=== PATIENT | male | born 1940 | race Caucasian/White ===

== ENCOUNTER → 2016-12-01 | Outpatient (CLI) | payer MEDICARE ==
[~2016-12-01] MED LIST: ACET30TAB PO; AMIT10TA PO; AMIT50TA PO; AMOX500C PO; CARV25TA PO; CEPH500C PO; CORE3.12 PO; DIGO0.12 PO; DIOV40TA PO; HUMU70IN SC; INSULIN SQ; LEVO200T4 PO; PRAV40TA2 PO; PROC5TA PO; VALS80TA PO; VIBR100C PO; [UNRECOGNIZED DRUG - CODE] PO; antibiotic PO
[2016-12-01 10:22] LABS: MEAN CORPUSCULAR HGB CONC 36.2 g/dl (32.0-36.5); MEAN CORPUSCULAR VOLUME 88.6 fl (80.0-96.0); RED CELL DISTRIBUTION WIDTH 12.7 % (11.5-14.5); WHITE BLOOD COUNT 4.6 K/mm3 (4.0-10.0)
[2016-12-01 10:29] LABS: INR 0.98
[2016-12-01 10:51] LABS: ALBUMIN 3.2 GM/DL (3.2-5.2); ALBUMIN/GLOBULIN RATIO 1.1 (1.00-1.93); BILIRUBIN,TOTAL 0.3 MG/DL (0.2-1.0); CALCIUM LEVEL 8.7 MG/DL (8.8-10.2); CREATININE FOR GFR 1.51 MG/DL (0.70-1.30); GLOMERULAR FILTRATION RATE 48.2 (>42); POTASSIUM SERUM 4.2 MEQ/L (3.5-5.1); TOTAL PROTEIN 6.1 GM/DL (6.4-8.2)
--- NOTE | 2016-12-01 11:05 | REP ---
Clinical: Preoperative assessment . Comparison: 04/20/2016 . Technique: PA and lateral. Findings: The mediastinum and cardiac silhouette are stable. The lung barrios demonstrate chronic stable changes without acute consolidation, effusion, or pneumothorax. The skeletal structures are intact and normal. Impression: 1. No acute cardiopulmonary process. Signed by Buzz Devine MD 12/01/2016 10:56 A
--- NOTE | 2016-12-01 22:21 | ECGEPIP ---
Stationary ECG Study [facility] Test Date: 2016-12-01 Pat Name: CESILIA SANDOVAL Department: Room: - Gender: M Ladle Watcher: : 1940 Requested By: Lesa Mackey Order Number: [id number] Reading MD: Fer Whaley Measurements Intervals [place] Rate: 62 P: 59 OR: 178 QRS: -73 QRSD: 109 T: 51 QT: 404 QTc: 411 Interpretive Statements SINUS RHYTHM OLD INFERIOR MYOCARDIAL INFARCTION Low limb lead voltages, nonspecific T-wave abnormalities. Marked left axis deviation, possible left anterior fascicular block. No significant change compared with 04/20/2016. Electronically Signed On 12-01-2016 22:21:36 EST by Fer Whaley
== END ==
LOC: M LAB 09:42
PROVIDERS: ATTEND Family Medicine
DX: Z01.818 Encounter for other preprocedural examination (principal); H25.9 Unspecified age-related cataract; I10 Essential (primary) hypertension; E11.9 Type 2 diabetes mellitus without complications

== ENCOUNTER → 2016-12-09 | Day surgery (SDC) | payer MEDICARE ==
[~2016-12-09] VITALS: Ht 188 cm; Wt 79.8 kg
[~2016-12-09] MED LIST changes: +ACETAMINOPHEN 325 MG TAB PO PRN; +AcetaZOLAMIDE 500 MG ER CAP PO ONE; +BSS with VANC/TOB/EPI for EYE CASES IR ONE; +CYCLOPENTOLATE 2% OPHTH SOLN XX ONE; +D5W/0.2% SODIUM CHLORIDE 250 ML IV SCH; +HEALON DUET (HEALON 10MG/ML 0.55ML & HEALON ENDOCOAT 30MG/ML 0.85ML) As Ordered ONE; +HEALON DUET (HEALON 10MG/ML 0.55ML & HEALON ENDOCOAT 30MG/ML 0.85ML) XX ONE; +KETOROLAC 0.5% OPHTH SOLN OD ONE; +LIDOCAINE 1% SDV 5 ML VIAL As Ordered ONE; +LIDOCAINE 1% SDV 5 ML VIAL XX ONE; +LIDOCAINE 4% INJ 5 ML AMP OU ONE; +LIDOCAINE W/EPINEPHRINE 1% 20ML VIAL XX ONE; +LR 1,000 ML IV SCH; +MIDAZOLAM INJ 2 MG/2 ML VIAL (J2250) As Ordered ONE; +MOXIFLOXACIN IN BSS 0.25MG/0.25ML INTRACAMERAL INJ (OR EYE ONLY)(J2280) As Ordered ONE; +MOXIFLOXACIN IN BSS 0.25MG/0.25ML INTRACAMERAL INJ (OR EYE ONLY)(J2280) ICAM ONE; +OFLOXACIN 0.3 % (OCUFLOX) OPTH SOL 5ML XX ONE; +PHENYLEPHRINE 2.5% OPHTH SOL 2ML XX ONE; +POVIDONE-IODINE 5% OPHTH PREP SOL 30ML As Ordered ONE; +PROPARACAINE 0.5% OPHTH SOL 15ML OD PRN; +TRIAMCINOLONE PRES FR 40 MG/ML 1ML(TRIESENCE)(OR EYE ONLY)(J3300 PER 1MG) As Ordered ONE; +TRIAMCINOLONE PRES FR 40 MG/ML 1ML(TRIESENCE)(OR EYE ONLY)(J3300 PER 1MG) IO ONE; +TRIMETHOBENZAMIDE 300 MG CAP PO PRN; +TROPICAMIDE 1% OPHTH SOLN 2 ML XX ONE; +fentaNYL 100 MCG/2 ML INJECTION (J3010) As Ordered ONE
[2016-12-09 11:15] VITALS: BP 150/74
== END | disposition home or self-care (01) ==
LOC: M SDC 09:33
PROVIDERS: ATTEND Ophthalmology
DX: H26.9 Unspecified cataract (principal); I10 Essential (primary) hypertension; E10.9 Type 1 diabetes mellitus without complications; I49.9 Cardiac arrhythmia, unspecified; K59.00 Constipation, unspecified; E78.00 Pure hypercholesterolemia, unspecified; K21.9 Gastro-esophageal reflux disease without esophagitis; M54.2 Cervicalgia; M19.90 Unspecified osteoarthritis, unspecified site; Z88.8 Allergy status to other drugs, medicaments and biological substances
CPT/HCPCS: 66984; J2250; J2280; J3010; J3300; V2632

== ENCOUNTER → 2016-12-16 | Day surgery (SDC) | payer MEDICARE ==
[~2016-12-16] VITALS: Ht 188 cm; Wt 79.8 kg
[~2016-12-16] MED LIST changes: +CYCLOPENTOLATE 2% OPHTH SOLN As Ordered ONE; +CYCLOPENTOLATE 2% OPHTH SOLN OS ONE; -CYCLOPENTOLATE 2% OPHTH SOLN XX ONE; -D5W/0.2% SODIUM CHLORIDE 250 ML IV SCH; -HEALON DUET (HEALON 10MG/ML 0.55ML & HEALON ENDOCOAT 30MG/ML 0.85ML) XX ONE; -KETOROLAC 0.5% OPHTH SOLN OD ONE; +KETOROLAC 0.5% OPHTH SOLN OS ONE; +LABETALOL HCL 100 MG/20 ML VIAL As Ordered ONE; -LIDOCAINE 1% SDV 5 ML VIAL XX ONE; +LIDOCAINE W/EPINEPHRINE 1% 20ML VIAL As Ordered ONE; -LIDOCAINE W/EPINEPHRINE 1% 20ML VIAL XX ONE; -LR 1,000 ML IV SCH; -MOXIFLOXACIN IN BSS 0.25MG/0.25ML INTRACAMERAL INJ (OR EYE ONLY)(J2280) ICAM ONE; +OFLOXACIN 0.3 % (OCUFLOX) OPTH SOL 5ML As Ordered ONE; +OFLOXACIN 0.3 % (OCUFLOX) OPTH SOL 5ML OS ONE; -OFLOXACIN 0.3 % (OCUFLOX) OPTH SOL 5ML XX ONE; +PHENYLEPHRINE 2.5% OPHTH SOL 2ML As Ordered ONE; +PHENYLEPHRINE 2.5% OPHTH SOL 2ML OS ONE; -PHENYLEPHRINE 2.5% OPHTH SOL 2ML XX ONE; -PROPARACAINE 0.5% OPHTH SOL 15ML OD PRN; +PROPARACAINE 0.5% OPHTH SOL 15ML OS PRN; -TRIAMCINOLONE PRES FR 40 MG/ML 1ML(TRIESENCE)(OR EYE ONLY)(J3300 PER 1MG) IO ONE; +TROPICAMIDE 1% OPHTH SOLN 2 ML As Ordered ONE; +TROPICAMIDE 1% OPHTH SOLN 2 ML OS ONE; -TROPICAMIDE 1% OPHTH SOLN 2 ML XX ONE
[2016-12-16 09:30] VITALS: BP 217/104
== END | disposition home or self-care (01) ==
LOC: M SDC 06:40
PROVIDERS: ATTEND Ophthalmology
DX: H26.9 Unspecified cataract (principal); I10 Essential (primary) hypertension; E10.9 Type 1 diabetes mellitus without complications; I49.9 Cardiac arrhythmia, unspecified; K21.9 Gastro-esophageal reflux disease without esophagitis; K59.00 Constipation, unspecified; E07.9 Disorder of thyroid, unspecified; M54.2 Cervicalgia; M19.90 Unspecified osteoarthritis, unspecified site; Z85.819 Personal history of malignant neoplasm of unspecified site of lip, oral cavity, and pharynx; Z92.3 Personal history of irradiation; Z88.8 Allergy status to other drugs, medicaments and biological substances; Z79.899 Other long term (current) drug therapy
CPT/HCPCS: 66984; J2250; J2280; J3010; J3300; V2632

== ENCOUNTER → 2017-11-15 | Outpatient (CLI) | payer MEDICARE ==
[2017-11-15 13:22] LABS: HEMOGLOBIN 13.6 g/dl (14.0-18.0); MEAN CORPUSCULAR VOLUME 88.1 fl (80.0-96.0); PLATELET COUNT, AUTOMATED 305 10^3/uL (150-450); RED BLOOD COUNT 4.54 10^6/uL (4.30-6.10); RED CELL DISTRIBUTION WIDTH 12.7 % (11.5-14.5)
[2017-11-15 13:49] LABS: ESTIMATED AVERAGE GLUCOSE 321 MG/DL (60-110); HEMOGLOBIN A1c 12.8 %
[2017-11-15 14:22] LABS: ALBUMIN 3.3 GM/DL (3.2-5.2); ALBUMIN/GLOBULIN RATIO 0.94 (1.00-1.93); ALKALINE PHOSPHATASE 101 U/L (45-117); ALT/SGPT 17 U/L (12-78); ANION GAP 5 MEQ/L (8-16); AST/SGOT 15 U/L (7-37); BILIRUBIN,TOTAL 0.4 MG/DL (0.2-1.0); BLOOD UREA NITROGEN 35 MG/DL (7-18); CALCIUM LEVEL 8.9 MG/DL (8.8-10.2); CARBON DIOXIDE LEVEL 33 MEQ/L (21-32); CHLORIDE LEVEL 95 MEQ/L (98-107); CHOLESTEROL LEVEL 154 MG/DL (<200); CHOLESTEROL RISK RATIO 2.961 (<5); CREATININE FOR GFR 1.52 MG/DL (0.70-1.30); GLOMERULAR FILTRATION RATE 47.7 (>42); GLUCOSE, FASTING 318 MG/DL (70-100); HDL CHOLESTEROL 52 MG/DL (>40); NON-HDL-C 102 MG/DL; POTASSIUM SERUM 5.1 MEQ/L (3.5-5.1); PROSTATIC SPECIFIC AG MONITOR 0.93 NG/ML (< 4.0); SODIUM LEVEL 133 MEQ/L (136-145); TOTAL PROTEIN 6.8 GM/DL (6.4-8.2); TRIGLYCERIDES LEVEL 115 MG/DL (<150)
== END ==
LOC: M LAB 12:16
DX: I10 Essential (primary) hypertension (principal); E11.9 Type 2 diabetes mellitus without complications; N40.0 Benign prostatic hyperplasia without lower urinary tract symptoms; I44.4 Left anterior fascicular block; I45.9 Conduction disorder, unspecified
CPT/HCPCS: 71046

== ENCOUNTER → 2019-03-10 | Outpatient (CLI) | payer MEDICARE ==
[~2019-03-10] MED LIST changes: +ACET-716 PO; -ACET30TAB PO; -ACETAMINOPHEN 325 MG TAB PO PRN; -AcetaZOLAMIDE 500 MG ER CAP PO ONE; -BSS with VANC/TOB/EPI for EYE CASES IR ONE; -CYCLOPENTOLATE 2% OPHTH SOLN As Ordered ONE; -CYCLOPENTOLATE 2% OPHTH SOLN OS ONE; -HEALON DUET (HEALON 10MG/ML 0.55ML & HEALON ENDOCOAT 30MG/ML 0.85ML) As Ordered ONE; -KETOROLAC 0.5% OPHTH SOLN OS ONE; -LABETALOL HCL 100 MG/20 ML VIAL As Ordered ONE; -LIDOCAINE 1% SDV 5 ML VIAL As Ordered ONE; -LIDOCAINE 4% INJ 5 ML AMP OU ONE; -LIDOCAINE W/EPINEPHRINE 1% 20ML VIAL As Ordered ONE; -MIDAZOLAM INJ 2 MG/2 ML VIAL (J2250) As Ordered ONE; -MOXIFLOXACIN IN BSS 0.25MG/0.25ML INTRACAMERAL INJ (OR EYE ONLY)(J2280) As Ordered ONE; -OFLOXACIN 0.3 % (OCUFLOX) OPTH SOL 5ML As Ordered ONE; -OFLOXACIN 0.3 % (OCUFLOX) OPTH SOL 5ML OS ONE; -PHENYLEPHRINE 2.5% OPHTH SOL 2ML As Ordered ONE; -PHENYLEPHRINE 2.5% OPHTH SOL 2ML OS ONE; -POVIDONE-IODINE 5% OPHTH PREP SOL 30ML As Ordered ONE; -PROPARACAINE 0.5% OPHTH SOL 15ML OS PRN; -TRIAMCINOLONE PRES FR 40 MG/ML 1ML(TRIESENCE)(OR EYE ONLY)(J3300 PER 1MG) As Ordered ONE; -TRIMETHOBENZAMIDE 300 MG CAP PO PRN; -TROPICAMIDE 1% OPHTH SOLN 2 ML As Ordered ONE; -TROPICAMIDE 1% OPHTH SOLN 2 ML OS ONE; -fentaNYL 100 MCG/2 ML INJECTION (J3010) As Ordered ONE
[2019-03-10 10:00] LABS: HEMATOCRIT 39.6 % (42.0-52.0); HEMOGLOBIN 13.2 g/dl (13.5-17.5); MEAN CORPUSCULAR HEMOGLOBIN 30.1 pg (27.0-33.0); MEAN CORPUSCULAR HGB CONC 33.3 g/dl (32.0-36.5); MEAN CORPUSCULAR VOLUME 90.4 fl (80.0-96.0); PLATELET COUNT, AUTOMATED 299 10^3/uL (150-450); RED BLOOD COUNT 4.38 10^6/uL (4.30-6.10); WHITE BLOOD COUNT 6.5 10^3/uL (4.0-10.0)
[2019-03-10 10:27] LABS: HEMOGLOBIN A1c 12.5 %
[2019-03-10 10:38] LABS: ALBUMIN 3.1 GM/DL (3.2-5.2); BILIRUBIN,TOTAL 0.4 MG/DL (0.2-1.0); CALCIUM LEVEL 9.1 MG/DL (8.8-10.2); CHOLESTEROL RISK RATIO 3.425 (<5); CREATININE FOR GFR 1.81 MG/DL (0.70-1.30); GLOMERULAR FILTRATION RATE 38.9 (>42); POTASSIUM SERUM 4.6 MEQ/L (3.5-5.1); PROSTATIC SPECIFIC AG MONITOR 1.26 NG/ML (< 4.00); THYROID STIMULATING HORMONE 71.1 uIU/ML (0.358-3.740); TOTAL PROTEIN 6.4 GM/DL (6.4-8.2)
== END ==
LOC: M LAB 09:18
PROVIDERS: ATTEND Family Medicine
DX: E03.9 Hypothyroidism, unspecified (principal); I10 Essential (primary) hypertension; E11.9 Type 2 diabetes mellitus without complications; R53.83 Other fatigue

== ENCOUNTER 2020-05-07 22:10 | Inpatient (IN) | payer MEDICARE ==
[~2020-05-07 22:10] MED LIST changes: -PROC5TA PO; +PROC5TAB57 PO
[2020-05-07] MEDS ORDERED: FUROSEMIDE 40MG/4ML VIAL (J1940) ONE (23:01)
[2020-05-08] MEDS ORDERED: hydrALAZINE 20MG/ML 1ML VIAL (J0360 PER 20MG) ONE (00:38)
[2020-05-08] MEDS ORDERED: HumaLOG INSULIN (NovoLOG) PER UNIT As Ordered ONE ×4 (09:02→20:35)
[2020-05-08] MEDS ORDERED: CARVedilol 12.5 MG TAB As Ordered ONE ×2 (09:03→20:35)
[2020-05-08] MEDS ORDERED: DIGOXIN 0.125 MG TAB As Ordered ONE (09:03)
[2020-05-08] MEDS ORDERED: FUROSEMIDE 40MG/4ML VIAL (J1940) As Ordered ONE ×2 (09:03→17:49)
[2020-05-08] MEDS ORDERED: LIDOCAINE 5% (LIDODERM) PATCH As Ordered ONE (09:05)
[2020-05-08] MEDS ORDERED: NORCO, ANEXSIA 5/325MG TABLET (HYDROcodone/ACETAMINOPHEN) As Ordered ONE (17:49)
[2020-05-08] MEDS ORDERED: AMITRIPTYLINE 50 MG TAB As Ordered ONE (20:35)
[2020-05-08] MEDS ORDERED: CARVedilol 12.5 MG TAB ONE (23:05)
[2020-05-09] MEDS ORDERED: FUROSEMIDE 40MG/4ML VIAL (J1940) As Ordered ONE ×5 (00:06→23:57)
[2020-05-09] MEDS ORDERED: LEVOTHYROXINE 50MCG TABLET (0.05MG) As Ordered ONE (06:33)
[2020-05-09] MEDS ORDERED: LEVOTHYROXINE 100MCG TABLET (0.1MG) As Ordered ONE (06:33)
[2020-05-09] MEDS ORDERED: PRAVASTATIN 20 MG TAB As Ordered ONE (08:07)
[2020-05-09] MEDS ORDERED: HumaLOG INSULIN (NovoLOG) PER UNIT As Ordered ONE ×3 (08:07→18:51)
[2020-05-09] MEDS ORDERED: CARVedilol 12.5 MG TAB As Ordered ONE ×2 (08:07→23:55)
[2020-05-09] MEDS ORDERED: LOSARTAN 50MG TABLET As Ordered ONE (08:08)
[2020-05-09] MEDS ORDERED: DIGOXIN 0.125 MG TAB As Ordered ONE (08:08)
[2020-05-09] MEDS ORDERED: LIDOCAINE 5% (LIDODERM) PATCH As Ordered ONE (08:08)
[2020-05-09] MEDS ORDERED: AMITRIPTYLINE 50 MG TAB As Ordered ONE (20:29)
[2020-05-10] MEDS ORDERED: FUROSEMIDE 40MG/4ML VIAL (J1940) As Ordered ONE ×3 (05:57→18:13)
[2020-05-10] MEDS ORDERED: LEVOTHYROXINE 75MCG TABLET (0.075MG) As Ordered ONE (05:57)
[2020-05-10] MEDS ORDERED: PRAVASTATIN 20 MG TAB As Ordered ONE (08:24)
[2020-05-10] MEDS ORDERED: CARVedilol 12.5 MG TAB As Ordered ONE ×2 (08:24→20:48)
[2020-05-10] MEDS ORDERED: HumaLOG INSULIN (NovoLOG) PER UNIT As Ordered ONE ×5 (08:24→20:58)
[2020-05-10] MEDS ORDERED: LIDOCAINE 5% (LIDODERM) PATCH As Ordered ONE (08:24)
[2020-05-10] MEDS ORDERED: DIGOXIN 0.125 MG TAB As Ordered ONE (08:24)
[2020-05-10] MEDS ORDERED: LEVEMIR (INSULIN DETEMIR) 1 UNITS/0.01ML As Ordered ONE (20:47)
[2020-05-10] MEDS ORDERED: AMITRIPTYLINE 50 MG TAB As Ordered ONE (20:48)
[2020-05-11] MEDS ORDERED: FUROSEMIDE 40MG/4ML VIAL (J1940) As Ordered ONE ×3 (00:53→14:04)
[2020-05-11] MEDS ORDERED: LEVOTHYROXINE 75MCG TABLET (0.075MG) As Ordered ONE (06:02)
[2020-05-11] MEDS ORDERED: CARVedilol 12.5 MG TAB As Ordered ONE ×2 (08:28→20:51)
[2020-05-11] MEDS ORDERED: PRAVASTATIN 20 MG TAB As Ordered ONE (08:28)
[2020-05-11] MEDS ORDERED: HumaLOG INSULIN (NovoLOG) PER UNIT As Ordered ONE ×3 (08:28→18:49)
[2020-05-11] MEDS ORDERED: LIDOCAINE 5% (LIDODERM) PATCH As Ordered ONE (08:29)
[2020-05-11] MEDS ORDERED: DIGOXIN 0.125 MG TAB As Ordered ONE (14:03)
[2020-05-11] MEDS ORDERED: MIRALAX *UNIT DOSE* 17GM PACKET As Ordered ONE (15:51)
[2020-05-11] MEDS ORDERED: POTASSIUM CHLORIDE 10 MEQ SR TABLET As Ordered ONE (15:51)
[2020-05-11] MEDS ORDERED: NORCO, ANEXSIA 5/325MG TABLET (HYDROcodone/ACETAMINOPHEN) As Ordered ONE (20:50)
[2020-05-11] MEDS ORDERED: AMITRIPTYLINE 50 MG TAB As Ordered ONE (20:51)
[2020-05-11] MEDS ORDERED: HumuLIN R (REGULAR) INSULIN (NovoLIN R) **100U/ML** PER UNIT As Ordered ONE (20:51)
[2020-05-11] MEDS ORDERED: LEVEMIR (INSULIN DETEMIR) 1 UNITS/0.01ML As Ordered ONE (20:52)
[2020-05-11] MEDS ORDERED: TAMSULOSIN 0.4 MG CAP As Ordered ONE (20:52)
[2020-05-12] MEDS ORDERED: MIRALAX *UNIT DOSE* 17GM PACKET As Ordered ONE (08:42)
[2020-05-12] MEDS ORDERED: DIGOXIN 0.125 MG TAB As Ordered ONE (08:44)
[2020-05-12] MEDS ORDERED: LIDOCAINE 5% (LIDODERM) PATCH As Ordered ONE (08:44)
[2020-05-12] MEDS ORDERED: HumaLOG INSULIN (NovoLOG) PER UNIT As Ordered ONE ×4 (08:44→20:32)
[2020-05-12] MEDS ORDERED: PRAVASTATIN 20 MG TAB As Ordered ONE (08:44)
[2020-05-12] MEDS ORDERED: FUROSEMIDE 40MG/4ML VIAL (J1940) As Ordered ONE ×2 (08:45→19:46)
[2020-05-12] MEDS ORDERED: ENOXAPARIN 30MG/0.3ML SYRINGE (J1650 PER 10MG) As Ordered ONE (19:36)
[2020-05-12] MEDS ORDERED: TAMSULOSIN 0.4 MG CAP As Ordered ONE (20:32)
[2020-05-12] MEDS ORDERED: AMITRIPTYLINE 50 MG TAB As Ordered ONE (20:32)
[2020-05-12] MEDS ORDERED: LEVEMIR (INSULIN DETEMIR) 1 UNITS/0.01ML As Ordered ONE (20:33)
[2020-05-12] MEDS ORDERED: CARVedilol 12.5 MG TAB As Ordered ONE (20:39)
[2020-05-13] MEDS ORDERED: LEVOTHYROXINE 75MCG TABLET (0.075MG) As Ordered ONE (05:50)
[2020-05-13] MEDS ORDERED: MIRALAX *UNIT DOSE* 17GM PACKET As Ordered ONE (08:43)
[2020-05-13] MEDS ORDERED: HumaLOG INSULIN (NovoLOG) PER UNIT As Ordered ONE ×4 (08:44→20:44)
[2020-05-13] MEDS ORDERED: PRAVASTATIN 20 MG TAB As Ordered ONE (08:44)
[2020-05-13] MEDS ORDERED: FUROSEMIDE 40MG/4ML VIAL (J1940) As Ordered ONE ×2 (08:45→17:39)
[2020-05-13] MEDS ORDERED: CARVedilol 12.5 MG TAB As Ordered ONE ×2 (08:45→20:44)
[2020-05-13] MEDS ORDERED: LIDOCAINE 5% (LIDODERM) PATCH As Ordered ONE (08:45)
[2020-05-13] MEDS ORDERED: DIGOXIN 0.125 MG TAB As Ordered ONE (08:45)
[2020-05-13] MEDS ORDERED: ENOXAPARIN 30MG/0.3ML SYRINGE (J1650 PER 10MG) As Ordered ONE (08:51)
[2020-05-13] MEDS ORDERED: TAMSULOSIN 0.4 MG CAP As Ordered ONE (20:44)
[2020-05-13] MEDS ORDERED: AMITRIPTYLINE 50 MG TAB As Ordered ONE (20:44)
[2020-05-13] MEDS ORDERED: LEVEMIR (INSULIN DETEMIR) 1 UNITS/0.01ML As Ordered ONE (20:45)
[2020-05-14] MEDS ORDERED: ENOXAPARIN 30MG/0.3ML SYRINGE (J1650 PER 10MG) As Ordered ONE (08:37)
[2020-05-14] MEDS ORDERED: MIRALAX *UNIT DOSE* 17GM PACKET As Ordered ONE (08:37)
[2020-05-14] MEDS ORDERED: HumaLOG INSULIN (NovoLOG) PER UNIT As Ordered ONE ×4 (08:38→21:20)
[2020-05-14] MEDS ORDERED: PRAVASTATIN 20 MG TAB As Ordered ONE (08:38)
[2020-05-14] MEDS ORDERED: CARVedilol 12.5 MG TAB As Ordered ONE ×2 (08:38→21:20)
[2020-05-14] MEDS ORDERED: FUROSEMIDE 40MG/4ML VIAL (J1940) As Ordered ONE (08:39)
[2020-05-14] MEDS ORDERED: LIDOCAINE 5% (LIDODERM) PATCH As Ordered ONE (08:39)
[2020-05-14] MEDS ORDERED: DIGOXIN 0.125 MG TAB As Ordered ONE (08:39)
[2020-05-14] MEDS ORDERED: TORSEMIDE 20 MG TAB As Ordered ONE (17:25)
[2020-05-14] MEDS ORDERED: AMITRIPTYLINE 50 MG TAB As Ordered ONE (21:20)
[2020-05-14] MEDS ORDERED: TAMSULOSIN 0.4 MG CAP As Ordered ONE (21:21)
[2020-05-14] MEDS ORDERED: LEVEMIR (INSULIN DETEMIR) 1 UNITS/0.01ML As Ordered ONE (21:21)
[2020-05-14] MEDS ORDERED: NORCO, ANEXSIA 5/325MG TABLET (HYDROcodone/ACETAMINOPHEN) As Ordered ONE (21:25)
[2020-05-15] MEDS ORDERED: ENOXAPARIN 30MG/0.3ML SYRINGE (J1650 PER 10MG) As Ordered ONE (08:13)
[2020-05-15] MEDS ORDERED: MIRALAX *UNIT DOSE* 17GM PACKET As Ordered ONE (08:14)
[2020-05-15] MEDS ORDERED: PRAVASTATIN 20 MG TAB As Ordered ONE (08:15)
[2020-05-15] MEDS ORDERED: HumaLOG INSULIN (NovoLOG) PER UNIT As Ordered ONE ×3 (08:15→20:48)
[2020-05-15] MEDS ORDERED: CARVedilol 12.5 MG TAB As Ordered ONE (08:16)
[2020-05-15] MEDS ORDERED: LIDOCAINE 5% (LIDODERM) PATCH As Ordered ONE (08:16)
[2020-05-15] MEDS ORDERED: DIGOXIN 0.125 MG TAB As Ordered ONE (08:16)
[2020-05-15] MEDS ORDERED: TORSEMIDE 20 MG TAB As Ordered ONE (08:16)
[2020-05-15] MEDS ORDERED: CARVedilol 6.25 MG TAB As Ordered ONE (20:48)
[2020-05-15] MEDS ORDERED: AMITRIPTYLINE 50 MG TAB As Ordered ONE (20:48)
[2020-05-15] MEDS ORDERED: TAMSULOSIN 0.4 MG CAP As Ordered ONE (20:48)
[2020-05-15] MEDS ORDERED: LEVEMIR (INSULIN DETEMIR) 1 UNITS/0.01ML As Ordered ONE (20:49)
[2020-05-16] MEDS ORDERED: LEVOTHYROXINE 75MCG TABLET (0.075MG) As Ordered ONE (05:50)
[2020-05-16] MEDS ORDERED: ENOXAPARIN 30MG/0.3ML SYRINGE (J1650 PER 10MG) As Ordered ONE (08:27)
[2020-05-16] MEDS ORDERED: PRAVASTATIN 20 MG TAB As Ordered ONE (08:28)
[2020-05-16] MEDS ORDERED: HumaLOG INSULIN (NovoLOG) PER UNIT As Ordered ONE ×4 (08:28→20:36)
[2020-05-16] MEDS ORDERED: CARVedilol 6.25 MG TAB As Ordered ONE ×2 (08:29→20:37)
[2020-05-16] MEDS ORDERED: TORSEMIDE 20 MG TAB As Ordered ONE (08:29)
[2020-05-16] MEDS ORDERED: LIDOCAINE 5% (LIDODERM) PATCH As Ordered ONE (08:29)
[2020-05-16] MEDS ORDERED: DIGOXIN 0.125 MG TAB As Ordered ONE (08:29)
[2020-05-16] MEDS ORDERED: MIRALAX *UNIT DOSE* 17GM PACKET As Ordered ONE (08:39)
[2020-05-16] MEDS ORDERED: FINASTERIDE 5 MG TAB As Ordered ONE (12:42)
[2020-05-16] MEDS ORDERED: AMITRIPTYLINE 50 MG TAB As Ordered ONE (20:37)
[2020-05-16] MEDS ORDERED: TAMSULOSIN 0.4 MG CAP As Ordered ONE (20:37)
[2020-05-16] MEDS ORDERED: LEVEMIR (INSULIN DETEMIR) 1 UNITS/0.01ML As Ordered ONE (20:38)
[2020-05-17] MEDS ORDERED: LEVOTHYROXINE 75MCG TABLET (0.075MG) As Ordered ONE (05:35)
[2020-05-17] MEDS ORDERED: ENOXAPARIN 30MG/0.3ML SYRINGE (J1650 PER 10MG) As Ordered ONE (08:19)
[2020-05-17] MEDS ORDERED: PRAVASTATIN 20 MG TAB As Ordered ONE (08:20)
[2020-05-17] MEDS ORDERED: FINASTERIDE 5 MG TAB As Ordered ONE (08:20)
[2020-05-17] MEDS ORDERED: DIGOXIN 0.125 MG TAB As Ordered ONE (08:20)
[2020-05-17] MEDS ORDERED: MIRALAX *UNIT DOSE* 17GM PACKET As Ordered ONE (08:20)
[2020-05-17] MEDS ORDERED: LIDOCAINE 5% (LIDODERM) PATCH As Ordered ONE (08:21)
[2020-05-17] MEDS ORDERED: CARVedilol 6.25 MG TAB As Ordered ONE ×2 (08:21→21:00)
[2020-05-17] MEDS ORDERED: TORSEMIDE 20 MG TAB As Ordered ONE ×2 (08:21→21:00)
[2020-05-17] MEDS ORDERED: HumaLOG INSULIN (NovoLOG) PER UNIT As Ordered ONE ×3 (08:22→17:07)
[2020-05-17] MEDS ORDERED: LEVOTHYROXINE 150MCG TABLET (0.15MG) ONE (13:00)
[2020-05-17] MEDS ORDERED: TAMSULOSIN 0.4 MG CAP As Ordered ONE (21:00)
[2020-05-17] MEDS ORDERED: AMITRIPTYLINE 50 MG TAB As Ordered ONE (21:00)
[2020-05-17] MEDS ORDERED: LEVEMIR (INSULIN DETEMIR) 1 UNITS/0.01ML As Ordered ONE (21:02)
[2020-05-18] MEDS ORDERED: MIRALAX *UNIT DOSE* 17GM PACKET As Ordered ONE (08:09)
[2020-05-18] MEDS ORDERED: ENOXAPARIN 30MG/0.3ML SYRINGE (J1650 PER 10MG) As Ordered ONE (08:09)
[2020-05-18] MEDS ORDERED: PRAVASTATIN 20 MG TAB As Ordered ONE (08:10)
[2020-05-18] MEDS ORDERED: HumaLOG INSULIN (NovoLOG) PER UNIT As Ordered ONE ×3 (08:10→21:16)
[2020-05-18] MEDS ORDERED: FINASTERIDE 5 MG TAB As Ordered ONE (08:10)
[2020-05-18] MEDS ORDERED: DIGOXIN 0.125 MG TAB As Ordered ONE (08:10)
[2020-05-18] MEDS ORDERED: TORSEMIDE 20 MG TAB As Ordered ONE ×2 (08:10→21:04)
[2020-05-18] MEDS ORDERED: CARVedilol 6.25 MG TAB As Ordered ONE ×2 (08:11→21:04)
[2020-05-18] MEDS ORDERED: LIDOCAINE 5% (LIDODERM) PATCH As Ordered ONE (08:11)
[2020-05-18] MEDS ORDERED: AMITRIPTYLINE 50 MG TAB As Ordered ONE (21:04)
[2020-05-18] MEDS ORDERED: TAMSULOSIN 0.4 MG CAP As Ordered ONE (21:05)
[2020-05-18] MEDS ORDERED: LEVEMIR (INSULIN DETEMIR) 1 UNITS/0.01ML As Ordered ONE (21:07)
[2020-05-19] MEDS ORDERED: LEVOTHYROXINE 150MCG TABLET (0.15MG) As Ordered ONE (05:39)
[2020-05-19] MEDS ORDERED: MIRALAX *UNIT DOSE* 17GM PACKET As Ordered ONE (08:11)
[2020-05-19] MEDS ORDERED: ENOXAPARIN 30MG/0.3ML SYRINGE (J1650 PER 10MG) As Ordered ONE (08:11)
[2020-05-19] MEDS ORDERED: FINASTERIDE 5 MG TAB As Ordered ONE (08:15)
[2020-05-19] MEDS ORDERED: HumaLOG INSULIN (NovoLOG) PER UNIT As Ordered ONE ×4 (08:15→20:41)
[2020-05-19] MEDS ORDERED: DIGOXIN 0.125 MG TAB As Ordered ONE (08:15)
[2020-05-19] MEDS ORDERED: PRAVASTATIN 20 MG TAB As Ordered ONE (08:15)
[2020-05-19] MEDS ORDERED: LIDOCAINE 5% (LIDODERM) PATCH As Ordered ONE (08:16)
[2020-05-19] MEDS ORDERED: TORSEMIDE 20 MG TAB As Ordered ONE (08:16)
[2020-05-19] MEDS ORDERED: CARVedilol 6.25 MG TAB As Ordered ONE ×2 (08:16→20:41)
[2020-05-19] MEDS ORDERED: LEVOTHYROXINE 150MCG TABLET (0.15MG) ONE (11:00)
[2020-05-19] MEDS ORDERED: AMITRIPTYLINE 50 MG TAB As Ordered ONE (20:41)
[2020-05-19] MEDS ORDERED: SENNA 8.6 MG TAB (SENOKOT) As Ordered ONE (20:41)
[2020-05-19] MEDS ORDERED: TAMSULOSIN 0.4 MG CAP As Ordered ONE (20:41)
[2020-05-19] MEDS ORDERED: LEVEMIR (INSULIN DETEMIR) 1 UNITS/0.01ML As Ordered ONE (20:42)
[2020-05-20] MEDS ORDERED: LEVOTHYROXINE 125MCG TABLET (0.125MG) As Ordered ONE (05:48)
[2020-05-20] MEDS ORDERED: LEVOTHYROXINE 25MCG TABLET (0.025MG) As Ordered ONE (05:48)
[2020-05-20] MEDS ORDERED: ENOXAPARIN 30MG/0.3ML SYRINGE (J1650 PER 10MG) As Ordered ONE (08:22)
[2020-05-20] MEDS ORDERED: MIRALAX *UNIT DOSE* 17GM PACKET As Ordered ONE (08:22)
[2020-05-20] MEDS ORDERED: HumaLOG INSULIN (NovoLOG) PER UNIT As Ordered ONE ×4 (08:24→21:33)
[2020-05-20] MEDS ORDERED: FINASTERIDE 5 MG TAB As Ordered ONE (08:25)
[2020-05-20] MEDS ORDERED: CARVedilol 6.25 MG TAB As Ordered ONE ×2 (08:25→21:30)
[2020-05-20] MEDS ORDERED: PRAVASTATIN 20 MG TAB As Ordered ONE (08:25)
[2020-05-20] MEDS ORDERED: DIGOXIN 0.125 MG TAB As Ordered ONE (08:25)
[2020-05-20] MEDS ORDERED: LIDOCAINE 5% (LIDODERM) PATCH As Ordered ONE (08:26)
[2020-05-20] MEDS ORDERED: SENNA 8.6 MG TAB (SENOKOT) As Ordered ONE ×2 (08:26→21:30)
[2020-05-20] MEDS ORDERED: TORSEMIDE 10 MG TABLET As Ordered ONE (08:26)
[2020-05-20] MEDS ORDERED: NORCO, ANEXSIA 5/325MG TABLET (HYDROcodone/ACETAMINOPHEN) As Ordered ONE (12:37)
[2020-05-20] MEDS ORDERED: MOM 30ML SUSPENSION UDC As Ordered ONE (19:34)
[2020-05-20] MEDS ORDERED: TAMSULOSIN 0.4 MG CAP As Ordered ONE (21:30)
[2020-05-20] MEDS ORDERED: AMITRIPTYLINE 50 MG TAB As Ordered ONE (21:30)
[2020-05-20] MEDS ORDERED: LEVEMIR (INSULIN DETEMIR) 1 UNITS/0.01ML As Ordered ONE (21:32)
[2020-05-21] MEDS ORDERED: ENOXAPARIN 30MG/0.3ML SYRINGE (J1650 PER 10MG) As Ordered ONE (08:19)
[2020-05-21] MEDS ORDERED: MIRALAX *UNIT DOSE* 17GM PACKET As Ordered ONE (08:19)
[2020-05-21] MEDS ORDERED: HumaLOG INSULIN (NovoLOG) PER UNIT As Ordered ONE ×4 (08:21→20:43)
[2020-05-21] MEDS ORDERED: FINASTERIDE 5 MG TAB As Ordered ONE (08:21)
[2020-05-21] MEDS ORDERED: DIGOXIN 0.125 MG TAB As Ordered ONE (08:22)
[2020-05-21] MEDS ORDERED: PRAVASTATIN 20 MG TAB As Ordered ONE (08:22)
[2020-05-21] MEDS ORDERED: CARVedilol 6.25 MG TAB As Ordered ONE ×2 (08:22→20:43)
[2020-05-21] MEDS ORDERED: TORSEMIDE 10 MG TABLET As Ordered ONE (08:23)
[2020-05-21] MEDS ORDERED: SENNA 8.6 MG TAB (SENOKOT) As Ordered ONE (08:23)
[2020-05-21] MEDS ORDERED: LIDOCAINE 5% (LIDODERM) PATCH As Ordered ONE (08:38)
[2020-05-21] MEDS ORDERED: NORCO, ANEXSIA 5/325MG TABLET (HYDROcodone/ACETAMINOPHEN) As Ordered ONE (20:42)
[2020-05-21] MEDS ORDERED: AMITRIPTYLINE 50 MG TAB As Ordered ONE (20:43)
[2020-05-21] MEDS ORDERED: TAMSULOSIN 0.4 MG CAP As Ordered ONE (20:43)
[2020-05-21] MEDS ORDERED: LEVEMIR (INSULIN DETEMIR) 1 UNITS/0.01ML As Ordered ONE (20:44)
[2020-05-22] MEDS ORDERED: ENOXAPARIN 30MG/0.3ML SYRINGE (J1650 PER 10MG) As Ordered ONE (09:10)
[2020-05-22] MEDS ORDERED: MIRALAX *UNIT DOSE* 17GM PACKET As Ordered ONE (09:10)
[2020-05-22] MEDS ORDERED: PRAVASTATIN 20 MG TAB As Ordered ONE (09:12)
[2020-05-22] MEDS ORDERED: HumaLOG INSULIN (NovoLOG) PER UNIT As Ordered ONE ×3 (09:12→18:18)
[2020-05-22] MEDS ORDERED: FINASTERIDE 5 MG TAB As Ordered ONE (09:12)
[2020-05-22] MEDS ORDERED: DIGOXIN 0.125 MG TAB As Ordered ONE (09:13)
[2020-05-22] MEDS ORDERED: TORSEMIDE 10 MG TABLET As Ordered ONE (09:13)
[2020-05-22] MEDS ORDERED: CARVedilol 6.25 MG TAB As Ordered ONE ×2 (09:13→21:52)
[2020-05-22] MEDS ORDERED: SENNA 8.6 MG TAB (SENOKOT) As Ordered ONE (09:14)
[2020-05-22] MEDS ORDERED: LIDOCAINE 5% (LIDODERM) PATCH As Ordered ONE (09:14)
[2020-05-22] MEDS ORDERED: AMITRIPTYLINE 50 MG TAB As Ordered ONE (21:51)
[2020-05-22] MEDS ORDERED: NORCO, ANEXSIA 5/325MG TABLET (HYDROcodone/ACETAMINOPHEN) As Ordered ONE (21:51)
[2020-05-22] MEDS ORDERED: TAMSULOSIN 0.4 MG CAP As Ordered ONE (21:52)
[2020-05-22] MEDS ORDERED: LEVEMIR (INSULIN DETEMIR) 1 UNITS/0.01ML As Ordered ONE (21:53)
[2020-05-23] MEDS ORDERED: FINASTERIDE 5 MG TAB As Ordered ONE (09:35)
[2020-05-23] MEDS ORDERED: CARVedilol 6.25 MG TAB As Ordered ONE ×2 (09:36→20:56)
[2020-05-23] MEDS ORDERED: ENOXAPARIN 30MG/0.3ML SYRINGE (J1650 PER 10MG) As Ordered ONE (09:40)
[2020-05-23] MEDS ORDERED: MIRALAX *UNIT DOSE* 17GM PACKET As Ordered ONE (09:40)
[2020-05-23] MEDS ORDERED: HumaLOG INSULIN (NovoLOG) PER UNIT As Ordered ONE ×3 (09:44→17:22)
[2020-05-23] MEDS ORDERED: PRAVASTATIN 20 MG TAB As Ordered ONE (09:46)
[2020-05-23] MEDS ORDERED: TORSEMIDE 10 MG TABLET As Ordered ONE (09:47)
[2020-05-23] MEDS ORDERED: SENNA 8.6 MG TAB (SENOKOT) As Ordered ONE (09:47)
[2020-05-23] MEDS ORDERED: LIDOCAINE 5% (LIDODERM) PATCH As Ordered ONE (09:47)
[2020-05-23] MEDS ORDERED: VARIBAR NECTAR 40% w/v 240ML SUSP BTL As Ordered ONE (10:50)
[2020-05-23] MEDS ORDERED: E-Z-PAQUE 96% w/w SUSP 176GM BTL As Ordered ONE (10:50)
[2020-05-23] MEDS ORDERED: VARIBAR PUDDING 40% w/v 230ML TUBE As Ordered ONE (10:50)
[2020-05-23] MEDS ORDERED: AMITRIPTYLINE 50 MG TAB As Ordered ONE (20:56)
[2020-05-23] MEDS ORDERED: TAMSULOSIN 0.4 MG CAP As Ordered ONE (20:56)
[2020-05-23] MEDS ORDERED: LEVEMIR (INSULIN DETEMIR) 1 UNITS/0.01ML As Ordered ONE (20:57)
[2020-05-23] MEDS ORDERED: NORCO, ANEXSIA 5/325MG TABLET (HYDROcodone/ACETAMINOPHEN) As Ordered ONE (21:00)
[2020-05-24] MEDS ORDERED: HumaLOG INSULIN (NovoLOG) PER UNIT As Ordered ONE ×4 (09:29→21:21)
[2020-05-24] MEDS ORDERED: PRAVASTATIN 20 MG TAB As Ordered ONE (09:30)
[2020-05-24] MEDS ORDERED: FINASTERIDE 5 MG TAB As Ordered ONE ×2 (09:30→09:40)
[2020-05-24] MEDS ORDERED: LIDOCAINE 5% (LIDODERM) PATCH As Ordered ONE (09:31)
[2020-05-24] MEDS ORDERED: TORSEMIDE 10 MG TABLET As Ordered ONE (09:31)
[2020-05-24] MEDS ORDERED: CARVedilol 6.25 MG TAB As Ordered ONE ×2 (09:31→21:21)
[2020-05-24] MEDS ORDERED: DIGOXIN 0.125 MG TAB As Ordered ONE (09:31)
[2020-05-24] MEDS ORDERED: ENOXAPARIN 40MG/0.4ML SYRINGE (J1650 PER 10MG) As Ordered ONE (09:31)
[2020-05-24] MEDS ORDERED: AMITRIPTYLINE 50 MG TAB As Ordered ONE (21:21)
[2020-05-24] MEDS ORDERED: TAMSULOSIN 0.4 MG CAP As Ordered ONE (21:21)
[2020-05-24] MEDS ORDERED: LEVEMIR (INSULIN DETEMIR) 1 UNITS/0.01ML As Ordered ONE (21:22)
[2020-05-24] MEDS ORDERED: SENNA 8.6 MG TAB (SENOKOT) As Ordered ONE (21:22)
[2020-05-25] MEDS ORDERED: MIRALAX *UNIT DOSE* 17GM PACKET As Ordered ONE ×2 (09:20→09:57)
[2020-05-25] MEDS ORDERED: ENOXAPARIN 30MG/0.3ML SYRINGE (J1650 PER 10MG) As Ordered ONE (09:20)
[2020-05-25] MEDS ORDERED: HumaLOG INSULIN (NovoLOG) PER UNIT As Ordered ONE ×3 (09:22→17:33)
[2020-05-25] MEDS ORDERED: FINASTERIDE 5 MG TAB As Ordered ONE (09:23)
[2020-05-25] MEDS ORDERED: CARVedilol 6.25 MG TAB As Ordered ONE ×2 (09:23→21:14)
[2020-05-25] MEDS ORDERED: PRAVASTATIN 20 MG TAB As Ordered ONE (09:23)
[2020-05-25] MEDS ORDERED: DIGOXIN 0.125 MG TAB As Ordered ONE (09:23)
[2020-05-25] MEDS ORDERED: LIDOCAINE 5% (LIDODERM) PATCH As Ordered ONE (09:24)
[2020-05-25] MEDS ORDERED: SENNA 8.6 MG TAB (SENOKOT) As Ordered ONE ×2 (09:24→21:15)
[2020-05-25] MEDS ORDERED: TORSEMIDE 10 MG TABLET As Ordered ONE ×2 (09:24→21:15)
[2020-05-25] MEDS ORDERED: AMITRIPTYLINE 50 MG TAB As Ordered ONE (21:14)
[2020-05-25] MEDS ORDERED: TAMSULOSIN 0.4 MG CAP As Ordered ONE (21:14)
[2020-05-25] MEDS ORDERED: LEVEMIR (INSULIN DETEMIR) 1 UNITS/0.01ML As Ordered ONE (21:16)
[2020-05-26] MEDS ORDERED: MIRALAX *UNIT DOSE* 17GM PACKET As Ordered ONE (09:16)
[2020-05-26] MEDS ORDERED: ENOXAPARIN 30MG/0.3ML SYRINGE (J1650 PER 10MG) As Ordered ONE (09:16)
[2020-05-26] MEDS ORDERED: HumaLOG INSULIN (NovoLOG) PER UNIT As Ordered ONE ×3 (09:18→17:38)
[2020-05-26] MEDS ORDERED: TORSEMIDE 10 MG TABLET As Ordered ONE (09:19)
[2020-05-26] MEDS ORDERED: PRAVASTATIN 20 MG TAB As Ordered ONE (09:19)
[2020-05-26] MEDS ORDERED: CARVedilol 6.25 MG TAB As Ordered ONE (09:19)
[2020-05-26] MEDS ORDERED: FINASTERIDE 5 MG TAB As Ordered ONE (09:19)
[2020-05-26] MEDS ORDERED: DIGOXIN 0.125 MG TAB As Ordered ONE (09:19)
[2020-05-26] MEDS ORDERED: LIDOCAINE 5% (LIDODERM) PATCH As Ordered ONE (09:20)
[2020-05-26] MEDS ORDERED: SENNA 8.6 MG TAB (SENOKOT) As Ordered ONE ×2 (09:20→20:34)
[2020-05-26] MEDS ORDERED: AMITRIPTYLINE 50 MG TAB As Ordered ONE (20:35)
[2020-05-26] MEDS ORDERED: TORSEMIDE 20 MG TAB As Ordered ONE (20:35)
[2020-05-26] MEDS ORDERED: CARVedilol 12.5 MG TAB As Ordered ONE (20:35)
[2020-05-26] MEDS ORDERED: TAMSULOSIN 0.4 MG CAP As Ordered ONE (20:35)
[2020-05-26] MEDS ORDERED: LEVEMIR (INSULIN DETEMIR) 1 UNITS/0.01ML As Ordered ONE (20:36)
[2020-05-27] MEDS ORDERED: LEVOTHYROXINE 150MCG TABLET (0.15MG) As Ordered ONE (05:17)
[2020-05-27] MEDS ORDERED: ENOXAPARIN 30MG/0.3ML SYRINGE (J1650 PER 10MG) As Ordered ONE (08:37)
[2020-05-27] MEDS ORDERED: MIRALAX *UNIT DOSE* 17GM PACKET As Ordered ONE (08:37)
[2020-05-27] MEDS ORDERED: FINASTERIDE 5 MG TAB As Ordered ONE (08:38)
[2020-05-27] MEDS ORDERED: HumaLOG INSULIN (NovoLOG) PER UNIT As Ordered ONE ×3 (08:38→17:28)
[2020-05-27] MEDS ORDERED: DIGOXIN 0.125 MG TAB As Ordered ONE (08:39)
[2020-05-27] MEDS ORDERED: CARVedilol 12.5 MG TAB As Ordered ONE ×2 (08:39→20:57)
[2020-05-27] MEDS ORDERED: SENNA 8.6 MG TAB (SENOKOT) As Ordered ONE ×2 (08:39→20:57)
[2020-05-27] MEDS ORDERED: PRAVASTATIN 20 MG TAB As Ordered ONE (08:39)
[2020-05-27] MEDS ORDERED: LIDOCAINE 5% (LIDODERM) PATCH As Ordered ONE (08:39)
[2020-05-27] MEDS ORDERED: TORSEMIDE 10 MG TABLET As Ordered ONE (08:39)
[2020-05-27] MEDS ORDERED: LEVOTHYROXINE 150MCG TABLET (0.15MG) ONE (13:00)
[2020-05-27] MEDS ORDERED: TORSEMIDE 20 MG TAB As Ordered ONE (20:57)
[2020-05-27] MEDS ORDERED: AMITRIPTYLINE 50 MG TAB As Ordered ONE (20:57)
[2020-05-27] MEDS ORDERED: TAMSULOSIN 0.4 MG CAP As Ordered ONE (20:58)
[2020-05-27] MEDS ORDERED: LEVEMIR (INSULIN DETEMIR) 1 UNITS/0.01ML As Ordered ONE (21:00)
[2020-05-28] MEDS ORDERED: LEVOTHYROXINE 150MCG TABLET (0.15MG) As Ordered ONE (05:51)
[2020-05-28] MEDS ORDERED: HumaLOG INSULIN (NovoLOG) PER UNIT As Ordered ONE ×3 (07:49→17:46)
[2020-05-28] MEDS ORDERED: CARV12.5 PO (11:11)
[2020-05-28] MEDS ORDERED: LOSA50TA88 PO (11:11)
[2020-05-28] MEDS ORDERED: LEVO150T42 PO (11:11)
[2020-05-28] MEDS ORDERED: DIGO0.123 PO (11:11)
[2020-05-28] MEDS ORDERED: DEXTROSE 50% 50 ML SYRINGE IV PRN (11:15)
[2020-05-28] MEDS ORDERED: NORCO, ANEXSIA 5/325MG TABLET (HYDROcodone/ACETAMINOPHEN) PO PRN (11:15)
[2020-05-28] MEDS ORDERED: GLUCAGON INJ 1MG VIAL SC PRN (11:15)
[2020-05-28] MEDS ORDERED: GLUCOSE 4GM CHEW TABLET PO PRN (11:15)
[2020-05-28] MEDS ORDERED: AMITRIPTYLINE 50 MG TAB PO SCH (21:00)
[2020-05-28] MEDS ORDERED: LEVEMIR (INSULIN DETEMIR) 1 UNITS/0.01ML SC SCH (21:00)
[2020-05-28] MEDS ORDERED: HumaLOG INSULIN (NovoLOG) PER UNIT SC SCH (21:00)
[2020-05-28] MEDS ORDERED: TAMSULOSIN 0.4 MG CAP PO SCH (21:00)
[2020-05-28] MEDS: SENNA 8.6 MG TAB (SENOKOT) PO SCH (21:28)
[2020-05-28] MEDS: CARVedilol 12.5 MG TAB PO SCH (21:29)
[2020-05-29 06:00] VITALS: BP 168/85
[2020-05-29] MEDS ORDERED: LEVOTHYROXINE 150MCG TABLET (0.15MG) PO SCH (06:00)
[2020-05-29] MEDS ORDERED: PRAVASTATIN 20 MG TAB PO SCH (09:00)
[2020-05-29] MEDS ORDERED: ENOXAPARIN 30MG/0.3ML SYRINGE (J1650 PER 10MG) SC SCH (09:00)
[2020-05-29] MEDS: SENNA 8.6 MG TAB (SENOKOT) PO SCH (09:00)
[2020-05-29] MEDS ORDERED: MIRALAX *UNIT DOSE* 17GM PACKET PO SCH (09:00)
[2020-05-29] MEDS ORDERED: DIGOXIN 0.125 MG TAB PO SCH (09:00)
[2020-05-29] MEDS ORDERED: LIDOCAINE 5% (LIDODERM) PATCH TD SCH (09:00)
[2020-05-29] MEDS ORDERED: FINASTERIDE 5 MG TAB PO SCH (09:00)
[2020-05-29] MEDS: HumaLOG INSULIN (NovoLOG) PER UNIT SC SCH ×2 (09:01→12:18)
[2020-05-29 09:02] VITALS: BP 165/93
[2020-05-29] MEDS: CARVedilol 12.5 MG TAB PO SCH (09:02)
[2020-05-29] MEDS: TORSEMIDE 10 MG TABLET PO SCH ×2 (09:02→16:14)
--- NOTE | 2020-05-29 10:33 | IPNPDOC ---
Text Note Date of Service The patient was seen on 05/29/20. NOTE patient seen briefly today. Doing well, discharge papers and summary completed yesterday. No changes, discussed with patient on his new medications and prescriptions. discussed with RN. discharge to home health today. not billable visit VS,Fishbone, I+O VS, Fishbone, I+O Vital Signs Date Time Temp Pulse Resp B/P (MAP) Pulse Ox O2 Delivery O2 Flow Rate FiO2 05/29/20 09:02 82 165/93 05/29/20 06:00 97.9 20 97 I&O- Last 24 Hours up to 6 AM 05/29/20 06:00 Intake Total 180 ml Output Total 400 ml Balance -220 ml IMELDA GLASER MD May 29, 2020 10:33
[2020-06-02] MEDS ORDERED: LEVOTHYROXINE 150MCG TABLET (0.15MG) ONE (11:00)
[2020-06-15 10:59] LABS: BASO % 0.3 % (0.0-1.0); EOS # 0.1 10^3/uL (0.0-0.5); EOS % 0.5 % (0.0-3.0); HEMATOCRIT 38.4 % (42.0-52.0); HEMOGLOBIN 12.9 g/dl (13.5-17.5); LYMPH # 0.5 10^3/uL (1.5-5.0); MEAN CORPUSCULAR HEMOGLOBIN 30.4 pg (27.0-33.0); MEAN CORPUSCULAR HGB CONC 33.6 g/dl (32.0-36.5); MEAN CORPUSCULAR VOLUME 90.4 fl (80.0-96.0); MONO # 0.6 10^3/uL (0.0-0.8); MONO % 6.4 % (0.0-5.0); NEUTROPHILS # 8.2 10^3/uL (1.5-8.5); NEUTROPHILS % 87.5 % (36.0-66.0); PLATELET COUNT, AUTOMATED 384 10^3/uL (150-450); RED BLOOD COUNT 4.25 10^6/uL (4.30-6.10); WHITE BLOOD COUNT 9.4 10^3/uL (4.0-10.0)
[2020-06-15 11:14] LABS: INR 1.1; PARTIAL THROMBOPLASTIN TIME 29.5 SECONDS (25.0-38.4); PROTHROMBIN TIME 14.4 SECONDS (11.8-14.0)
[2020-06-16 10:10] LABS: HEMATOCRIT 34.4 % (42.0-52.0); HEMOGLOBIN 11.5 g/dl (13.5-17.5); MEAN CORPUSCULAR HEMOGLOBIN 30.4 pg (27.0-33.0); MEAN CORPUSCULAR HGB CONC 33.4 g/dl (32.0-36.5); PLATELET COUNT, AUTOMATED 453 10^3/uL (150-450); RED BLOOD COUNT 3.78 10^6/uL (4.30-6.10); WHITE BLOOD COUNT 8.4 10^3/uL (4.0-10.0)
--- NOTE | 2020-06-27 14:11 | ECGEPIP ---
SINUS RHYTHM LEFT ANTERIOR FASCICULAR BLOCK ABNORMAL ECG NO OLD AVAILABLE SEE SCANNED DOWNTIME REPORT MTDD
--- NOTE | 2020-06-28 12:53 | REP ---
RENAL ULTRASOUND: HISTORY: Acute renal insufficiency. TECHNIQUE: Real time, villarreal scale and color evaluation using curved array transducer. FINDINGS: The bilateral kidneys demonstrate increased central sinus fat with cortical thinning and renovascular calcifications consistent with age related renal disease. There is no evidence for hydronephrosis. The right kidney measures 9.8 x 4.9 x 4.5 cm and includes a 6 mm medial upper pole simple cyst and a 1.2 cm cortical mid-pole complex cyst versus small mass. The left kidney measures 10.6 x 4.4 x 4.7 cm and includes a 1.1 cm mid-pole simple cyst. The bladder is normal in appearance without wall thickening or mass lesion and measures currently 13.7 x 10.0 x 10.5 cm. IMPRESSION: 1. Evidence for age related renal disease. 2. Small cysts noted bilaterally as well as possible 1.2 cm right mid-pole cortical mass versus complex cyst. Consider follow up examination using contrast-enhanced CT or MRI for further investigation. JANES
--- NOTE | 2020-06-28 12:55 | ECGEPIP ---
[facility] Test Date: 2020-05-22 Pat Name: CESILIA SANDOVAL Department: Room: [place] [address] Gender: Male Sterile Products Processor: SHARIFA : 1940 Requested By: IMELDA SANCHEZ Order Number: [id number] Reading MD: Yojana Khan Measurements Intervals [place] Rate: 81 P: 30 SD: 168 QRS: -47 QRSD: 126 T: 35 QT: 382 QTc: 446 Interpretive Statements SINUS RHYTHM WITH FREQUENT VENTRICULAR PREMATURE COMPLEXES MARKED LEFT AXIS DEVIATION MODERATE INTRAVENTRICULAR CONDUCTION DELAY ABNORMAL ECG SEE SCANNED DOWNTIME REPORT
--- NOTE | 2020-06-28 12:58 | REP ---
EXAM: CHEST X-RAY: TWO VIEWS HISTORY: Congestive heart failure and acute kidney injury. Rib fractures. NOTE: Report was delayed due to a malware attack on this facility. COMPARISON: Radiographs 05/07/2020. FINDINGS: There is no evidence of pneumothorax or hydrothorax. There are multiple mildly displaced left posterior rib fractures including rib #3, #4, #5, and #6. There is a mild adjacent pleural opacity. No traumatic mediastinal widening is seen. The aorta is calcific and somewhat tortuous. There is plate- like atelectasis in the right lung base. This is a new finding from 05/07/2020. The study is otherwise unremarkable. IMPRESSION: * Mild cardiomegaly. * Ywatvxoe-[id number]-hezlp rib fractures. * Discoid atelectasis right lung base. * No evidence of pneumothorax. MTDD
[2020-06-29 15:51] LABS: APPEARANCE, URINE CLEAR (CLEAR); BACTERIA, URINE AUTO NEGATIVE (NEGATIVE); BILIRUBIN, URINE AUTO NEGATIVE (NEGATIVE); BLOOD, URINE BLOOD 2+ (NEGATIVE); COLOR, URINE YELLOW (YELLOW); GLUCOSE, URINE (UA) AUTO 2+ mg/dL (NEGATIVE); KETONE, URINE AUTO NEGATIVE (NEGATIVE); LEUKOCYTE ESTERASE, URINE AUTO NEGATIVE (NEGATIVE); NITRITE, URINE AUTO NEGATIVE (NEGATIVE); PROTEIN, URINE AUTO 2+ mg/dL (NEGATIVE); RBC, URINE AUTO 10 /HPF (0-3); SPECIFIC GRAVITY URINE AUTO 1.009 (1.002-1.035); SQUAMOUS EPITHELIAL CELL UR AU 0 /HPF (0-6); UROBILINOGEN, URINE AUTO 0.2 mg/dL (0.0-2.0); WBC, URINE AUTO 1 /HPF (0-3)
[2020-07-01 10:53] LABS: HEMATOCRIT 34.7 % (42.0-52.0); HEMOGLOBIN 11.8 g/dl (13.5-17.5); MEAN CORPUSCULAR VOLUME 91.1 fl (80.0-96.0); PLATELET COUNT, AUTOMATED 406 10^3/uL (150-450); RED BLOOD COUNT 3.81 10^6/uL (4.30-6.10)
[2020-07-02 16:48] LABS: HEMATOCRIT 31.2 % (42.0-52.0); HEMOGLOBIN 10.4 g/dl (13.5-17.5); MEAN CORPUSCULAR HEMOGLOBIN 30.4 pg (27.0-33.0); MEAN CORPUSCULAR HGB CONC 33.3 g/dl (32.0-36.5); MEAN CORPUSCULAR VOLUME 91.2 fl (80.0-96.0); PLATELET COUNT, AUTOMATED 387 10^3/uL (150-450); RED BLOOD COUNT 3.42 10^6/uL (4.30-6.10); WHITE BLOOD COUNT 6.4 10^3/uL (4.0-10.0)
--- NOTE | 2020-07-03 09:33 | REP ---
IBRAHIMA SWALLOW: The procedure was performed under the direct supervision of Dr. Gauthier. The procedure was performed with Aisha Pratt from Speech Pathology present. PROCEDURE: 5 cc Aliquots of nectar, pudding and honey consistency barium were administered. With nectar consistency barium, there is laryngeal penetration. A detailed report of his examination will be provided by Speech Pathology. 1.3 minutes of fluoroscopy time was utilized for this procedure. JANES
[2020-07-03 22:07] LABS: HEMOGLOBIN 11.6 g/dl (13.5-17.5); MEAN CORPUSCULAR HEMOGLOBIN 30.9 pg (27.0-33.0); MEAN CORPUSCULAR HGB CONC 33.1 g/dl (32.0-36.5); MEAN CORPUSCULAR VOLUME 93.3 fl (80.0-96.0); PLATELET COUNT, AUTOMATED 406 10^3/uL (150-450); RED BLOOD COUNT 3.75 10^6/uL (4.30-6.10); WHITE BLOOD COUNT 6.5 10^3/uL (4.0-10.0)
[2020-07-05 14:40] LABS: HEMATOCRIT 36.1 % (42.0-52.0); HEMOGLOBIN 11.8 g/dl (13.5-17.5); MEAN CORPUSCULAR HEMOGLOBIN 30.8 pg (27.0-33.0); MEAN CORPUSCULAR HGB CONC 32.7 g/dl (32.0-36.5); MEAN CORPUSCULAR VOLUME 94.3 fl (80.0-96.0); PLATELET COUNT, AUTOMATED 389 10^3/uL (150-450); RED BLOOD COUNT 3.83 10^6/uL (4.30-6.10); WHITE BLOOD COUNT 6.6 10^3/uL (4.0-10.0)
[2020-07-05 18:29] LABS: HEMATOCRIT 34.3 % (42.0-52.0); HEMOGLOBIN 11.2 g/dl (13.5-17.5); MEAN CORPUSCULAR HEMOGLOBIN 30.4 pg (27.0-33.0); MEAN CORPUSCULAR HGB CONC 32.7 g/dl (32.0-36.5); PLATELET COUNT, AUTOMATED 383 10^3/uL (150-450); RED BLOOD COUNT 3.69 10^6/uL (4.30-6.10); WHITE BLOOD COUNT 7.2 10^3/uL (4.0-10.0)
[2020-07-10 08:19] LABS: HEMATOCRIT 36.7 % (42.0-52.0); HEMOGLOBIN 11.8 g/dl (13.5-17.5); MEAN CORPUSCULAR HEMOGLOBIN 30.5 pg (27.0-33.0); MEAN CORPUSCULAR HGB CONC 32.2 g/dl (32.0-36.5); MEAN CORPUSCULAR VOLUME 94.8 fl (80.0-96.0); PLATELET COUNT, AUTOMATED 396 10^3/uL (150-450); RED BLOOD COUNT 3.87 10^6/uL (4.30-6.10); WHITE BLOOD COUNT 6.9 10^3/uL (4.0-10.0)
[2020-07-11 07:20] LABS: HEMATOCRIT 33.5 % (42.0-52.0); MEAN CORPUSCULAR HEMOGLOBIN 30.6 pg (27.0-33.0); MEAN CORPUSCULAR HGB CONC 32.8 g/dl (32.0-36.5); MEAN CORPUSCULAR VOLUME 93.1 fl (80.0-96.0); PLATELET COUNT, AUTOMATED 346 10^3/uL (150-450); WHITE BLOOD COUNT 6.3 10^3/uL (4.0-10.0)
[2020-07-13 11:13] LABS: HEMATOCRIT 34.8 % (42.0-52.0); HEMOGLOBIN 11.5 g/dl (13.5-17.5); MEAN CORPUSCULAR HEMOGLOBIN 30.5 pg (27.0-33.0); MEAN CORPUSCULAR VOLUME 92.3 fl (80.0-96.0); PLATELET COUNT, AUTOMATED 437 10^3/uL (150-450); RED BLOOD COUNT 3.77 10^6/uL (4.30-6.10); WHITE BLOOD COUNT 6.4 10^3/uL (4.0-10.0)
[2020-07-14 01:00] LABS: HEMATOCRIT 33.8 % (42.0-52.0); HEMOGLOBIN 11.1 g/dl (13.5-17.5); MEAN CORPUSCULAR HEMOGLOBIN 30.8 pg (27.0-33.0); MEAN CORPUSCULAR HGB CONC 32.8 g/dl (32.0-36.5); MEAN CORPUSCULAR VOLUME 93.9 fl (80.0-96.0); PLATELET COUNT, AUTOMATED 338 10^3/uL (150-450)
[2020-07-14 16:42] LABS: HEMATOCRIT 33.4 % (42.0-52.0); HEMOGLOBIN 10.8 g/dl (13.5-17.5); MEAN CORPUSCULAR HEMOGLOBIN 30.9 pg (27.0-33.0); MEAN CORPUSCULAR HGB CONC 32.3 g/dl (32.0-36.5); MEAN CORPUSCULAR VOLUME 95.4 fl (80.0-96.0); PLATELET COUNT, AUTOMATED 335 10^3/uL (150-450); WHITE BLOOD COUNT 6.1 10^3/uL (4.0-10.0)
--- NOTE | 2020-07-19 14:08 | ECHO ---
DATE OF PROCEDURE: 05/09/2020 Age: 79 years Gender: Male Height: 74 inches Weight: 190 pounds Body surface area: 2.12 sq. m. Inpatient 4 pavilion room 4217 REFERRING PHYSICIAN: Dania Hernandez MD INDICATION: Congestive heart failure (CHF). Renal disease. Hypertension. MEASUREMENTS: 2D Measurements: RV - 3.1 cm LV - 4.6 cm Septum 1.2 cm Posterior wall 1.2 cm Aortic root 4.0 cm LA - 3.2 cm LVEF 65% Doppler Measurements: AV - 1.55 m/s LVOT - 0.9 m/s LVOT diameter 2.2 cm MV-E 69, A 116, E/A ratio 0.6 Early mitral deceleration time 153 ms E prime medial 4.3, A prime medial 8.4, E prime lateral 6 Average E/E prime ratio 13.4/PCWP - 18.5 mmHg PV - 0.7 m/s Pulmonary artery acceleration time 106 ms PASP 35 mmHg IVC - 1.8 cm COMMENTS: Normal sinus rhythm without intraventricular conduction disturbance. Somewhat technically challenging study in light of the patients body habitus, but diagnostically useful information was still obtained. M-Mode and two-dimensional echocardiography was performed with pulsed, continuous wave, color flow, and tissue Doppler studies. Borderline concentric left ventricular hypertrophy with normal wall motion. At least mildly dilated left atrium visualized from the apical four chamber projection showing grade 1 left ventricular (LV) diastolic dysfunction and at least mildly elevated estimated mean left atrial pressure. Normal right heart chamber sizes and motion with current estimated pulmonary arterial pressure mildly increased. Normal inferior vena cava (IVC) size and collapse against an elevated central venous pressure. Mildly dilated aortic root. The ascending aorta was not well visualized. Moderate aortic valvular sclerosis without stenosis or insufficiency. Moderate mitral annular calcification and some thickening of the mitral leaflets, but adequate leaflet excursion and no posterior systolic buckling. Only trace insufficiency. Normal appearing tricuspid valve with no visualized insufficiency. No apparent intracardiac mass or pericardial effusion. MTDD
[2020-07-21 07:17] LABS: HEMATOCRIT 34.3 % (42.0-52.0); HEMOGLOBIN 10.9 g/dl (13.5-17.5); MEAN CORPUSCULAR HEMOGLOBIN 30.4 pg (27.0-33.0); MEAN CORPUSCULAR HGB CONC 31.8 g/dl (32.0-36.5); MEAN CORPUSCULAR VOLUME 95.8 fl (80.0-96.0); PLATELET COUNT, AUTOMATED 320 10^3/uL (150-450); RED BLOOD COUNT 3.58 10^6/uL (4.30-6.10); WHITE BLOOD COUNT 4.8 10^3/uL (4.0-10.0)
[2020-07-21 07:22] LABS: ALBUMIN 2.2 GM/DL (3.2-5.2); ALT/SGPT 15 U/L (12-78); BILIRUBIN,DIRECT < 0.1 MG/DL (0.0-0.2); BILIRUBIN,TOTAL 0.5 MG/DL (0.2-1.0); BLOOD UREA NITROGEN 54 MG/DL (7-18); CALCIUM LEVEL 7.4 MG/DL (8.8-10.2); CARBON DIOXIDE LEVEL 23 MEQ/L (21-32); CHLORIDE LEVEL 106 MEQ/L (98-107); CK-MB VALUE MASS 2.7 NG/ML (<3.6); CPK CREATINE PHOSPHOKINASE 153 U/L (39-308); CREATININE FOR GFR 2.43 MG/DL (0.70-1.30); DIGOXIN LEVEL 1.2 NG/ML (0.5-2.0); GLOMERULAR FILTRATION RATE 27.5 (>42); GLUCOSE, FASTING 208 MG/DL (70-100); MB/CK RELATIVE INDEX 1.76 (< OR =4); NT-PRO BNP 6193 PG/ML (<450); POTASSIUM SERUM 4.7 MEQ/L (3.5-5.1); SODIUM LEVEL 138 MEQ/L (136-145); TOTAL PROTEIN 5.2 GM/DL (6.4-8.2); TROPONIN I 0.02 NG/ML (< 0.10)
[2020-07-21 09:54] LABS: CREATININE FOR GFR 2.82 MG/DL (0.70-1.30); GLOMERULAR FILTRATION RATE 23.2 (>42); POTASSIUM SERUM 4.1 MEQ/L (3.5-5.1)
[2020-07-21 09:55] LABS: CALCIUM LEVEL 8.1 MG/DL (8.8-10.2); TROPONIN I 0.03 NG/ML (< 0.10)
[2020-07-21 10:06] LABS: HEMOGLOBIN A1c 11.9 %
[2020-07-21 14:43] LABS: HEMATOCRIT 33.5 % (42.0-52.0); MEAN CORPUSCULAR HEMOGLOBIN 30.1 pg (27.0-33.0); MEAN CORPUSCULAR HGB CONC 32.8 g/dl (32.0-36.5); MEAN CORPUSCULAR VOLUME 91.8 fl (80.0-96.0); PLATELET COUNT, AUTOMATED 395 10^3/uL (150-450); RED BLOOD COUNT 3.65 10^6/uL (4.30-6.10); WHITE BLOOD COUNT 6.6 10^3/uL (4.0-10.0)
[2020-07-28 20:00] LABS: ALBUMIN 2.3 GM/DL (3.2-5.2); BLOOD UREA NITROGEN 76 MG/DL (7-18); CALCIUM LEVEL 8.1 MG/DL (8.8-10.2); CARBON DIOXIDE LEVEL 34 MEQ/L (21-32); CHLORIDE LEVEL 100 MEQ/L (98-107); CREATININE FOR GFR 2.93 MG/DL (0.70-1.30); GLOMERULAR FILTRATION RATE 22.2 (>42); GLUCOSE, FASTING 243 MG/DL (70-100); PHOSPHORUS LEVEL 4.1 MG/DL (2.5-4.9); POTASSIUM SERUM 4.1 MEQ/L (3.5-5.1); SODIUM LEVEL 138 MEQ/L (136-145)
[2020-08-02 14:04] LABS: CALCIUM LEVEL 8.1 MG/DL (8.8-10.2); CREATININE FOR GFR 3.19 MG/DL (0.70-1.30); GLOMERULAR FILTRATION RATE 20.1 (>42); POTASSIUM SERUM 4.4 MEQ/L (3.5-5.1)
[2020-08-04 12:14] LABS: CALCIUM LEVEL 8.1 MG/DL (8.8-10.2); CREATININE FOR GFR 3.05 MG/DL (0.70-1.30); DIGOXIN LEVEL 1.2 NG/ML (0.5-2.0); GLOMERULAR FILTRATION RATE 21.2 (>42); MAGNESIUM LEVEL 2.1 MG/DL (1.8-2.4); POTASSIUM SERUM 3.8 MEQ/L (3.5-5.1)
[2020-08-05 09:46] LABS: ALBUMIN 2.4 GM/DL (3.2-5.2); CALCIUM LEVEL 8.6 MG/DL (8.8-10.2); CREATININE FOR GFR 2.66 MG/DL (0.70-1.30); GLOMERULAR FILTRATION RATE 24.8 (>42); MAGNESIUM LEVEL 2.3 MG/DL (1.8-2.4); PHOSPHORUS LEVEL 3.5 MG/DL (2.5-4.9); POTASSIUM SERUM 4.4 MEQ/L (3.5-5.1)
[2020-08-05 16:16] LABS: ALBUMIN 2.4 GM/DL (3.2-5.2); CALCIUM LEVEL 8.5 MG/DL (8.8-10.2); CREATININE FOR GFR 2.87 MG/DL (0.70-1.30); GLOMERULAR FILTRATION RATE 22.7 (>42); PHOSPHORUS LEVEL 3.7 MG/DL (2.5-4.9); POTASSIUM SERUM 4.6 MEQ/L (3.5-5.1)
[2020-08-06 09:32] LABS: ALBUMIN 2.2 GM/DL (3.2-5.2); CALCIUM LEVEL 7.8 MG/DL (8.8-10.2); CREATININE FOR GFR 3.13 MG/DL (0.70-1.30); GLOMERULAR FILTRATION RATE 20.6 (>42); PHOSPHORUS LEVEL 4.6 MG/DL (2.5-4.9); POTASSIUM SERUM 4.4 MEQ/L (3.5-5.1)
[2020-08-07 12:29] LABS: BASO % 0.3 % (0.0-1.0); EOS # 0.3 10^3/uL (0.0-0.5); EOS % 3.8 % (0.0-3.0); HEMATOCRIT 32.6 % (42.0-52.0); HEMOGLOBIN 10.6 g/dl (13.5-17.5); LYMPH # 0.6 10^3/uL (1.5-5.0); MEAN CORPUSCULAR HEMOGLOBIN 30.2 pg (27.0-33.0); MEAN CORPUSCULAR HGB CONC 32.5 g/dl (32.0-36.5); MEAN CORPUSCULAR VOLUME 92.9 fl (80.0-96.0); MONO # 0.6 10^3/uL (0.0-0.8); MONO % 7.6 % (0.0-5.0); NEUTROPHILS # 5.8 10^3/uL (1.5-8.5); PLATELET COUNT, AUTOMATED 393 10^3/uL (150-450); RED BLOOD COUNT 3.51 10^6/uL (4.30-6.10); WHITE BLOOD COUNT 7.3 10^3/uL (4.0-10.0)
[2020-08-07 15:13] LABS: CREATININE FOR GFR 2.95 MG/DL (0.70-1.30)
[2020-08-07 15:14] LABS: ALBUMIN 2.2 GM/DL (3.2-5.2); CALCIUM LEVEL 8.2 MG/DL (8.8-10.2); POTASSIUM SERUM 4.5 MEQ/L (3.5-5.1)
[2020-08-12 19:35] LABS: ALBUMIN 2.3 GM/DL (3.2-5.2); CALCIUM LEVEL 8.5 MG/DL (8.8-10.2); CREATININE FOR GFR 2.67 MG/DL (0.70-1.30); GLOMERULAR FILTRATION RATE 24.7 (>42); PHOSPHORUS LEVEL 3.5 MG/DL (2.5-4.9); POTASSIUM SERUM 4.5 MEQ/L (3.5-5.1)
[2020-08-12 23:13] LABS: ALBUMIN 2.3 GM/DL (3.2-5.2); CALCIUM LEVEL 8.4 MG/DL (8.8-10.2); CREATININE FOR GFR 2.72 MG/DL (0.70-1.30); GLOMERULAR FILTRATION RATE 24.2 (>42); PHOSPHORUS LEVEL 3.8 MG/DL (2.5-4.9); POTASSIUM SERUM 4.7 MEQ/L (3.5-5.1)
[2020-08-13 04:11] LABS: ALBUMIN 2.6 GM/DL (3.2-5.2); CALCIUM LEVEL 8.4 MG/DL (8.8-10.2); CREATININE FOR GFR 2.75 MG/DL (0.70-1.30); GLOMERULAR FILTRATION RATE 23.9 (>42); PHOSPHORUS LEVEL 3.7 MG/DL (2.5-4.9); POTASSIUM SERUM 4.5 MEQ/L (3.5-5.1)
[2020-08-13 13:30] LABS: ALBUMIN 2.4 GM/DL (3.2-5.2); CALCIUM LEVEL 8.2 MG/DL (8.8-10.2); CREATININE FOR GFR 2.72 MG/DL (0.70-1.30); GLOMERULAR FILTRATION RATE 24.2 (>42); PHOSPHORUS LEVEL 3.7 MG/DL (2.5-4.9); POTASSIUM SERUM 4.6 MEQ/L (3.5-5.1)
[2020-08-14 09:00] LABS: ALBUMIN 2.5 GM/DL (3.2-5.2); CALCIUM LEVEL 8.2 MG/DL (8.8-10.2); CREATININE FOR GFR 2.69 MG/DL (0.70-1.30); GLOMERULAR FILTRATION RATE 24.5 (>42); PHOSPHORUS LEVEL 3.7 MG/DL (2.5-4.9); POTASSIUM SERUM 4.7 MEQ/L (3.5-5.1)
[2020-08-14 16:26] LABS: ALBUMIN 2.5 GM/DL (3.2-5.2); CALCIUM LEVEL 8.1 MG/DL (8.8-10.2); CREATININE FOR GFR 2.75 MG/DL (0.70-1.30); GLOMERULAR FILTRATION RATE 23.9 (>42); PHOSPHORUS LEVEL 3.8 MG/DL (2.5-4.9)
[2020-08-18 02:50] LABS: ALBUMIN 2.5 GM/DL (3.2-5.2); CALCIUM LEVEL 8.3 MG/DL (8.8-10.2); CREATININE FOR GFR 2.61 MG/DL (0.70-1.30); GLOMERULAR FILTRATION RATE 25.4 (>42); PHOSPHORUS LEVEL 3.7 MG/DL (2.5-4.9); POTASSIUM SERUM 4.4 MEQ/L (3.5-5.1)
[2020-08-18 10:34] LABS: CREATININE FOR GFR 2.47 MG/DL (0.70-1.30); POTASSIUM SERUM 4.5 MEQ/L (3.5-5.1)
== END 2020-05-29 16:27 | disposition home health service (06) | DRG 291 ==
LOC: M ED 22:10 → M MSPAV 05-08 22:11
PROVIDERS: ADMIT Internal Medicine; ATTEND Internal Medicine
DX: I13.0 Hypertensive heart and chronic kidney disease with heart failure and stage 1 through stage 4 chronic kidney disease, or unspecified chronic kidney disease (principal); I50.33 Acute on chronic diastolic (congestive) heart failure; N17.9 Acute kidney failure, unspecified; N18.3 Chronic kidney disease, stage 3 (moderate); E11.22 Type 2 diabetes mellitus with diabetic chronic kidney disease; I48.91 Unspecified atrial fibrillation; E11.65 Type 2 diabetes mellitus with hyperglycemia; E78.00 Pure hypercholesterolemia, unspecified; D64.9 Anemia, unspecified; E03.9 Hypothyroidism, unspecified; R29.6 Repeated falls; Z85.819 Personal history of malignant neoplasm of unspecified site of lip, oral cavity, and pharynx; Z98.49 Cataract extraction status, unspecified eye; Z79.4 Long term (current) use of insulin; Z79.899 Other long term (current) drug therapy; Z88.8 Allergy status to other drugs, medicaments and biological substances; Z92.3 Personal history of irradiation

== ENCOUNTER 2020-08-14 14:12 | Inpatient (IN) | payer MEDICARE ==
[~2020-08-14] VITALS: Ht 188 cm; Wt 81.2 kg
[~2020-08-14 14:12] MED LIST changes: +CARV12.5 PO; +DIGO0.123 PO; +LEVO150T42 PO; +LOSA50TA88 PO
[2020-08-14] MEDS ORDERED: TAMS1CAP17 PO (14:42)
[2020-08-14] MEDS ORDERED: TORS10TA3 PO (14:42)
[2020-08-14] MEDS ORDERED: LEVE1INJ5 SC (14:42)
[2020-08-14 15:01] LABS: BASO % 0.3 % (0.0-1.0); EOS # 0.3 10^3/uL (0.0-0.5); EOS % 3.1 % (0.0-3.0); HEMATOCRIT 35.7 % (42.0-52.0); HEMOGLOBIN 11.9 g/dl (13.5-17.5); LYMPH # 0.6 10^3/uL (1.5-5.0); LYMPH % 6.5 % (24.0-44.0); MEAN CORPUSCULAR HGB CONC 33.3 g/dl (32.0-36.5); MEAN CORPUSCULAR VOLUME 89.9 fl (80.0-96.0); MONO # 0.5 10^3/uL (0.0-0.8); NEUTROPHILS # 7.4 10^3/uL (1.5-8.5); NEUTROPHILS % 83.8 % (36.0-66.0); PLATELET COUNT, AUTOMATED 303 10^3/uL (150-450); RED BLOOD COUNT 3.97 10^6/uL (4.30-6.10); WHITE BLOOD COUNT 8.9 10^3/uL (4.0-10.0)
[2020-08-14 15:38] LABS: APPEARANCE, URINE CLEAR (CLEAR); BACTERIA, URINE AUTO 1+ (NEGATIVE); BILIRUBIN, URINE AUTO NEGATIVE (NEGATIVE); BLOOD, URINE BLOOD 2+ (NEGATIVE); COLOR, URINE STRAW (YELLOW); GLUCOSE, URINE (UA) AUTO 3+ mg/dL (NEGATIVE); KETONE, URINE AUTO NEGATIVE (NEGATIVE); LEUKOCYTE ESTERASE, URINE AUTO NEGATIVE (NEGATIVE); NITRITE, URINE AUTO NEGATIVE (NEGATIVE); PROTEIN, URINE AUTO 2+ mg/dL (NEGATIVE); RBC, URINE AUTO 25 /HPF (0-3); SPECIFIC GRAVITY URINE AUTO 1.006 (1.002-1.035); SQUAMOUS EPITHELIAL CELL UR AU 0 /HPF (0-6); UROBILINOGEN, URINE AUTO 0.2 mg/dL (0.0-2.0); WBC, URINE AUTO 1 /HPF (0-3)
[2020-08-14 15:42] LABS: ALBUMIN 3.1 GM/DL (3.2-5.2); ALT/SGPT 15 U/L (12-78); BILIRUBIN,DIRECT < 0.1 MG/DL (0.0-0.2); BILIRUBIN,TOTAL 0.2 MG/DL (0.2-1.0); NT-PRO BNP 3809 PG/ML (<450); TOTAL PROTEIN 6.5 GM/DL (6.4-8.2)
[2020-08-14 17:12] LABS: CK-MB VALUE MASS 2.8 NG/ML (<3.6); CPK CREATINE PHOSPHOKINASE 60 U/L (39-308); MB/CK RELATIVE INDEX 4.67 (< OR =4); TROPONIN I < 0.02 NG/ML (< 0.10)
[2020-08-14] MEDS ORDERED: LABETALOL 100MG/20ML VIAL IV STA ×2 (17:19→19:56)
[2020-08-14 17:53] LABS: BLOOD UREA NITROGEN 62 MG/DL (7-18); CALCIUM LEVEL 8.8 MG/DL (8.8-10.2); CARBON DIOXIDE LEVEL 28 MEQ/L (21-32); CHLORIDE LEVEL 97 MEQ/L (98-107); CREATININE FOR GFR 2.38 MG/DL (0.70-1.30); DIGOXIN LEVEL 1.4 NG/ML (0.5-2.0); GLOMERULAR FILTRATION RATE 28.2 (>42); GLUCOSE, FASTING 350 MG/DL (70-100); POTASSIUM SERUM 4.5 MEQ/L (3.5-5.1); SODIUM LEVEL 133 MEQ/L (136-145)
--- NOTE | 2020-08-14 18:01 | REPVR ---
PROCEDURE INFORMATION: Exam: CT Head Without Contrast Exam date and time: 08/14/2020 5:38 PM Age: 80 years old Clinical indication: Other: Gait disturbance TECHNIQUE: Imaging protocol: Computed tomography of the head without contrast. Radiation optimization: All CT scans at this facility use at least one of these dose optimization techniques: automated exposure control; mA and/or kV adjustment per patient size (includes targeted exams where dose is matched to clinical indication); or iterative reconstruction. COMPARISON: No relevant prior studies available. FINDINGS: Brain: There is no evidence of intracranial bleed. There is patchy low density right and left external capsule region greater on the right consistent with chronic ischemic changes. Cerebral ventricles: Normal ventricles. Bones/joints: There is no evidence of fracture. Paranasal sinuses: Clear paranasal sinuses. Mastoid air cells: There is sclerosis of the mastoid air cells on the right consistent with previous changes mastoiditis. Mucosal thickening also noted throughout the right mastoid air cells. Vasculature: There is calcification of carotid siphon bilaterally consistent with atherosclerotic change. Soft tissues: Unremarkable. IMPRESSION: Chronic ischemic changes. Electronically signed by: Joaquin Bailey On 08/14/2020 18:00:40 PM
--- NOTE | 2020-08-14 18:29 | REP ---
INDICATION: hypertensive, peripheral edema. COMPARISON: 05/09/2020. FINDINGS: The cardiomediastinal silhouette is unchanged. There is cardiomegaly status quo. There is basilar fibrotic change status quo. No acute patchy parenchymal opacities or pleural effusions have developed. There is no sting significant change in the osseous structures. IMPRESSION: No significant change from the prior exam. No acute cardiopulmonary disease. Multiple healing left-sided rib fractures. <Electronically signed by Norbert Kennedy > 08/14/20 [id number]
[2020-08-14] MEDS ORDERED: CARV25TA PO (19:25)
[2020-08-14] MEDS ORDERED: FINA5TAB2 PO (19:25)
--- NOTE | 2020-08-14 20:57 | ECGEPIP ---
[facility] - ED Test Date: 2020-08-14 Pat Name: CESILIA SANDOVAL Department: Room: - Gender: Male Systems Developer: AMALIA : 1940 Requested By: FER Stevenson Order Number: [id number] Reading MD: Fer Judd Measurements Intervals [place] Rate: 73 P: 67 DC: 189 QRS: -52 QRSD: 115 T: 22 QT: 363 QTc: 401 Interpretive Statements SINUS RHYTHM MARKED LEFT AXIS DEVIATION MODERATE INTRAVENTRICULAR CONDUCTION DELAY Delayed anterior R wave progression Similar to tracing done 05-22-20 but without ectopy Electronically Signed on 08-14-2020 20:57:28 EST by Fer Judd
[2020-08-14] MEDS ORDERED: ACETAMINOPHEN TAB 650MG DOSE (2X325MG) PO PRN (21:00)
[2020-08-14] MEDS ORDERED: MOM 30ML SUSPENSION UDC PO PRN (21:00)
--- NOTE | 2020-08-14 21:13 | HPEPDOC ---
[facility] Medical History & Physical Date of Admission Aug 14, 2020 Date of Service: Aug 14, 2020 History and Physical CHIEF COMPLAINT: Lower extremity swelling HISTORY OF PRESENT ILLNESS: 80-year-old male past medical history of IDDM, uncontrolled hypertension, COPD, hypothyroidism, paroxysmal A. fib comes to the hospital for increasing lower extremity swelling resulting in gait instability and frequent falls at home. Tel ls me that over the past week he's noticed his legs have become increasingly more swollen and the swelling has resulted in him falling more frequently at home. He usually uses a walker around the house. He denies any shortness of breath. Typically sleeps on one or 2 pillows. In the ED patient was found to have hypertensive urgency BP initially on admission to 246/121 which improved to 151/87 after IV labetalol. Patient denies any headache or new blurry vision or palpitations or chest pain or shortness of breath. Patient unsure if he takes all his medications daily or if he misses some doses. Tells me he lives alone at home with his 6 year-old cat. As his lower extremity swelling has worsened he has been falling more frequently at home and having gait instability. He tells me he also frequently drops things now. PAST MEDICAL HISTORY: Uncontrolled hypertension CHFpEF: CKD IDDM MDD Hypothyroidism Paroxysmal A. 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 REVIEW OF SYSTEMS: Constitutional: No sweating Eyes: No eye pain or acute new blurred vision but has a history of chronic blurry vision HENT: No complaints of headache or sore throat Cadiovascular: No Chest pain or palpitations. But has had a history of palpitations in the past Pulm: No SOB or cough Gastrointestinal: No N/V, no abdominal pain. Is often constipated at home Genitourinary: No dysuria or hematuria Musculoskeletal: No joint pain. Chronic lower back pain Skin: No rash or jaundice Neurological: Falls at home, dropping objects, dysarthria speech 2/2 throat Ca HOME MEDICATIONS: Please see below. PHYSICAL EXAMINATION: Constitutional: Awake and alert, in no apparent distress ENT: Sclera are clear. Mucosa is moist. Respiratory: Lungs CTA bilaterally. No respiratory distress. No use of accessory muscles. Cardiovascular: RRR S1 and S2 are normal, no murmur Gastrointestinal: Abdomen is soft, non distended, non tender, BS present. Musculoskeletal: 2+ pitting edema lower extremities symmetrically. RUE 5/5, LUE 5/5, BLE 5/5 Neurologic: Moderate Dysarthria Mental Status: A&O x3, normal affect Skin: Warm, dry LABORATORY DATA: See below. IMAGING: Please see chart. Reviewed. Head CT shows chronic ischemic changes. MICROBIOLOGY: Please see below. ASSESSMENT/PLAN 80-year-old male past medical history of IDDM, uncontrolled hypertension, COPD, hypothyroidism, paroxysmal A. amaya comes to the hospital for increasing lower extremity swelling resulting in gait instability and frequent falls at home. Patient was found to have hypertensive urgency in the ED which improved with IV labetalol. Patient admitted to medical unit for further management. # HTN urgency: improved s/p labetalol IV in ED to 157/87. continue home dose losartan, carvedilol. Added chlorthalidone. Lasix IV bid for CHF. questionable compliance. IV hydralazine PRN SBP>180 # CHFpEF: some fluid overload 2+ edema lower extremities. Echo 04/2020 65% EF. On toresemide 10mg BID at home. Start on lasix 40mg bid IV. daily weight. Ins/outs. again compliance is questionable. # IDDM: continue home dose of levemir 30u qhs. ISS. Frequent Accu-Cheks. Hypoglycemic precautions. # CKD 4: worsened from May. Avoid nephrotoxins. Should follow with nephro OP. # Paoxysmal A Fib: currently NSR. Tele. On carvedilol. continue digoxin 0.125. followup on Dig level. # Hypothyroidism: Continue synthroid # MDD: continue amitriptyline qhs # BPH: finasteride, tamulosin # Hx constipation: bowel regiment # Frequent falls: using walker at home. Lives alone. PT/OT. Fall precautions. # DVT prophylaxis: Heparin A Yousef Hospitalist Vital Signs Vital Signs Date Time Temp Pulse Resp B/P (MAP) Pulse Ox O2 Delivery O2 Flow Rate FiO2 08/14/20 20:21 69 220/106 08/14/20 19:39 17 97 Room Air 08/14/20 14:31 98.3 Laboratory Data Labs 24H Laboratory Tests 2 08/14/20 14:54: Immature Granulocyte % (Auto) 0.3, Neutrophils (%) (Auto) 83.8H, Lymphocytes (%) (Auto) 6.5L, Monocytes (%) (Auto) 6.0H, Eosinophils (%) (Auto) 3.1H, Basophils (%) (Auto) 0.3, Neutrophils # (Auto) 7.4, Lymphocytes # (Auto) 0.6L, Monocytes # (Auto) 0.5, Eosinophils # (Auto) 0.3, Basophils # (Auto) 0.0, Nucleated Red Blood Cells % (auto) 0.0, Anion Gap 8, Glomerular Filtration Rate 28.2L, Calcium Level 8.8, Total Bilirubin 0.2, Direct Bilirubin < 0.1, Aspartate Amino Transf (AST/SGOT) 11, Alanine Aminotransferase (ALT/SGPT) 15, Alkaline Phosphatase 120H, Total Creatine Kinase 60, Creatine Kinase MB 2.8, Creatine Kinase MB Relative Index 4.67H, Troponin I < 0.02, BO-Ykc-S-Type Natriuretic Peptide 380 9H, Total Protein 6.5, Albumin 3.1L, Albumin/Globulin Ratio 0.9, Digoxin Level 1.4 08/14/20 14:55: POC Glucose (Misc Panel) 359H, POC Sodium (Misc Panel) 132L, POC Potassium (Misc Panel) 4.5, POC Chloride (Misc Panel) 95L, POC Total CO2 (Misc Panel) 29.0H, POC Blood Urea Nitrogen (Misc Panel 68H, POC Ionized Calcium (Misc Panel) 4.5, POC Creatinine (Misc Panel) 2.2H, POC Hematocrit (Misc Panel) 50.0 08/14/20 15:22: Urine Color STRAW, Urine Appearance CLEAR, Urine pH 6.0, Urine Specific [place] 1.006, Urine Protein 2+H, Urine Glucose (Auto)(UA) 3+H, Urine Ketones (Auto) NEGATIVE, Urine Blood 2+H, Urine Nitrite NEGATIVE, Urine Bilirubin NEGATIVE, Urine Urobilinogen 0.2, Urine Leukocyte Esterase (Auto) NEGATIVE, Urine WBC (Auto) 1, Urine RBC (Auto) 25H, Urine Hyaline Casts (Auto) 0, Urine Bacteria (Auto) 1+H, Urine Squamous Epithelial Cells 0, Urine Sperm (Auto) CBC/BMP Laboratory Tests 08/14/20 14:54 Home Medications Scheduled Amitriptyline HCl (Amitriptyline HCl) 50 Mg Tab, 50 MG PO QHS Carvedilol (Carvedilol) 25 Mg Tablet, 25 MG PO BID Digoxin (Digoxin) 125 Mcg Tablet, 125 MCG PO DAILY Finasteride (Finasteride) 5 Mg Tablet, 5 MG PO DAILY Insulin Detemir (Levemir Flextouch) 100 Unit/1 Ml Insuln.pen, 30 UNITS SC DAILY Levothyroxine Sodium (Levoxyl) 150 Mcg Tablet, 150 MCG PO DAILY Losartan Potassium (Losartan Potassium) 50 Mg Tablet, 50 MG PO DAILY Tamsulosin Hcl (Tamsulosin HCl) 0.4 Mg Capsule, 0.4 MG PO DAILY Torsemide (Torsemide) 10 Mg Tablet, 10 MG PO BID Allergies Coded Allergies: naloxone (Verified Adverse Reaction, Unknown, VOMITING, 05/28/20) pentazocine (Verified Adverse Reaction, Unknown, VOMITING, 05/28/20) A-FIB/CHADSVASC A-FIB History Current/History of A-Fib/PAF?: Yes Current PO Anticoag Therapy: No CHRISTOPHER MORELOS MD Aug 14, 2020 21:13
[2020-08-14] MEDS ORDERED: hydrALAZINE 20MG/ML 1ML VIAL (J0360 PER 20MG) IV PRN (21:15)
[2020-08-14] MEDS ORDERED: GLUCOSE 4GM CHEW TABLET PO PRN (21:30)
[2020-08-14] MEDS ORDERED: GLUCAGON INJ 1MG VIAL SC PRN (21:30)
[2020-08-14] MEDS ORDERED: DEXTROSE 50% 50 ML SYRINGE IV PRN (21:30)
[2020-08-14] MEDS: FUROSEMIDE 40MG/4ML VIAL (J1940) IV SCH (21:45)
[2020-08-14] MEDS: DOCUSATE SODIUM 100 MG CAP PO SCH (21:47)
[2020-08-14] MEDS: HEPARIN SOD (PORCINE) 5000UNITS/ML 1ML VIAL/SYRINGE SC SCH (21:47)
[2020-08-14] MEDS: CARVedilol 12.5 MG TAB PO SCH (21:47)
[2020-08-14] MEDS: HumaLOG INSULIN (NovoLOG) PER UNIT SC SCH (21:48)
[2020-08-14] MEDS: AMITRIPTYLINE 50 MG TAB PO SCH (23:59)
[2020-08-15] VITALS (8 sets, daily range): BP systolic 94–210; BP diastolic 53–100
[2020-08-15 06:01] LABS: HEMATOCRIT 34.7 % (42.0-52.0); HEMOGLOBIN 11.7 g/dl (13.5-17.5); MEAN CORPUSCULAR HEMOGLOBIN 29.8 pg (27.0-33.0); MEAN CORPUSCULAR HGB CONC 33.7 g/dl (32.0-36.5); MEAN CORPUSCULAR VOLUME 88.5 fl (80.0-96.0); PLATELET COUNT, AUTOMATED 302 10^3/uL (150-450); RED BLOOD COUNT 3.92 10^6/uL (4.30-6.10); WHITE BLOOD COUNT 6.5 10^3/uL (4.0-10.0)
[2020-08-15] MEDS: LEVOTHYROXINE 150MCG TABLET (0.15MG) PO SCH (06:23)
[2020-08-15 06:42] LABS: CALCIUM LEVEL 8.4 MG/DL (8.8-10.2); CREATININE FOR GFR 2.11 MG/DL (0.70-1.30); GLOMERULAR FILTRATION RATE 32.4 (>42); MAGNESIUM LEVEL 2.2 MG/DL (1.8-2.4); POTASSIUM SERUM 3.9 MEQ/L (3.5-5.1)
[2020-08-15] MEDS: LOSARTAN 50MG TABLET PO SCH (08:19)
[2020-08-15] MEDS: HEPARIN SOD (PORCINE) 5000UNITS/ML 1ML VIAL/SYRINGE SC SCH (08:30)
[2020-08-15] MEDS: FUROSEMIDE 40MG/4ML VIAL (J1940) IV SCH ×2 (08:30→16:00)
[2020-08-15] MEDS: FINASTERIDE 5 MG TAB PO SCH (08:31)
[2020-08-15] MEDS: CARVedilol 12.5 MG TAB PO SCH ×2 (08:31→21:47)
[2020-08-15] MEDS: HumaLOG INSULIN (NovoLOG) PER UNIT SC SCH ×4 (08:31→21:42)
[2020-08-15] MEDS: TAMSULOSIN 0.4 MG CAP PO SCH (08:31)
[2020-08-15] MEDS: DOCUSATE SODIUM 100 MG CAP PO SCH ×2 (08:31→21:44)
[2020-08-15] MEDS ORDERED: DIGOXIN 0.125 MG TAB PO SCH (09:00)
[2020-08-15] MEDS ORDERED: CHLORTHALIDONE 12.5MG PER 1/2 TABLET PO SCH (09:00)
--- NOTE | 2020-08-15 12:39 | IPNPDOC ---
Text Note Date of Service The patient was seen on 08/15/20. NOTE Subjective: No any acute events overnight, blood pressure was stabilized. Objective: GENERAL APPEARANCE: NAD HEENT: no scleral icterus, no JVD, EOMI CARDIOVASCULAR: Irregularly irregular, plus JVD LUNGS: CTA ABDOMEN: soft & not tender w palpitation MUSCULOSKELETAL: no cyanosis, no swelling INTEGUMENT: no generalized palor NEUROLOGICAL: cranial nerve function from 2-12 intact intact, follows commands, speech not dysarthric Patient 80 years old male with past history of diabetes, hypertension, COPD, hypothyroidism, atrial fibrillation presented hospital with deconditioning and hypertensive urgency. Hypertensive urgency Stabilized Continue home cardioprotective medications Acute diastolic CHF BNP significantly elevated, plus JVD Cardiac diet I's and O's Continue Lasix IV Echo Diabetes type 2 Insulin sliding scale Will check HbA1c BRANDY Acute on chronic Continue to monitor Atrial fibrillation Patient was not on the anticoagulation Heart rate under control I started apixaban twice a day Hypothyroidism Continue levothyroxine We'll check TSH Depression Continue amitriptyline. Amitriptyline should be changed for SSRI. Defer change to PCP BPH Continue home meds Frequent fall/deconditioning PT/OT VS,Fishbone, I+O VS, Fishbone, I+O Laboratory Tests 08/14/20 14:54 08/15/20 05:36 Vital Signs Date Time Temp Pulse Resp B/P (MAP) Pulse Ox O2 Delivery O2 Flow Rate FiO2 08/15/20 08:31 76 114/61 08/15/20 07:57 97.5 20 94 Room Air I&O- Last 24 Hours up to 6 AM 08/15/20 06:00 Intake Total 60 ml Output Total 2700 ml Balance -2640 ml JOSE WALDRON DO Aug 15, 2020 12:39
[2020-08-15 13:01] LABS: THYROID STIMULATING HORMONE 34.9 uIU/ML (0.358-3.740)
[2020-08-15 13:27] LABS: HEMOGLOBIN A1c 10.6 %
[2020-08-15] MEDS ORDERED: ELIQ5TAB PO (14:00)
[2020-08-15 17:03] LABS: THYROXINE (T4) 7.2 UG/DL (4.5-12.0)
[2020-08-15 17:14] LABS: CORTISOL AM 4.6 UG/DL (4.3-22.4)
[2020-08-15] MEDS ORDERED: LEVEMIR (INSULIN DETEMIR) 1 UNITS/0.01ML SC SCH ×2 (21:00)
[2020-08-15] MEDS: AMITRIPTYLINE 50 MG TAB PO SCH (21:44)
[2020-08-15] MEDS: APIXABAN 5 MG TAB (ELIQUIS) PO SCH (21:44)
[2020-08-16] VITALS (8 sets, daily range): BP systolic 102–240; BP diastolic 56–102
[2020-08-16] MEDS: LEVOTHYROXINE 150MCG TABLET (0.15MG) PO SCH (06:44)
[2020-08-16] MEDS: HumaLOG INSULIN (NovoLOG) PER UNIT SC SCH ×4 (07:30→20:57)
[2020-08-16] MEDS ORDERED: LABETALOL 100MG/20ML VIAL IV STA (07:51)
[2020-08-16] MEDS ORDERED: LABETALOL 100MG/20ML VIAL IV PRN (08:00)
[2020-08-16 08:28] LABS: BASO % 0.3 % (0.0-1.0); EOS # 0.3 10^3/uL (0.0-0.5); EOS % 4.2 % (0.0-3.0); HEMATOCRIT 39.3 % (42.0-52.0); LYMPH # 0.6 10^3/uL (1.5-5.0); LYMPH % 8.2 % (24.0-44.0); MEAN CORPUSCULAR HEMOGLOBIN 29.2 pg (27.0-33.0); MEAN CORPUSCULAR HGB CONC 33.1 g/dl (32.0-36.5); MEAN CORPUSCULAR VOLUME 88.3 fl (80.0-96.0); MONO # 0.5 10^3/uL (0.0-0.8); PLATELET COUNT, AUTOMATED 333 10^3/uL (150-450); RED BLOOD COUNT 4.45 10^6/uL (4.30-6.10); WHITE BLOOD COUNT 7.4 10^3/uL (4.0-10.0)
[2020-08-16] MEDS: DOCUSATE SODIUM 100 MG CAP PO SCH ×2 (08:40→21:08)
[2020-08-16] MEDS: APIXABAN 5 MG TAB (ELIQUIS) PO SCH ×2 (08:40→21:08)
[2020-08-16] MEDS: FINASTERIDE 5 MG TAB PO SCH (08:40)
[2020-08-16] MEDS: TAMSULOSIN 0.4 MG CAP PO SCH (08:40)
[2020-08-16] MEDS ORDERED: hydrALAZINE 20MG/ML 1ML VIAL (J0360 PER 20MG) IV PRN (08:45)
[2020-08-16 08:56] LABS: CALCIUM LEVEL 8.7 MG/DL (8.8-10.2); CREATININE FOR GFR 2.46 MG/DL (0.70-1.30); GLOMERULAR FILTRATION RATE 27.2 (>42); MAGNESIUM LEVEL 2.3 MG/DL (1.8-2.4); POTASSIUM SERUM 3.5 MEQ/L (3.5-5.1)
[2020-08-16] MEDS: LOSARTAN 50MG TABLET PO SCH (09:00)
[2020-08-16] MEDS ORDERED: amLODIPine 10 MG TAB PO SCH ×2 (09:00→21:00)
[2020-08-16] MEDS: TORSEMIDE 20 MG TAB PO SCH (09:00)
[2020-08-16] MEDS ORDERED: LEVEMIR (INSULIN DETEMIR) 1 UNITS/0.01ML SC SCH ×2 (09:00→21:00)
--- NOTE | 2020-08-16 13:47 | ECHO ---
DATE OF PROCEDURE: 08/15/2020 Age: 80 Gender: Male Height: 188 cm Weight: 82 kg REFERRING PHYSICIAN: Dr. Ansari and INDICATION: Congestive heart failure. MEASUREMENTS: IVS 1.5 LV 3.9 LVPW 1.2 LA 3.6 Aorta 3.8 IVC 0.7 Mitral E wave velocity 68, A wave 109 E prime septal 5.1 E prime lateral 6.0 FINDINGS: The study is of difficult technical quality. It was only a supine exam with difficulty positioning the patient. Underlying sinus rhythm. Left ventricle is normal size. There is moderate left ventricular hypertrophy. Overall there appears to be hyperdynamic LV systolic function with estimated ejection fraction approximately 70%. Based on limited views, I cannot rule out subtle wall motion abnormalities but it seems unlikely. Right ventricle was poorly visualized but does not appear grossly enlarged. Both atria appear normal. Aortic valve is calcified but it has three cusps and grossly preserved mobility. Mitral valve has degenerative abnormalities with very prominent mitral annular calcifications. Mobility of leaflets is preserved. Tricuspid valve is normal. Pulmonic valve was not well seen. No pericardial effusion is noted. Inferior vena cava is relatively small caliber and collapses with inspiration indicative of normal central venous pressure (CVP). Aortic root is normal. Aortic arch and abdominal aorta were not well seen. Doppler interrogation reveals no aortic insufficiency and trivial stenosis with mean gradient 9 mmHg. Mitral and tricuspid valves are functionally competent. Mitral inflow pattern and tissue Doppler imaging of mitral annulus revealed grade 1 diastolic dysfunction. CONCLUSIONS: 1. Study is of fair technical quality with very limited visualization. Underlying sinus rhythm. 2. Normal LV size with moderate LVH and hyperdynamic LV systolic function, (LVEF 70%) and grade 1 diastolic dysfunction. 3. Aortic sclerosis resulting in trivial stenosis and no insufficiency. 4. Competent mitral and tricuspid valves. 5. Normal central venous pressure. 6. Unable to estimate pulmonary artery pressure. 7. Borderline dilated aortic root (3.8 cm). 8. Study is not overly supportive of diagnosis of congestive heart failure but does indicate hypertensive heart disease. Edited: [facility] 08/16/2020 1424 MTDD
--- NOTE | 2020-08-16 13:51 | IPNPDOC ---
Text Note Date of Service The patient was seen on 08/16/20. NOTE Subjective: Patient developed hypertensive urgency in the morning. Complains of weakness. Overnight one episode of hypoglycemia Objective: GENERAL APPEARANCE: NAD HEENT: no scleral icterus, no JVD, EOMI CARDIOVASCULAR: Irregularly irregular, plus JVD LUNGS: CTA ABDOMEN: soft & not tender w palpitation MUSCULOSKELETAL: no cyanosis, no swelling INTEGUMENT: no generalized palor NEUROLOGICAL: cranial nerve function from 2-12 intact intact, follows commands, speech not dysarthric Patient 80 years old male with past history of diabetes, hypertension, COPD, hypothyroidism, atrial fibrillation presented to the hospital with deconditioning and hypertensive urgency. Hypertensive urgency/hypertension Stabilized Continue home cardioprotective medications Hydralazine IV when necessary with parameters Acute diastolic CHF BNP significantly elevated, plus JVD Cardiac diet I's and O's Continue torsemide Await Echo Diabetes type 2 Poorly controlled diabetes most likely secondary to noncompliance Insulin sliding scale Detemir evening dose reduced HbA1c 10 BRANDY Acute on chronic Continue to monitor Atrial fibrillation Patient was not on the anticoagulation Heart rate under control I started apixaban twice a day Hypothyroidism Continue levothyroxine TSH is 34. Most likely patient noncompliant to levothyroxine Cortisol within normal limit Depression Continue amitriptyline. Amitriptyline should be changed for SSRI. Defer change to PCP BPH Continue home meds Frequent fall/deconditioning PT/OT VS,Fishbone, I+O VS, Fishbone, I+O Laboratory Tests 08/16/20 08:14 Vital Signs Date Time Temp Pulse Resp B/P (MAP) Pulse Ox O2 Delivery O2 Flow Rate FiO2 08/16/20 12:00 96.2 69 18 140/90 (107) 99 Room Air I&O- Last 24 Hours up to 6 AM 08/16/20 06:00 Intake Total 600 ml Output Total 650 ml Balance -50 ml JOSE WALDRON DO Aug 16, 2020 13:51
[2020-08-16] MEDS: AMITRIPTYLINE 50 MG TAB PO SCH (21:08)
[2020-08-17] VITALS: BP 136/64
[2020-08-17 04:00] VITALS: BP 156/76
[2020-08-17] MEDS: LEVOTHYROXINE 150MCG TABLET (0.15MG) PO SCH (05:24)
[2020-08-17 05:36] LABS: BASO % 0.3 % (0.0-1.0); EOS # 0.3 10^3/uL (0.0-0.5); EOS % 4.4 % (0.0-3.0); HEMATOCRIT 33.9 % (42.0-52.0); LYMPH # 0.9 10^3/uL (1.5-5.0); LYMPH % 11.1 % (24.0-44.0); MEAN CORPUSCULAR HEMOGLOBIN 28.6 pg (27.0-33.0); MEAN CORPUSCULAR HGB CONC 31.9 g/dl (32.0-36.5); MEAN CORPUSCULAR VOLUME 89.9 fl (80.0-96.0); MONO # 0.6 10^3/uL (0.0-0.8); MONO % 7.2 % (0.0-5.0); NEUTROPHILS # 5.9 10^3/uL (1.5-8.5); NEUTROPHILS % 76.6 % (36.0-66.0); PLATELET COUNT, AUTOMATED 314 10^3/uL (150-450); RED BLOOD COUNT 3.77 10^6/uL (4.30-6.10); WHITE BLOOD COUNT 7.7 10^3/uL (4.0-10.0)
[2020-08-17 05:42] LABS: HEMOGLOBIN 10.8 g/dl (13.5-17.5)
[2020-08-17 06:11] LABS: ALBUMIN 2.7 GM/DL (3.2-5.2); BILIRUBIN,TOTAL 0.2 MG/DL (0.2-1.0); CALCIUM LEVEL 8.2 MG/DL (8.8-10.2); CREATININE FOR GFR 2.55 MG/DL (0.70-1.30); GLOMERULAR FILTRATION RATE 26.1 (>42); MAGNESIUM LEVEL 2.3 MG/DL (1.8-2.4); POTASSIUM SERUM 4.1 MEQ/L (3.5-5.1); TOTAL PROTEIN 5.5 GM/DL (6.4-8.2)
[2020-08-17] MEDS: HumaLOG INSULIN (NovoLOG) PER UNIT SC SCH (07:30)
[2020-08-17 08:00] VITALS: BP 136/69
--- NOTE | 2020-08-17 08:09 | ECGEPIP ---
[facility] Test Date: 2020-08-16 Pat Name: CESILIA SANDOVAL Department: Room: [place] [address] Gender: Male Clinical Social Work Aide: : 1940 Requested By: JOSE WALDRON Order Number: [id number] Reading MD: Fer Judd Measurements Intervals [place] Rate: 51 P: 81 [place]: 221 QRS: -57 QRSD: 113 T: -25 QT: 473 QTc: 438 Interpretive Statements SINUS BRADYCARDIA WITH FIRST DEGREE AV BLOCK INFERIOR MYOCARDIAL INFARCTION, PROBABLY OLD Low QRS complex voltage in the limb leads Delayed anterior R wave progression Similar to tracing done 08-14-20 but with decreased rate Electronically Signed on 08-17-2020 8:09:30 EST by Fer Judd
[2020-08-17] MEDS ORDERED: LEVEMIR (INSULIN DETEMIR) 1 UNITS/0.01ML SC SCH (09:00)
[2020-08-17] MEDS ORDERED: CARVedilol 12.5 MG TAB PO SCH (09:00)
[2020-08-17 09:56] VITALS: BP 139/68
[2020-08-17] MEDS: DOCUSATE SODIUM 100 MG CAP PO SCH (09:56)
[2020-08-17] MEDS: TAMSULOSIN 0.4 MG CAP PO SCH (09:56)
[2020-08-17] MEDS: APIXABAN 5 MG TAB (ELIQUIS) PO SCH (09:56)
[2020-08-17] MEDS: LOSARTAN 50MG TABLET PO SCH (09:56)
[2020-08-17] MEDS: TORSEMIDE 20 MG TAB PO SCH (09:57)
[2020-08-17] MEDS: FINASTERIDE 5 MG TAB PO SCH (09:58)
[2020-08-17] MEDS ORDERED: AMLO1TAB25 PO (11:50)
[2020-08-17] MEDS ORDERED: CARV12.5 PO (11:50)
[2020-08-17 12:00] VITALS: BP 120/64
--- NOTE | 2020-08-17 17:32 | DS.PDOC ---
Discharge Summary General Date of Admission Aug 14, 2020 at 20:54 Date of Discharge 08/17/20 Discharge Summary PROCEDURES PERFORMED DURING STAY: [None]. ADMITTING DIAGNOSES: Hypertensive urgency/hypertension Acute diastolic CHF Diabetes type 2 BRANDY Atrial fibrillation Hypothyroidism Depression BPH Frequent fall/deconditioning DISCHARGE DIAGNOSES: Hypertensive urgency/hypertension Acute diastolic CHF Diabetes type 2 BRANDY Atrial fibrillation Hypothyroidism Depression BPH Frequent fall/deconditioning COMPLICATIONS/CHIEF COMPLAINT: Hypertensive Urgency. HISTORY OF PRESENT ILLNESS:Patient 80 years old male with past history of diabetes, hypertension, COPD, hypothyroidism, atrial fibrillation presented to the hospital with deconditioning and hypertensive urgency. HOSPITAL COURSE: During hospital stay the following issues addressed Hypertensive urgency/hypertension Stabilized Continue home cardioprotective medications Hydralazine IV when necessary with parameters Acute diastolic CHF BNP significantly elevated, plus JVD Cardiac diet I's and O's Continue torsemide Diabetes type 2 Poorly controlled diabetes most likely secondary to noncompliance Insulin sliding scale Detemir evening dose reduced HbA1c 10 BRANDY Acute on chronic Continue to monitor Atrial fibrillation Patient was not on the anticoagulation Heart rate under control I started apixaban twice a day Hypothyroidism Continue levothyroxine TSH is 34. Most likely patient noncompliant to levothyroxine Cortisol within normal limit Depression Continue amitriptyline. Amitriptyline should be changed for SSRI. Defer change to PCP BPH Continue home meds Frequent fall/deconditioning [facility] NAME: CESILIA SANDOVAL : 1940 MEDICAL REC #: [id number] ROOM: [facility] ACCOUNT: [id number] ORDERING DOCTOR: JOSE WALDRON DO PATIENT STATUS: ADM IN DICTATING DOCTOR: Yojana Khan MD REPORT #: [id number] cc: [~ rep ct ivnm] ECHOCARDIOGRAM-DOPPLER REPORT Printed: [~ rep prt dt last] [~ rep prt tm last] Page 2 of [address] [id number] ECHOCARDIOGRAM-DOPPLER REPORT ECHOCARDIOGRAM-DOPPLER REPORT Printed: [~ rep prt dt last] [~ rep prt tm last] Page 1 of 1 REFERRING PHYSICIAN: Dr. Ansari and INDICATION: Congestive heart failure. MEASUREMENTS: IVS 1.5 LV 3.9 LVPW 1.2 LA 3.6 Aorta 3.8 IVC 0.7 Mitral E wave velocity 68, A wave 109 E prime septal 5.1 E prime lateral 6.0 FINDINGS: The study is of difficult technical quality. It was only a supine exam with difficulty positioning the patient. Underlying sinus rhythm. Left ventricle is normal size. There is moderate left ventricular hypertrophy. Overall there appears to be hyperdynamic LV systolic function with estimated ejection fraction approximately 70%. Based on limited views, I cannot rule out subtle wall motion abnormalities but it seems unlikely. Right ventricle was poorly visualized but does not appear grossly enlarged. Both atria appear normal. Aortic valve is calcified but it has three cusps and grossly preserved mobility. Mitral valve has degenerative abnormalities with very prominent mitral annular calcifications. Mobility of leaflets is preserved. Tricuspid valve is normal. Pulmonic valve was not well seen. No pericardial effusion is noted. Inferior vena cava is relatively small caliber and collapses with inspiration indicative of normal central venous pressure (CVP). Aortic root is normal. Aortic arch and abdominal aorta were not well seen. Doppler interrogation reveals no aortic insufficiency and trivial stenosis with mean gradient 9 mmHg. Mitral and tricuspid valves are functionally competent. Mitral inflow pattern and tissue Doppler imaging of mitral annulus revealed grade 1 diastolic dysfunction. CONCLUSIONS: 1. Study is of fair technical quality with very limited visualization. Underlying sinus rhythm. 2. Normal LV size with moderate LVH and hyperdynamic LV systolic function, (LVEF 70%) and grade 1 diastolic dysfunction. 3. Aortic sclerosis resulting in trivial stenosis and no insufficiency. 4. Competent mitral and tricuspid valves. 5. Normal central venous pressure. 6. Unable to estimate pulmonary artery pressure. 7. Borderline dilated aortic root (3.8 cm). 8. Study is not overly supportive of diagnosis of congestive heart failure butdoes indicate hypertensive heart disease. Edited: za 08/16/2020 1424 DD: Yojana Khan MD 08/15/20 2345 DT: BROOK 08/16/20 1112 DS: HUGO 08/17/206 <Electronically signed by Yojana Khan MD> 08/17/20 003 DS2: [~ rep ct labl] DISCHARGE MEDICATIONS: Please see below. ALLERGIES: Please see below. PHYSICAL EXAMINATION ON DISCHARGE: GENERAL APPEARANCE: NAD HEENT: no scleral icterus, no JVD, EOMI CARDIOVASCULAR: Irregularly irregular, plus JVD LUNGS: CTA ABDOMEN: soft & not tender w palpitation MUSCULOSKELETAL: no cyanosis, no swelling INTEGUMENT: no generalized palor NEUROLOGICAL: cranial nerve function from 2-12 intact intact, follows commands, speech not dysarthric PROGNOSIS: fair ACTIVITY: [As tolerated]. DIET: cardiac DISPOSITION: Home, Self-Care. ITEMS TO FOLLOWUP ON ON OUTPATIENT: PCP DISCHARGE CONDITION: [Stable]. TIME SPENT ON DISCHARGE: Greater than 40 minutes. Vital Signs/I&Os Vital Signs Date Time Temp Pulse Resp B/P (MAP) Pulse Ox O2 Delivery O2 Flow Rate FiO2 08/17/20 12:00 97.6 56 20 120/64 (82) 97 Room Air I&O- Last 24 Hours up to 6 AM 08/17/20 06:00 Intake Total 480 ml Output Total 1050 ml Balance -570 ml Laboratory Data Labs 24H Laboratory Tests 2 08/16/20 18:24: 08/16/20 20:54: Bedside Glucose (Misc Panel) 198H 08/17/20 05:20: Immature Granulocyte % (Auto) 0.4, Neutrophils (%) (Auto) 76.6H, Lymphocytes (%) (Auto) 11.1L, Monocytes (%) (Auto) 7.2H, Eosinophils (%) (Auto) 4.4H, Basophils (%) (Auto) 0.3, Neutrophils # (Auto) 5.9, Lymphocytes # (Auto) 0.9L, Monocytes # (Auto) 0.6, Eosinophils # (Auto) 0.3, Basophils # (Auto) 0.0, Nucleated Red Blood Cells % (auto) 0.0, Anion Gap 4L, Glomerular Filtration Rate 26.1L, Calcium Level 8.2L, Magnesium Level 2.3, Total Bilirubin 0.2, Aspartate Amino Transf (AST/SGOT) 15, Alanine Aminotransferase (ALT/SGPT) 12, Alkaline Phosphatase 86, Total Protein 5.5L, Albumin 2.7L, Albumin/Globulin Ratio 1.0 08/17/20 07:48: Bedside Glucose (Misc Panel) 92 08/17/20 11:15: Bedside Glucose (Misc Panel) 208H CBC/BMP Laboratory Tests 08/17/20 05:20 FSBS Laboratory Tests Test 08/16/20 20:54 08/17/20 07:48 08/17/20 11:15 Range/Units Bedside Glucose (Misc Panel) 198 92 208 83-110 MG/DL Discharge Medications Scheduled Amitriptyline HCl (Amitriptyline HCl) 50 Mg Tab, 50 MG PO QHS, (Reported) Amlodipine Besylate (Amlodipine Besylate) 10 Mg Tablet, 10 MG PO QHS Apixaban (Eliquis) 5 Mg Tablet, 5 MG PO BID Carvedilol (Carvedilol) 12.5 Mg Tablet, 25 MG PO DAILY Digoxin (Digoxin) 125 Mcg Tablet, 125 MCG PO DAILY, (Reported) Finasteride (Finasteride) 5 Mg Tablet, 5 MG PO DAILY, (Reported) Insulin Detemir (Levemir Flextouch) 100 Unit/1 Ml Insuln.pen, 30 UNITS SC DAILY, (Reported) Levothyroxine Sodium (Levoxyl) 150 Mcg Tablet, 150 MCG PO DAILY, (Reported) Losartan Potassium (Losartan Potassium) 50 Mg Tablet, 50 MG PO DAILY, (Reported) Tamsulosin Hcl (Tamsulosin HCl) 0.4 Mg Capsule, 0.4 MG PO DAILY, (Reported) Torsemide (Torsemide) 10 Mg Tablet, 10 MG PO BID, (Reported) Allergies Coded Allergies: naloxone (Verified Adverse Reaction, Unknown, VOMITING, 05/28/20) pentazocine (Verified Adverse Reaction, Unknown, VOMITING, 05/28/20) JOSE WALDRON DO Aug 17, 2020 17:32
== END 2020-08-17 13:25 | disposition home health service (06) | DRG 291 ==
LOC: M ED 14:12 → EDBD 14:12 → M ED INP 20:54 → ENRESERV 21:42 → M PCU 22:54
PROVIDERS: ADMIT Family Medicine; ATTEND Internal Medicine
DX: I13.0 Hypertensive heart and chronic kidney disease with heart failure and stage 1 through stage 4 chronic kidney disease, or unspecified chronic kidney disease (principal); I50.33 Acute on chronic diastolic (congestive) heart failure; N18.4 Chronic kidney disease, stage 4 (severe); E11.22 Type 2 diabetes mellitus with diabetic chronic kidney disease; J44.9 Chronic obstructive pulmonary disease, unspecified; E03.9 Hypothyroidism, unspecified; I48.0 Paroxysmal atrial fibrillation; R26.89 Other abnormalities of gait and mobility; R29.6 Repeated falls; F32.9 Major depressive disorder, single episode, unspecified; N40.0 Benign prostatic hyperplasia without lower urinary tract symptoms; Z98.41 Cataract extraction status, right eye; Z98.42 Cataract extraction status, left eye; Z85.818 Personal history of malignant neoplasm of other sites of lip, oral cavity, and pharynx; Z92.21 Personal history of antineoplastic chemotherapy; Z92.3 Personal history of irradiation; K59.00 Constipation, unspecified; Z79.4 Long term (current) use of insulin; Z79.899 Other long term (current) drug therapy; Z88.8 Allergy status to other drugs, medicaments and biological substances; I16.0 Hypertensive urgency; E11.65 Type 2 diabetes mellitus with hyperglycemia

== ENCOUNTER → 2021-04-16 | Outpatient (CLI) | payer MEDICARE ==
[~2021-04-16] MED LIST changes: -AMIT10TA PO; +AMIT10TA7 PO; +AMLO1TAB25 PO; +ELIQ5TAB PO; +FINA5TAB2 PO; +LEVE1INJ5 SC; +TAMS1CAP17 PO; +TORS10TA3 PO
[2021-04-16 11:53] LABS: HEMOGLOBIN 11.7 g/dl (13.5-17.5); MEAN CORPUSCULAR HEMOGLOBIN 28.3 pg (27.0-33.0); MEAN CORPUSCULAR HGB CONC 32.5 g/dl (32.0-36.5); MEAN CORPUSCULAR VOLUME 87.2 fl (80.0-96.0); PLATELET COUNT, AUTOMATED 380 10^3/uL (150-450); RED BLOOD COUNT 4.13 10^6/uL (4.30-6.10); WHITE BLOOD COUNT 7.8 10^3/uL (4.0-10.0)
[2021-04-16 12:24] LABS: HEMOGLOBIN A1c 11.8 %
[2021-04-16 12:32] LABS: ALBUMIN 3.5 GM/DL (3.2-5.2); BILIRUBIN,TOTAL 0.2 MG/DL (0.2-1.0); CALCIUM LEVEL 9.5 MG/DL (8.8-10.2); CHOLESTEROL RISK RATIO 4.117 (<5); CREATININE FOR GFR 3.05 MG/DL (0.70-1.30); GLOMERULAR FILTRATION RATE 21.2 (>42); POTASSIUM SERUM 4.3 MEQ/L (3.5-5.1); THYROID STIMULATING HORMONE 41.2 uIU/ML (0.358-3.740); TOTAL 25(OH) VITAMIN D 23.6 NG/ML (30.0-100.0); TOTAL PROTEIN 7.2 GM/DL (6.4-8.2)
== END ==
LOC: M LAB 10:00
PROVIDERS: ATTEND Family Medicine
DX: D64.9 Anemia, unspecified (principal); R53.83 Other fatigue; E03.9 Hypothyroidism, unspecified; Z12.5 Encounter for screening for malignant neoplasm of prostate
CPT/HCPCS: 36415; 80053; 80061; 82306; 83036; 84403; 84443; 85027; G0103

== ENCOUNTER → 2021-05-01 | Outpatient (REF) | payer MEDICARE | LOC: M LAB REF 17:31 | PROVIDERS: ATTEND Nurse Practitioner Family | DX: E83.42 Hypomagnesemia (principal) ==

== ENCOUNTER → 2021-11-12 | Outpatient (CLI) | payer MEDICARE ==
[~2021-11-12] MED LIST changes: +LOSA50TA28 PO; -LOSA50TA88 PO
[2021-11-12 14:23] LABS: HEMOGLOBIN 11.5 g/dl (13.5-17.5); MEAN CORPUSCULAR HEMOGLOBIN 28.8 pg (27.0-33.0); MEAN CORPUSCULAR HGB CONC 32.9 g/dl (32.0-36.5); MEAN CORPUSCULAR VOLUME 87.7 fl (80.0-96.0); PLATELET COUNT, AUTOMATED 310 10^3/uL (150-450); RED BLOOD COUNT 3.99 10^6/uL (4.30-6.10); WHITE BLOOD COUNT 7.8 10^3/uL (4.0-10.0)
[2021-11-12 14:58] LABS: ALBUMIN 3.3 GM/DL (3.2-5.2); BILIRUBIN,TOTAL 0.3 MG/DL (0.2-1.0); CHOLESTEROL RISK RATIO 3.723 (<5); CREATININE FOR GFR 3.53 MG/DL (0.70-1.30); GLOMERULAR FILTRATION RATE 17.9 (>35); POTASSIUM SERUM 4.3 MEQ/L (3.5-5.1); THYROID STIMULATING HORMONE 7.13 uIU/ML (0.358-3.740); TOTAL PROTEIN 7.2 GM/DL (6.4-8.2)
[2021-11-12 15:18] LABS: HEMOGLOBIN A1c 13.8 %
== END ==
LOC: M LAB 14:01
PROVIDERS: ATTEND Family Medicine
DX: R53.83 Other fatigue (principal); I10 Essential (primary) hypertension; Z12.5 Encounter for screening for malignant neoplasm of prostate
CPT/HCPCS: 36415; 80053; 80061; 83036; 84443; 85027; G0103

== ENCOUNTER 2022-06-29 12:00 | Inpatient (IN) | payer MEDICARE ==
[~2022-06-29] VITALS: Ht 190.5 cm; Wt 73.9 kg
[2022-06-29] MEDS ORDERED: NS 1,000 ML IV ONE (12:35)
[2022-06-29 13:11] LABS: BASO % 0.1 % (0.0-1.0); LYMPH # 0.5 10^3/uL (1.5-5.0); LYMPH % 3.4 % (24.0-44.0); MEAN CORPUSCULAR HGB CONC 32.3 g/dl (32.0-36.5); MEAN CORPUSCULAR VOLUME 93.1 fl (80.0-96.0); MONO # 0.9 10^3/uL (0.0-0.8); NEUTROPHILS # 13.6 10^3/uL (1.5-8.5); NEUTROPHILS % 89.6 % (36.0-66.0); PLATELET COUNT, AUTOMATED 366 10^3/uL (150-450); RED BLOOD COUNT 3.33 10^6/uL (4.30-6.10); WHITE BLOOD COUNT 15.2 10^3/uL (4.0-10.0)
[2022-06-29 13:40] LABS: RSV AMPLIFICATION NEGATIVE (NEGATIVE)
[2022-06-29 13:56] LABS: ACETAMINOPHEN LEVEL < 2.0 UG/ML (10.0-30.0); ALT/SGPT 374 U/L (12-78); BILIRUBIN,DIRECT 0.2 MG/DL (0.0-0.2); BILIRUBIN,TOTAL 0.5 MG/DL (0.2-1.0); BLOOD UREA NITROGEN 120 MG/DL (7-18); CALCIUM LEVEL 7.8 MG/DL (8.8-10.2); CARBON DIOXIDE LEVEL 18 MEQ/L (21-32); CHLORIDE LEVEL 98 MEQ/L (98-107); CREATININE FOR GFR 4.55 MG/DL (0.70-1.30); ETHYL ALCOHOL (ETHANOL) < 0.003 % (0.000-0.010); GLOMERULAR FILTRATION RATE 13.3 (>35); GLUCOSE, FASTING 485 MG/DL (70-100); POTASSIUM SERUM 5.4 MEQ/L (3.5-5.1); SODIUM LEVEL 133 MEQ/L (136-145); TOTAL PROTEIN 6.2 GM/DL (6.4-8.2)
[2022-06-29] MEDS ORDERED: HumuLIN R (REGULAR) INSULIN (NovoLIN R) **100U/ML** PER UNIT IV ONE ×2 (14:00→15:45)
[2022-06-29] MEDS ORDERED: NOVO1INJ4 SC (14:27)
[2022-06-29] MEDS ORDERED: AMLO1TAB24 PO (14:27)
[2022-06-29] MEDS ORDERED: CALC1CAP31 PO (14:27)
[2022-06-29] MEDS ORDERED: TORS20TA2 PO (14:27)
[2022-06-29] MEDS ORDERED: CARV25TA PO (14:27)
[2022-06-29] MEDS ORDERED: HOME MED LIST COMPLETE! XX SCH (14:30)
[2022-06-29] MEDS ORDERED: LEVO175T2 PO (14:35)
[2022-06-29 14:46] LABS: AMPHETAMINES LEVEL URINE NEGATIVE (NEGATIVE); BARBITURATES URINE NEGATIVE (NEGATIVE); BENZODIAZEPINES URINE NEGATIVE (NEGATIVE); CANNABINOIDS URINE NEGATIVE (NEGATIVE); COCAINE METABOLITE URINE NEGATIVE (NEGATIVE); METHADONE URINE NEGATIVE (NEGATIVE); OPIATES URINE NEGATIVE (NEGATIVE); PHENCYCLIDINE URINE NEGATIVE (NEGATIVE)
[2022-06-29 15:25] LABS: BASO % 0.1 % (0.0-1.0); HEMOGLOBIN 10.2 g/dl (13.5-17.5); LYMPH # 0.5 10^3/uL (1.5-5.0); LYMPH % 2.6 % (24.0-44.0); MEAN CORPUSCULAR HEMOGLOBIN 29.7 pg (27.0-33.0); MEAN CORPUSCULAR HGB CONC 31.9 g/dl (32.0-36.5); MONO # 1.2 10^3/uL (0.0-0.8); MONO % 6.2 % (2.0-8.0); NEUTROPHILS % 90.1 % (36.0-66.0); PLATELET COUNT, AUTOMATED 366 10^3/uL (150-450); RED BLOOD COUNT 3.44 10^6/uL (4.30-6.10); WHITE BLOOD COUNT 18.9 10^3/uL (4.0-10.0)
[2022-06-29] MEDS: NS 1,000 ML IV SCH ×3 (15:45→22:13)
[2022-06-29 15:58] LABS: CK-MB VALUE MASS 10.8 NG/ML (<3.6); MB/CK RELATIVE INDEX 2.33 (< OR =4)
[2022-06-29 16:00] LABS: HEMOGLOBIN A1c 11.5 %
[2022-06-29 16:29] LABS: ALBUMIN 3.1 GM/DL (3.2-5.2); BILIRUBIN,DIRECT 0.2 MG/DL (0.0-0.2); BILIRUBIN,TOTAL 0.4 MG/DL (0.2-1.0); TOTAL PROTEIN 6.7 GM/DL (6.4-8.2)
[2022-06-29 16:40] LABS: ACETONE/KETONE 39.33 MG/DL (<2.81)
[2022-06-29] MEDS ORDERED: INSULIN IV RATE CHANGE DOCUMENTATION ML/HR XX SCH (16:45)
[2022-06-29] MEDS ORDERED: INSULIN REGULAR IN 0.9 % NACL 100 UNIT in IV 1 EA IV SCH ×4 (16:45→20:00)
[2022-06-29 18:09] LABS: VENOUS BASE EXCESS -6.6 (-2.0-2.0); VENOUS HCO3 20.5 MEQ/L (23.0-27.0); VENOUS O2 SATURATION 48.3 % (60.0-80.0); VENOUS PARTIAL PRESSURE CO2 47.6 mmHg (38.0-50.0); VENOUS PARTIAL PRESSURE O2 30.3 mmHg (30.0-50.0); VENOUS PH 7.251 UNITS (7.330-7.430); VENOUS STANDARD HCO3 18.2 MEQ/L; VENOUS TOTAL CO2 21.9 MEQ/L (24.0-28.0)
[2022-06-29 18:11] LABS: CK-MB VALUE MASS 10.3 NG/ML (<3.6); MB/CK RELATIVE INDEX 2.19 (< OR =4)
[2022-06-29 19:10] LABS: CK-MB VALUE MASS 10.7 NG/ML (<3.6); MB/CK RELATIVE INDEX 2.36 (< OR =4)
[2022-06-29] MEDS ORDERED: VANCOMYCIN HCL 1,000 MG, VIAL MATE ADAPTER 1 EACH in NS 250 ML IV ONE (20:00)
[2022-06-29] MEDS ORDERED: SODIUM CHLORIDE 0.9% 1000ML IV ONE (20:00)
[2022-06-29] MEDS: IPRATROPIUM 0.5MG/ALBUTEROL 2.5MG INH SOL UD 3ML (DUONEB) NEB SCH (20:00)
[2022-06-29] MEDS: INSULIN IV RATE CHANGE DOCUMENTATION ML/HR XX SCH ×3 (20:59→23:09)
[2022-06-29] MEDS ORDERED: TICAGRELOR 90 MG TABLET (BRILINTA) PO ONE (21:00)
[2022-06-29 21:20] LABS: ABG HCO3 23.2 MEQ/L (22.0-26.0); ABG O2 SATURATION 90.1 % (95.0-99.0); ABG PARTIAL PRESSURE O2 61.9 mmHg (75.0-100.0); ABG STANDARD HCO3 22.7 MEQ/L (22.0-26.0); ABG TOTAL CO2 24.4 MEQ/L (23.0-31.0)
[2022-06-29 21:45] VITALS: BP 146/80
[2022-06-29 21:51] LABS: ALBUMIN 2.9 GM/DL (3.2-5.2); BILIRUBIN,TOTAL 0.5 MG/DL (0.2-1.0); CALCIUM LEVEL 8.1 MG/DL (8.8-10.2); CREATININE FOR GFR 4.55 MG/DL (0.70-1.30); GLOMERULAR FILTRATION RATE 13.3 (>35); POTASSIUM SERUM 4.7 MEQ/L (3.5-5.1); TOTAL PROTEIN 6.3 GM/DL (6.4-8.2)
[2022-06-29 22:00] VITALS: BP 135/78
[2022-06-29] MEDS: cefTRIAXone SOD 1 GM in D5W MINI-BAG PLUS 50 ML IV SCH (22:13)
[2022-06-29 22:30] VITALS: BP 128/79
[2022-06-29 23:00] VITALS: BP 133/78
[2022-06-29] MEDS ORDERED: KCL 20MEQ IN D5/0.45NS 1000ML 1,000 ML IV SCH (23:05)
[2022-06-29] MEDS: CARVedilol 12.5 MG TAB PO SCH (23:13)
[2022-06-30] VITALS (12 sets, daily range): BP systolic 89–122; BP diastolic 55–71; O2SAT 92
[2022-06-30] LABS: CALCIUM LEVEL 7.9 MG/DL (8.8-10.2); CREATININE FOR GFR 4.4 MG/DL (0.70-1.30); GLOMERULAR FILTRATION RATE 13.8 (>35); POTASSIUM SERUM 4.6 MEQ/L (3.5-5.1)
[2022-06-30] MEDS ORDERED: DEXTROSE 50% 50 ML SYRINGE IV PRN (00:05)
[2022-06-30] MEDS ORDERED: GLUCAGON INJ 1MG VIAL SC PRN (00:05)
[2022-06-30] MEDS ORDERED: GLUCOSE 4GM CHEW TABLET PO PRN (00:05)
[2022-06-30] MEDS: INSULIN IV RATE CHANGE DOCUMENTATION ML/HR XX SCH (00:09)
[2022-06-30] MEDS ORDERED: LEVEMIR (INSULIN DETEMIR) 1 UNITS/0.01ML SC ONE (01:00)
[2022-06-30 03:09] LABS: BASO % 0.2 % (0.0-1.0); EOS % 0.1 % (0.0-3.0); HEMATOCRIT 29.6 % (42.0-52.0); HEMOGLOBIN 9.4 g/dl (13.5-17.5); LYMPH # 0.8 10^3/uL (1.5-5.0); LYMPH % 5.3 % (24.0-44.0); MEAN CORPUSCULAR HEMOGLOBIN 29.2 pg (27.0-33.0); MEAN CORPUSCULAR HGB CONC 31.8 g/dl (32.0-36.5); MEAN CORPUSCULAR VOLUME 91.9 fl (80.0-96.0); MONO # 0.8 10^3/uL (0.0-0.8); MONO % 5.2 % (2.0-8.0); NEUTROPHILS % 88.7 % (36.0-66.0); PLATELET COUNT, AUTOMATED 327 10^3/uL (150-450); RED BLOOD COUNT 3.22 10^6/uL (4.30-6.10); WHITE BLOOD COUNT 15.7 10^3/uL (4.0-10.0)
[2022-06-30 03:36] LABS: CALCIUM LEVEL 7.8 MG/DL (8.8-10.2); CREATININE FOR GFR 4.36 MG/DL (0.70-1.30); POTASSIUM SERUM 4.9 MEQ/L (3.5-5.1)
[2022-06-30 05:49] LABS: ABG BASE EXCESS -0.6 (-2.0-2.0); ABG O2 SATURATION 94.3 % (95.0-99.0); ABG PARTIAL PRESSURE CO2 39.6 mmHg (35.0-45.0); ABG PARTIAL PRESSURE O2 73.1 mmHg (75.0-100.0); ABG STANDARD HCO3 23.9 MEQ/L (22.0-26.0); ABG TOTAL CO2 25.3 MEQ/L (23.0-31.0); ABG pH (ARTERIAL) 7.401 UNITS (7.350-7.450)
[2022-06-30] MEDS: HEPARIN SOD (PORCINE) 5000UNITS/ML 1ML VIAL/SYRINGE SC SCH ×3 (05:53→21:19)
[2022-06-30] MEDS: LEVOTHYROXINE 100MCG TABLET (0.1MG) PO SCH (05:53)
[2022-06-30] MEDS: LEVOTHYROXINE 75MCG TABLET (0.075MG) PO SCH (05:53)
[2022-06-30] MEDS: CARVedilol 12.5 MG TAB PO SCH ×3 (05:54→18:00)
[2022-06-30] MEDS: INSULIN LISPRO (NovoLOG) PER UNIT SC SCH ×3 (06:00→18:07)
[2022-06-30 07:43] LABS: BASO % 0.2 % (0.0-1.0); EOS % 0.2 % (0.0-3.0); HEMATOCRIT 30.2 % (42.0-52.0); HEMOGLOBIN 9.6 g/dl (13.5-17.5); LYMPH # 0.8 10^3/uL (1.5-5.0); LYMPH % 4.8 % (24.0-44.0); MEAN CORPUSCULAR HEMOGLOBIN 29.4 pg (27.0-33.0); MEAN CORPUSCULAR HGB CONC 31.8 g/dl (32.0-36.5); MEAN CORPUSCULAR VOLUME 92.4 fl (80.0-96.0); MONO # 0.7 10^3/uL (0.0-0.8); MONO % 4.4 % (2.0-8.0); NEUTROPHILS # 14.8 10^3/uL (1.5-8.5); NEUTROPHILS % 89.9 % (36.0-66.0); PLATELET COUNT, AUTOMATED 343 10^3/uL (150-450); RED BLOOD COUNT 3.27 10^6/uL (4.30-6.10); WHITE BLOOD COUNT 16.4 10^3/uL (4.0-10.0)
[2022-06-30] MEDS: IPRATROPIUM 0.5MG/ALBUTEROL 2.5MG INH SOL UD 3ML (DUONEB) NEB SCH ×4 (07:48→19:54)
[2022-06-30 08:19] LABS: CREATININE FOR GFR 4.35 MG/DL (0.70-1.30); POTASSIUM SERUM 5.3 MEQ/L (3.5-5.1); VANCOMYCIN LEVEL TROUGH 6.5 UG/ML (10.0-20.0)
[2022-06-30] MEDS: PANTOPRAZOLE 40MG VIAL IV SCH (09:40)
[2022-06-30] MEDS: VANCOMYCIN HCL 1,000 MG, VIAL MATE ADAPTER 1 EACH in NS 250 ML IV SCH (09:40)
[2022-06-30] MEDS: TICAGRELOR 90 MG TABLET (BRILINTA) PO SCH ×2 (09:40→21:20)
[2022-06-30] MEDS: ASPIRIN 81 MG CHEW TABLET PO SCH (09:40)
[2022-06-30] MEDS: FUROSEMIDE 100MG/10ML VIAL (J1940) IV SCH ×2 (10:20→18:07)
[2022-06-30 14:02] LABS: PROTEIN, URINE AUTO NEGATIVE (NEGATIVE)
[2022-06-30 17:28] LABS: ALBUMIN 2.6 GM/DL (3.2-5.2); BILIRUBIN,DIRECT 0.2 MG/DL (0.0-0.2); BILIRUBIN,TOTAL 0.4 MG/DL (0.2-1.0); TOTAL PROTEIN 5.5 GM/DL (6.4-8.2)
[2022-06-30] MEDS: cefTRIAXone SOD 1 GM in D5W MINI-BAG PLUS 50 ML IV SCH (21:19)
[2022-07-01] VITALS (10 sets, daily range): BP systolic 90–148; BP diastolic 55–89
[2022-07-01] MEDS: INSULIN LISPRO (NovoLOG) PER UNIT SC SCH ×6 (00:25→20:42)
[2022-07-01] MEDS: FUROSEMIDE 100MG/10ML VIAL (J1940) IV SCH ×3 (02:38→17:42)
[2022-07-01 04:47] LABS: BASO % 0.3 % (0.0-1.0); EOS # 0.2 10^3/uL (0.0-0.5); EOS % 1.8 % (0.0-3.0); HEMATOCRIT 30.9 % (42.0-52.0); HEMOGLOBIN 9.9 g/dl (13.5-17.5); LYMPH # 0.6 10^3/uL (1.5-5.0); LYMPH % 6.3 % (24.0-44.0); MEAN CORPUSCULAR HEMOGLOBIN 29.9 pg (27.0-33.0); MEAN CORPUSCULAR VOLUME 93.4 fl (80.0-96.0); MONO # 0.6 10^3/uL (0.0-0.8); MONO % 6.1 % (2.0-8.0); NEUTROPHILS # 8.6 10^3/uL (1.5-8.5); NEUTROPHILS % 85.2 % (36.0-66.0); PLATELET COUNT, AUTOMATED 349 10^3/uL (150-450); RED BLOOD COUNT 3.31 10^6/uL (4.30-6.10); WHITE BLOOD COUNT 10.1 10^3/uL (4.0-10.0)
[2022-07-01 05:07] LABS: CK-MB VALUE MASS 5.4 NG/ML (<3.6); MB/CK RELATIVE INDEX 3.51 (< OR =4)
[2022-07-01 05:18] LABS: CALCIUM LEVEL 7.7 MG/DL (8.8-10.2); CREATININE FOR GFR 4.12 MG/DL (0.70-1.30); GLOMERULAR FILTRATION RATE 14.9 (>35); POTASSIUM SERUM 4.7 MEQ/L (3.5-5.1)
[2022-07-01 05:22] LABS: PERCENT SATURATION 5.6 % (19.7-50.0); PHOSPHORUS LEVEL 5.2 MG/DL (2.5-4.9)
[2022-07-01 05:54] LABS: ABG BASE EXCESS -3.7 (-2.0-2.0); ABG HCO3 20.4 MEQ/L (22.0-26.0); ABG O2 SATURATION 90.8 % (95.0-99.0); ABG PARTIAL PRESSURE CO2 33.6 mmHg (35.0-45.0); ABG PARTIAL PRESSURE O2 60.7 mmHg (75.0-100.0); ABG STANDARD HCO3 21.3 MEQ/L (22.0-26.0); ABG TOTAL CO2 21.5 MEQ/L (23.0-31.0); ABG pH (ARTERIAL) 7.402 UNITS (7.350-7.450)
[2022-07-01] MEDS: CARVedilol 12.5 MG TAB PO SCH ×4 (06:00→17:42)
[2022-07-01] MEDS: LEVOTHYROXINE 75MCG TABLET (0.075MG) PO SCH (06:30)
[2022-07-01] MEDS: LEVOTHYROXINE 100MCG TABLET (0.1MG) PO SCH (06:30)
[2022-07-01] MEDS: HEPARIN SOD (PORCINE) 5000UNITS/ML 1ML VIAL/SYRINGE SC SCH ×3 (06:30→21:08)
[2022-07-01] MEDS: IPRATROPIUM 0.5MG/ALBUTEROL 2.5MG INH SOL UD 3ML (DUONEB) NEB SCH ×4 (07:14→19:46)
[2022-07-01] MEDS: PANTOPRAZOLE 40MG VIAL IV SCH (08:54)
[2022-07-01] MEDS: SENOKOT S TAB PO SCH ×2 (08:54→20:20)
[2022-07-01] MEDS: ASPIRIN 81 MG CHEW TABLET PO SCH (08:54)
[2022-07-01] MEDS: TICAGRELOR 90 MG TABLET (BRILINTA) PO SCH ×2 (08:54→20:19)
[2022-07-01] MEDS: CALCITRIOL 0.25 MCG CAP (S0169) PO SCH (09:21)
[2022-07-01] MEDS: VANCOMYCIN HCL 1,000 MG, VIAL MATE ADAPTER 1 EACH in NS 250 ML IV SCH (09:22)
[2022-07-01] MEDS ORDERED: FERRIC CARBOXYMALTOSE INJ 750 MG, VIAL MATE ADAPTER 1 EACH in NS 250 ML IV ONE (11:00)
[2022-07-01 11:04] LABS: PTH INTACT 162.2 PG/ML (18.5-88.0)
[2022-07-01] MEDS: cefTRIAXone SOD 1 GM in D5W MINI-BAG PLUS 50 ML IV SCH (20:21)
[2022-07-02] VITALS (22 sets, daily range): BP systolic 56–123; BP diastolic 37–88
[2022-07-02] MEDS: FUROSEMIDE 100MG/10ML VIAL (J1940) IV SCH ×3 (00:56→17:49)
[2022-07-02] MEDS: LEVOTHYROXINE 75MCG TABLET (0.075MG) PO SCH (05:17)
[2022-07-02] MEDS: LEVOTHYROXINE 100MCG TABLET (0.1MG) PO SCH (05:17)
[2022-07-02] MEDS: CARVedilol 12.5 MG TAB PO SCH ×4 (05:17→18:13)
[2022-07-02] MEDS: HEPARIN SOD (PORCINE) 5000UNITS/ML 1ML VIAL/SYRINGE SC SCH ×3 (05:18→20:57)
[2022-07-02] MEDS: IPRATROPIUM 0.5MG/ALBUTEROL 2.5MG INH SOL UD 3ML (DUONEB) NEB SCH ×4 (07:23→19:10)
[2022-07-02 08:01] LABS: BASO % 0.3 % (0.0-1.0); EOS # 0.2 10^3/uL (0.0-0.5); HEMATOCRIT 31.8 % (42.0-52.0); HEMOGLOBIN 10.1 g/dl (13.5-17.5); LYMPH # 0.5 10^3/uL (1.5-5.0); MEAN CORPUSCULAR HEMOGLOBIN 29.3 pg (27.0-33.0); MEAN CORPUSCULAR HGB CONC 31.8 g/dl (32.0-36.5); MEAN CORPUSCULAR VOLUME 92.2 fl (80.0-96.0); MONO # 0.6 10^3/uL (0.0-0.8); MONO % 9.2 % (2.0-8.0); NEUTROPHILS # 4.6 10^3/uL (1.5-8.5); NEUTROPHILS % 77.2 % (36.0-66.0); PLATELET COUNT, AUTOMATED 353 10^3/uL (150-450); RED BLOOD COUNT 3.45 10^6/uL (4.30-6.10)
[2022-07-02] MEDS: PANTOPRAZOLE 40MG VIAL IV SCH (08:17)
[2022-07-02] MEDS: TICAGRELOR 90 MG TABLET (BRILINTA) PO SCH ×2 (08:19→20:01)
[2022-07-02] MEDS: CALCITRIOL 0.25 MCG CAP (S0169) PO SCH (08:19)
[2022-07-02] MEDS: SENOKOT S TAB PO SCH ×2 (08:19→20:01)
[2022-07-02] MEDS: ASPIRIN 81 MG CHEW TABLET PO SCH (08:19)
[2022-07-02] MEDS: INSULIN LISPRO (NovoLOG) PER UNIT SC SCH ×4 (08:19→20:02)
[2022-07-02 08:36] LABS: BLOOD UREA NITROGEN 114 MG/DL (7-18); CALCIUM LEVEL 7.5 MG/DL (8.8-10.2); CARBON DIOXIDE LEVEL 26 MEQ/L (21-32); CHLORIDE LEVEL 102 MEQ/L (98-107); CREATININE FOR GFR 3.93 MG/DL (0.70-1.30); GLOMERULAR FILTRATION RATE 15.7 (>35); GLUCOSE, FASTING 252 MG/DL (70-100); POTASSIUM SERUM 3.6 MEQ/L (3.5-5.1); SODIUM LEVEL 137 MEQ/L (136-145)
[2022-07-02 10:23] LABS: ALBUMIN 2.5 GM/DL (3.2-5.2); ALT/SGPT 261 U/L (12-78); BILIRUBIN,DIRECT < 0.1 MG/DL (0.0-0.2); BILIRUBIN,TOTAL 0.3 MG/DL (0.2-1.0); TOTAL PROTEIN 5.9 GM/DL (6.4-8.2)
[2022-07-02] MEDS: ceFAZolin SOD 1 GM in D5W MINI-BAG PLUS 50 ML IV SCH ×2 (10:49→20:00)
[2022-07-02] MEDS ORDERED: POTASSIUM CHLORIDE 10MEQ SR TABLET PO ONE (11:00)
[2022-07-02 13:08] LABS: CK-MB VALUE MASS 2.6 NG/ML (<3.6); MB/CK RELATIVE INDEX 3.38 (< OR =4)
[2022-07-03] VITALS (11 sets, daily range): BP systolic 78–132; BP diastolic 53–76
[2022-07-03] MEDS: LEVOTHYROXINE 100MCG TABLET (0.1MG) PO SCH (05:00)
[2022-07-03] MEDS: LEVOTHYROXINE 75MCG TABLET (0.075MG) PO SCH (05:00)
[2022-07-03] MEDS: CARVedilol 12.5 MG TAB PO SCH ×5 (05:00→23:27)
[2022-07-03] MEDS: HEPARIN SOD (PORCINE) 5000UNITS/ML 1ML VIAL/SYRINGE SC SCH ×3 (05:02→22:07)
[2022-07-03 05:59] LABS: BASO % 0.3 % (0.0-1.0); EOS # 0.3 10^3/uL (0.0-0.5); EOS % 3.9 % (0.0-3.0); HEMATOCRIT 33.9 % (42.0-52.0); HEMOGLOBIN 10.5 g/dl (13.5-17.5); LYMPH # 0.5 10^3/uL (1.5-5.0); MEAN CORPUSCULAR HEMOGLOBIN 28.5 pg (27.0-33.0); MEAN CORPUSCULAR VOLUME 92.1 fl (80.0-96.0); MONO # 0.6 10^3/uL (0.0-0.8); MONO % 8.4 % (2.0-8.0); NEUTROPHILS # 5.8 10^3/uL (1.5-8.5); PLATELET COUNT, AUTOMATED 386 10^3/uL (150-450); RED BLOOD COUNT 3.68 10^6/uL (4.30-6.10); WHITE BLOOD COUNT 7.3 10^3/uL (4.0-10.0)
[2022-07-03 06:27] LABS: BLOOD UREA NITROGEN 97 MG/DL (7-18); C REACTIVE PROTEIN QUANTITATIV 2.27 MG/DL (0.00-0.30); CALCIUM LEVEL 7.8 MG/DL (8.8-10.2); CARBON DIOXIDE LEVEL 29 MEQ/L (21-32); CHLORIDE LEVEL 99 MEQ/L (98-107); GLOMERULAR FILTRATION RATE 16.9 (>35); GLUCOSE, FASTING 266 MG/DL (70-100); POTASSIUM SERUM 3.7 MEQ/L (3.5-5.1); SODIUM LEVEL 137 MEQ/L (136-145)
[2022-07-03 07:04] LABS: ALBUMIN 2.8 GM/DL (3.2-5.2); ALT/SGPT 305 U/L (12-78); BILIRUBIN,DIRECT 0.1 MG/DL (0.0-0.2); BILIRUBIN,TOTAL 0.3 MG/DL (0.2-1.0); TOTAL PROTEIN 5.9 GM/DL (6.4-8.2)
[2022-07-03] MEDS: IPRATROPIUM 0.5MG/ALBUTEROL 2.5MG INH SOL UD 3ML (DUONEB) NEB SCH ×4 (07:13→19:56)
[2022-07-03 07:15] LABS: ERYTHROCYTE SEDIMENTATION RATE 29 mm/hr (0-20)
[2022-07-03] MEDS ORDERED: POTASSIUM CHLORIDE 10MEQ SR TABLET PO ONE (09:45)
[2022-07-03 10:07] LABS: HEPATITIS B SURFACE ANTIGEN NEGATIVE (NEGATIVE)
[2022-07-03] MEDS: MOM 30ML SUSPENSION UDC PO PRN (10:17)
[2022-07-03] MEDS: INSULIN LISPRO (NovoLOG) PER UNIT SC SCH ×4 (10:17→21:00)
[2022-07-03] MEDS: SENOKOT S TAB PO SCH ×2 (10:18→22:06)
[2022-07-03] MEDS: CALCITRIOL 0.25 MCG CAP (S0169) PO SCH ×2 (10:18→22:06)
[2022-07-03] MEDS: FUROSEMIDE 100MG/10ML VIAL (J1940) IV SCH ×2 (10:19→17:34)
[2022-07-03] MEDS: ASPIRIN 81 MG CHEW TABLET PO SCH (10:19)
[2022-07-03] MEDS: ceFAZolin SOD 1 GM in D5W MINI-BAG PLUS 50 ML IV SCH ×2 (10:19→22:07)
[2022-07-03] MEDS: MIRALAX *UNIT DOSE* 17GM PACKET PO PRN (10:19)
[2022-07-03] MEDS: TICAGRELOR 90 MG TABLET (BRILINTA) PO SCH ×2 (10:22→22:09)
[2022-07-03] MEDS: PANTOPRAZOLE 40MG VIAL IV SCH (10:23)
[2022-07-03 10:34] LABS: HEPATITIS C VIRUS ABY INDEX < 0.0 INDEX (<0.8)
[2022-07-03 10:35] LABS: HEPATITIS B CORE ANTIBODY IGM NEGATIVE (NEGATIVE)
[2022-07-04] VITALS (8 sets, daily range): BP systolic 97–150; BP diastolic 54–79
[2022-07-04] MEDS: LEVOTHYROXINE 100MCG TABLET (0.1MG) PO SCH (05:08)
[2022-07-04] MEDS: LEVOTHYROXINE 75MCG TABLET (0.075MG) PO SCH (05:09)
[2022-07-04 05:10] LABS: BASO % 0.3 % (0.0-1.0); EOS # 0.3 10^3/uL (0.0-0.5); EOS % 5.3 % (0.0-3.0); HEMATOCRIT 31.7 % (42.0-52.0); HEMOGLOBIN 10.1 g/dl (13.5-17.5); LYMPH # 0.6 10^3/uL (1.5-5.0); LYMPH % 9.6 % (24.0-44.0); MEAN CORPUSCULAR HEMOGLOBIN 29.6 pg (27.0-33.0); MEAN CORPUSCULAR HGB CONC 31.9 g/dl (32.0-36.5); MONO # 0.6 10^3/uL (0.0-0.8); MONO % 9.3 % (2.0-8.0); NEUTROPHILS # 4.5 10^3/uL (1.5-8.5); NEUTROPHILS % 74.8 % (36.0-66.0); PLATELET COUNT, AUTOMATED 358 10^3/uL (150-450); RED BLOOD COUNT 3.41 10^6/uL (4.30-6.10)
[2022-07-04] MEDS: CARVedilol 12.5 MG TAB PO SCH ×4 (05:10→23:04)
[2022-07-04] MEDS: HEPARIN SOD (PORCINE) 5000UNITS/ML 1ML VIAL/SYRINGE SC SCH ×3 (05:11→23:04)
[2022-07-04 05:49] LABS: ALBUMIN 2.6 GM/DL (3.2-5.2); BILIRUBIN,TOTAL 0.3 MG/DL (0.2-1.0); CALCIUM LEVEL 7.8 MG/DL (8.8-10.2); CREATININE FOR GFR 3.4 MG/DL (0.70-1.30); GLOMERULAR FILTRATION RATE 18.6 (>35); POTASSIUM SERUM 3.9 MEQ/L (3.5-5.1); TOTAL PROTEIN 5.9 GM/DL (6.4-8.2)
[2022-07-04] MEDS: IPRATROPIUM 0.5MG/ALBUTEROL 2.5MG INH SOL UD 3ML (DUONEB) NEB SCH ×4 (08:00→19:53)
[2022-07-04] MEDS: ceFAZolin SOD 1 GM in D5W MINI-BAG PLUS 50 ML IV SCH ×2 (08:35→20:19)
[2022-07-04] MEDS: SENOKOT S TAB PO SCH ×2 (08:35→20:19)
[2022-07-04] MEDS: TICAGRELOR 90 MG TABLET (BRILINTA) PO SCH ×2 (08:35→20:19)
[2022-07-04] MEDS: ASPIRIN 81 MG CHEW TABLET PO SCH (08:35)
[2022-07-04] MEDS: INSULIN LISPRO (NovoLOG) PER UNIT SC SCH ×4 (08:35→19:55)
[2022-07-04] MEDS: PANTOPRAZOLE 40MG VIAL IV SCH (08:36)
[2022-07-04] MEDS: FUROSEMIDE 100MG/10ML VIAL (J1940) IV SCH (08:36)
[2022-07-04] MEDS: TORSEMIDE 20 MG TAB PO SCH (17:30)
[2022-07-05] VITALS (9 sets, daily range): BP systolic 76–160; BP diastolic 50–87
[2022-07-05] MEDS: HEPARIN SOD (PORCINE) 5000UNITS/ML 1ML VIAL/SYRINGE SC SCH ×3 (05:01→21:15)
[2022-07-05] MEDS: LEVOTHYROXINE 75MCG TABLET (0.075MG) PO SCH (05:01)
[2022-07-05] MEDS: LEVOTHYROXINE 100MCG TABLET (0.1MG) PO SCH (05:01)
[2022-07-05] MEDS: CARVedilol 12.5 MG TAB PO SCH ×3 (05:02→17:11)
[2022-07-05 05:09] LABS: BASO % 0.3 % (0.0-1.0); EOS # 0.4 10^3/uL (0.0-0.5); EOS % 5.8 % (0.0-3.0); HEMATOCRIT 31.8 % (42.0-52.0); HEMOGLOBIN 9.9 g/dl (13.5-17.5); LYMPH # 0.6 10^3/uL (1.5-5.0); LYMPH % 8.8 % (24.0-44.0); MEAN CORPUSCULAR HGB CONC 31.1 g/dl (32.0-36.5); MEAN CORPUSCULAR VOLUME 93.3 fl (80.0-96.0); MONO # 0.6 10^3/uL (0.0-0.8); MONO % 8.4 % (2.0-8.0); NEUTROPHILS # 5.5 10^3/uL (1.5-8.5); NEUTROPHILS % 76.1 % (36.0-66.0); PLATELET COUNT, AUTOMATED 372 10^3/uL (150-450); RED BLOOD COUNT 3.41 10^6/uL (4.30-6.10); WHITE BLOOD COUNT 7.3 10^3/uL (4.0-10.0)
[2022-07-05 05:32] LABS: ERYTHROCYTE SEDIMENTATION RATE 31 mm/hr (0-20)
[2022-07-05 06:09] LABS: BLOOD UREA NITROGEN 84 MG/DL (7-18); C REACTIVE PROTEIN QUANTITATIV 1.61 MG/DL (0.00-0.30); CALCIUM LEVEL 7.7 MG/DL (8.8-10.2); CARBON DIOXIDE LEVEL 31 MEQ/L (21-32); CHLORIDE LEVEL 99 MEQ/L (98-107); CREATININE FOR GFR 3.29 MG/DL (0.70-1.30); GLOMERULAR FILTRATION RATE 19.3 (>35); GLUCOSE, FASTING 218 MG/DL (70-100); POTASSIUM SERUM 3.7 MEQ/L (3.5-5.1); SODIUM LEVEL 136 MEQ/L (136-145)
[2022-07-05] MEDS: IPRATROPIUM 0.5MG/ALBUTEROL 2.5MG INH SOL UD 3ML (DUONEB) NEB SCH ×4 (07:59→20:11)
[2022-07-05] MEDS ORDERED: FINASTERIDE 5MG TAB PO SCH (09:00)
[2022-07-05] MEDS ORDERED: TAMSULOSIN 0.4 MG CAP PO SCH (09:00)
[2022-07-05] MEDS: INSULIN LISPRO (NovoLOG) PER UNIT SC SCH ×4 (09:13→20:36)
[2022-07-05] MEDS: SENOKOT S TAB PO SCH ×2 (09:14→20:30)
[2022-07-05] MEDS: TORSEMIDE 20 MG TAB PO SCH ×2 (09:14→17:07)
[2022-07-05] MEDS: ASPIRIN 81 MG CHEW TABLET PO SCH (09:14)
[2022-07-05] MEDS: PANTOPRAZOLE 40MG VIAL IV SCH (09:14)
[2022-07-05] MEDS: ceFAZolin SOD 1 GM in D5W MINI-BAG PLUS 50 ML IV SCH ×2 (09:14→20:30)
[2022-07-05] MEDS: CALCITRIOL 0.25 MCG CAP (S0169) PO SCH (09:15)
[2022-07-05] MEDS: TICAGRELOR 90 MG TABLET (BRILINTA) PO SCH ×2 (09:15→20:30)
[2022-07-05 09:20] LABS: ALBUMIN 2.6 GM/DL (3.2-5.2); ALT/SGPT 115 U/L (12-78); BILIRUBIN,DIRECT < 0.1 MG/DL (0.0-0.2); BILIRUBIN,TOTAL 0.3 MG/DL (0.2-1.0); TOTAL PROTEIN 6.1 GM/DL (6.4-8.2)
[2022-07-05] MEDS: FINASTERIDE 5MG TAB PO SCH (12:08)
[2022-07-06] VITALS (7 sets, daily range): BP systolic 91–140; BP diastolic 53–85
[2022-07-06] MEDS: CARVedilol 12.5 MG TAB PO SCH ×4 (00:25→18:00)
[2022-07-06] MEDS: HEPARIN SOD (PORCINE) 5000UNITS/ML 1ML VIAL/SYRINGE SC SCH ×3 (05:25→21:04)
[2022-07-06] MEDS: LEVOTHYROXINE 100MCG TABLET (0.1MG) PO SCH (05:26)
[2022-07-06] MEDS: LEVOTHYROXINE 75MCG TABLET (0.075MG) PO SCH (05:26)
[2022-07-06 05:57] LABS: HEMATOCRIT 31.9 % (42.0-52.0); HEMOGLOBIN 10.2 g/dl (13.5-17.5); MEAN CORPUSCULAR HEMOGLOBIN 29.8 pg (27.0-33.0); MEAN CORPUSCULAR VOLUME 93.3 fl (80.0-96.0); PLATELET COUNT, AUTOMATED 376 10^3/uL (150-450); RED BLOOD COUNT 3.42 10^6/uL (4.30-6.10); WHITE BLOOD COUNT 8.2 10^3/uL (4.0-10.0)
[2022-07-06 06:29] LABS: ALBUMIN 2.7 GM/DL (3.2-5.2); BILIRUBIN,TOTAL 0.4 MG/DL (0.2-1.0); CREATININE FOR GFR 3.12 MG/DL (0.70-1.30); GLOMERULAR FILTRATION RATE 20.5 (>35); POTASSIUM SERUM 3.5 MEQ/L (3.5-5.1); TOTAL PROTEIN 6.1 GM/DL (6.4-8.2)
[2022-07-06] MEDS: IPRATROPIUM 0.5MG/ALBUTEROL 2.5MG INH SOL UD 3ML (DUONEB) NEB SCH ×4 (07:51→19:32)
[2022-07-06] MEDS: INSULIN LISPRO (NovoLOG) PER UNIT SC SCH ×4 (08:24→20:37)
[2022-07-06] MEDS: ASPIRIN 81 MG CHEW TABLET PO SCH (08:24)
[2022-07-06] MEDS: TICAGRELOR 90 MG TABLET (BRILINTA) PO SCH ×2 (08:24→20:36)
[2022-07-06] MEDS: CALCITRIOL 0.25 MCG CAP (S0169) PO SCH (08:26)
[2022-07-06] MEDS: TORSEMIDE 20 MG TAB PO SCH ×2 (08:26→16:20)
[2022-07-06] MEDS: SENOKOT S TAB PO SCH ×2 (08:26→20:36)
[2022-07-06] MEDS: FINASTERIDE 5MG TAB PO SCH (08:26)
[2022-07-06] MEDS: PANTOPRAZOLE 40MG VIAL IV SCH (08:27)
[2022-07-06] MEDS: ceFAZolin SOD 1 GM in D5W MINI-BAG PLUS 50 ML IV SCH ×2 (08:27→20:37)
[2022-07-06] MEDS ORDERED: POTASSIUM CHLORIDE 10MEQ SR TABLET PO ONE (11:25)
[2022-07-06] MEDS: MOM 30ML SUSPENSION UDC PO PRN (14:05)
[2022-07-06] MEDS: MIRALAX *UNIT DOSE* 17GM PACKET PO PRN (14:05)
[2022-07-06] MEDS: TAMSULOSIN 0.4 MG CAP PO SCH (20:36)
[2022-07-06] MEDS: POTASSIUM CHLORIDE 10MEQ SR TABLET PO SCH (20:37)
[2022-07-07] VITALS (7 sets, daily range): BP systolic 118–143; BP diastolic 64–88
[2022-07-07] MEDS: CARVedilol 12.5 MG TAB PO SCH ×4 (00:13→19:09)
[2022-07-07] MEDS: LEVOTHYROXINE 75MCG TABLET (0.075MG) PO SCH (06:03)
[2022-07-07] MEDS: LEVOTHYROXINE 100MCG TABLET (0.1MG) PO SCH (06:04)
[2022-07-07] MEDS: HEPARIN SOD (PORCINE) 5000UNITS/ML 1ML VIAL/SYRINGE SC SCH ×3 (06:04→21:37)
[2022-07-07 06:17] LABS: HEMATOCRIT 29.5 % (42.0-52.0); HEMOGLOBIN 9.4 g/dl (13.5-17.5); MEAN CORPUSCULAR HGB CONC 31.9 g/dl (32.0-36.5); MEAN CORPUSCULAR VOLUME 94.2 fl (80.0-96.0); PLATELET COUNT, AUTOMATED 367 10^3/uL (150-450); RED BLOOD COUNT 3.13 10^6/uL (4.30-6.10); WHITE BLOOD COUNT 7.7 10^3/uL (4.0-10.0)
[2022-07-07 06:58] LABS: ALBUMIN 2.7 GM/DL (3.2-5.2); BILIRUBIN,TOTAL 0.3 MG/DL (0.2-1.0); CALCIUM LEVEL 8.2 MG/DL (8.8-10.2); CREATININE FOR GFR 3.33 MG/DL (0.70-1.30); GLOMERULAR FILTRATION RATE 19.1 (>35); POTASSIUM SERUM 4.4 MEQ/L (3.5-5.1); TOTAL PROTEIN 5.6 GM/DL (6.4-8.2)
[2022-07-07] MEDS: IPRATROPIUM 0.5MG/ALBUTEROL 2.5MG INH SOL UD 3ML (DUONEB) NEB SCH ×4 (08:16→19:26)
[2022-07-07] MEDS: INSULIN LISPRO (NovoLOG) PER UNIT SC SCH ×4 (08:54→20:45)
[2022-07-07] MEDS: POTASSIUM CHLORIDE 10MEQ SR TABLET PO SCH ×2 (08:55→20:45)
[2022-07-07] MEDS: ASPIRIN 81 MG CHEW TABLET PO SCH (08:55)
[2022-07-07] MEDS: TICAGRELOR 90 MG TABLET (BRILINTA) PO SCH ×2 (08:55→21:37)
[2022-07-07] MEDS: TORSEMIDE 20 MG TAB PO SCH ×2 (08:56→16:49)
[2022-07-07] MEDS: FINASTERIDE 5MG TAB PO SCH (08:56)
[2022-07-07] MEDS: SENOKOT S TAB PO SCH ×2 (08:56→20:45)
[2022-07-07] MEDS: CALCITRIOL 0.25 MCG CAP (S0169) PO SCH (08:57)
[2022-07-07] MEDS: PANTOPRAZOLE 40MG VIAL IV SCH (08:57)
[2022-07-07] MEDS: ceFAZolin SOD 1 GM in D5W MINI-BAG PLUS 50 ML IV SCH ×2 (08:57→20:46)
[2022-07-07] MEDS: TAMSULOSIN 0.4 MG CAP PO SCH (20:45)
[2022-07-08] VITALS: BP 126/75
[2022-07-08] MEDS: CARVedilol 12.5 MG TAB PO SCH ×4 (00:14→16:50)
[2022-07-08] MEDS: LEVOTHYROXINE 75MCG TABLET (0.075MG) PO SCH (05:55)
[2022-07-08] MEDS: LEVOTHYROXINE 100MCG TABLET (0.1MG) PO SCH (05:55)
[2022-07-08] MEDS: HEPARIN SOD (PORCINE) 5000UNITS/ML 1ML VIAL/SYRINGE SC SCH ×3 (05:55→20:40)
[2022-07-08 06:00] VITALS: BP 111/66
[2022-07-08 06:43] LABS: HEMATOCRIT 31.4 % (42.0-52.0); HEMOGLOBIN 9.7 g/dl (13.5-17.5); MEAN CORPUSCULAR HEMOGLOBIN 29.4 pg (27.0-33.0); MEAN CORPUSCULAR HGB CONC 30.9 g/dl (32.0-36.5); MEAN CORPUSCULAR VOLUME 95.2 fl (80.0-96.0); PLATELET COUNT, AUTOMATED 371 10^3/uL (150-450); WHITE BLOOD COUNT 7.4 10^3/uL (4.0-10.0)
[2022-07-08] MEDS: IPRATROPIUM 0.5MG/ALBUTEROL 2.5MG INH SOL UD 3ML (DUONEB) NEB SCH (06:57)
[2022-07-08 07:13] LABS: ALBUMIN 2.9 GM/DL (3.2-5.2); BILIRUBIN,TOTAL 0.4 MG/DL (0.2-1.0); CALCIUM LEVEL 8.3 MG/DL (8.8-10.2); CREATININE FOR GFR 3.39 MG/DL (0.70-1.30); GLOMERULAR FILTRATION RATE 18.7 (>35); POTASSIUM SERUM 4.3 MEQ/L (3.5-5.1); TOTAL PROTEIN 5.7 GM/DL (6.4-8.2)
[2022-07-08] MEDS: ceFAZolin SOD 1 GM in D5W MINI-BAG PLUS 50 ML IV SCH ×2 (10:06→20:40)
[2022-07-08] MEDS: INSULIN LISPRO (NovoLOG) PER UNIT SC SCH ×4 (10:07→20:41)
[2022-07-08] MEDS: PANTOPRAZOLE 40MG VIAL IV SCH (10:07)
[2022-07-08] MEDS: ASPIRIN 81 MG CHEW TABLET PO SCH (10:11)
[2022-07-08] MEDS: FINASTERIDE 5MG TAB PO SCH (10:11)
[2022-07-08] MEDS: TICAGRELOR 90 MG TABLET (BRILINTA) PO SCH ×2 (10:12→20:40)
[2022-07-08] MEDS: TORSEMIDE 20 MG TAB PO SCH ×2 (10:12→16:42)
[2022-07-08] MEDS: POTASSIUM CHLORIDE 10MEQ SR TABLET PO SCH ×2 (10:12→20:40)
[2022-07-08] MEDS: CALCITRIOL 0.25 MCG CAP (S0169) PO SCH (10:13)
[2022-07-08] MEDS: SENOKOT S TAB PO SCH ×2 (10:13→20:40)
[2022-07-08] MEDS ORDERED: IPRATROPIUM 0.5MG/ALBUTEROL 2.5MG INH SOL UD 3ML (DUONEB) NEB PRN (11:10)
[2022-07-08 14:00] VITALS: BP 109/60
[2022-07-08] MEDS: TAMSULOSIN 0.4 MG CAP PO SCH (20:41)
[2022-07-08 21:00] VITALS: BP 126/65
[2022-07-09] MEDS: CARVedilol 12.5 MG TAB PO SCH ×4 (01:01→18:11)
[2022-07-09] MEDS: HEPARIN SOD (PORCINE) 5000UNITS/ML 1ML VIAL/SYRINGE SC SCH ×3 (05:41→20:55)
[2022-07-09] MEDS: LEVOTHYROXINE 75MCG TABLET (0.075MG) PO SCH (05:41)
[2022-07-09] MEDS: LEVOTHYROXINE 100MCG TABLET (0.1MG) PO SCH (05:41)
[2022-07-09 06:00] VITALS: BP 135/75
[2022-07-09 06:36] LABS: HEMATOCRIT 32.7 % (42.0-52.0); HEMOGLOBIN 10.1 g/dl (13.5-17.5); MEAN CORPUSCULAR HEMOGLOBIN 29.5 pg (27.0-33.0); MEAN CORPUSCULAR HGB CONC 30.9 g/dl (32.0-36.5); MEAN CORPUSCULAR VOLUME 95.6 fl (80.0-96.0); PLATELET COUNT, AUTOMATED 388 10^3/uL (150-450); RED BLOOD COUNT 3.42 10^6/uL (4.30-6.10); WHITE BLOOD COUNT 6.8 10^3/uL (4.0-10.0)
[2022-07-09 06:58] LABS: ALBUMIN 2.8 GM/DL (3.2-5.2); BILIRUBIN,TOTAL 0.3 MG/DL (0.2-1.0); CALCIUM LEVEL 8.3 MG/DL (8.8-10.2); CREATININE FOR GFR 3.43 MG/DL (0.70-1.30); GLOMERULAR FILTRATION RATE 18.4 (>35); POTASSIUM SERUM 4.2 MEQ/L (3.5-5.1)
[2022-07-09] MEDS: INSULIN LISPRO (NovoLOG) PER UNIT SC SCH ×4 (07:34→20:56)
[2022-07-09 09:00] VITALS: BP 129/74
[2022-07-09] MEDS: ASPIRIN 81 MG CHEW TABLET PO SCH (09:29)
[2022-07-09] MEDS: CALCITRIOL 0.25 MCG CAP (S0169) PO SCH (09:30)
[2022-07-09] MEDS: TICAGRELOR 90 MG TABLET (BRILINTA) PO SCH ×2 (09:30→20:56)
[2022-07-09] MEDS: POTASSIUM CHLORIDE 10MEQ SR TABLET PO SCH ×2 (09:30→20:56)
[2022-07-09] MEDS: TORSEMIDE 20 MG TAB PO SCH ×2 (09:31→18:10)
[2022-07-09] MEDS: FINASTERIDE 5MG TAB PO SCH (09:31)
[2022-07-09] MEDS: PANTOPRAZOLE 40MG VIAL IV SCH (09:32)
[2022-07-09] MEDS: ceFAZolin SOD 1 GM in D5W MINI-BAG PLUS 50 ML IV SCH ×2 (09:32→20:56)
[2022-07-09] MEDS: SENOKOT S TAB PO SCH ×2 (09:36→20:56)
[2022-07-09 14:00] VITALS: BP_SYST 103; BP_SYST 126; BP_DIAS 63; BP_DIAS 66
[2022-07-09 20:47] VITALS: BP 108/67
[2022-07-09] MEDS: TAMSULOSIN 0.4 MG CAP PO SCH (20:56)
[2022-07-10] MEDS: CARVedilol 12.5 MG TAB PO SCH ×2 (00:26→05:27)
[2022-07-10] MEDS: LEVOTHYROXINE 100MCG TABLET (0.1MG) PO SCH (05:34)
[2022-07-10] MEDS: LEVOTHYROXINE 75MCG TABLET (0.075MG) PO SCH (05:34)
[2022-07-10] MEDS: HEPARIN SOD (PORCINE) 5000UNITS/ML 1ML VIAL/SYRINGE SC SCH ×3 (05:35→21:20)
[2022-07-10 06:00] VITALS: BP 103/71
[2022-07-10 07:31] LABS: HEMATOCRIT 31.1 % (42.0-52.0); HEMOGLOBIN 9.5 g/dl (13.5-17.5); MEAN CORPUSCULAR HEMOGLOBIN 29.5 pg (27.0-33.0); MEAN CORPUSCULAR HGB CONC 30.5 g/dl (32.0-36.5); MEAN CORPUSCULAR VOLUME 96.6 fl (80.0-96.0); PLATELET COUNT, AUTOMATED 367 10^3/uL (150-450); RED BLOOD COUNT 3.22 10^6/uL (4.30-6.10); WHITE BLOOD COUNT 6.9 10^3/uL (4.0-10.0)
[2022-07-10 07:56] LABS: ALBUMIN 2.6 GM/DL (3.2-5.2); BILIRUBIN,TOTAL 0.3 MG/DL (0.2-1.0); CALCIUM LEVEL 8.2 MG/DL (8.8-10.2); CREATININE FOR GFR 3.63 MG/DL (0.70-1.30); GLOMERULAR FILTRATION RATE 17.2 (>35); POTASSIUM SERUM 4.4 MEQ/L (3.5-5.1); TOTAL PROTEIN 5.6 GM/DL (6.4-8.2)
[2022-07-10 08:54] VITALS: BP 72/34
[2022-07-10] MEDS ORDERED: CARVedilol 12.5 MG TAB PO SCH (08:55)
[2022-07-10] MEDS ORDERED: NS 1,000 ML IV ONE (09:00)
[2022-07-10] MEDS ORDERED: MIDODRINE 5 MG TAB PO ONE (09:00)
[2022-07-10] MEDS: ceFAZolin SOD 1 GM in D5W MINI-BAG PLUS 50 ML IV SCH ×2 (09:35→21:18)
[2022-07-10] MEDS: FINASTERIDE 5MG TAB PO SCH (09:36)
[2022-07-10] MEDS: PANTOPRAZOLE 40MG VIAL IV SCH (09:36)
[2022-07-10] MEDS: TICAGRELOR 90 MG TABLET (BRILINTA) PO SCH ×2 (09:36→21:18)
[2022-07-10] MEDS: INSULIN LISPRO (NovoLOG) PER UNIT SC SCH ×4 (09:36→20:56)
[2022-07-10] MEDS: POTASSIUM CHLORIDE 10MEQ SR TABLET PO SCH (09:37)
[2022-07-10] MEDS: ASPIRIN 81 MG CHEW TABLET PO SCH (09:37)
[2022-07-10] MEDS: CALCITRIOL 0.25 MCG CAP (S0169) PO SCH (09:37)
[2022-07-10] MEDS: SENOKOT S TAB PO SCH ×2 (09:37→21:18)
[2022-07-10 10:08] LABS: C REACTIVE PROTEIN QUANTITATIV 1.21 MG/DL (0.00-0.30); CALCIUM LEVEL 8.4 MG/DL (8.8-10.2); CREATININE FOR GFR 3.65 MG/DL (0.70-1.30); GLOMERULAR FILTRATION RATE 17.1 (>35); POTASSIUM SERUM 4.5 MEQ/L (3.5-5.1)
[2022-07-10] MEDS: DARBEPOETIN 100 MCG/0.5 ML *NON-DIALYSIS* SYRINGE (J0881) SC SCH (10:56)
[2022-07-10 10:59] VITALS: BP 80/51
[2022-07-10] MEDS ORDERED: NS 250 ML IV ONE (11:55)
[2022-07-10] MEDS ORDERED: NS 1,000 ML IV SCH (11:55)
[2022-07-10] MEDS ORDERED: MIDODRINE 5 MG TAB PO SCH (12:00)
[2022-07-10 12:05] VITALS: BP 131/73
[2022-07-10 14:00] VITALS: BP 110/55
[2022-07-10 20:30] VITALS: BP 108/56
[2022-07-11 05:20] VITALS: BP 117/64
[2022-07-11] MEDS: LEVOTHYROXINE 75MCG TABLET (0.075MG) PO SCH (05:29)
[2022-07-11] MEDS: LEVOTHYROXINE 100MCG TABLET (0.1MG) PO SCH (05:29)
[2022-07-11] MEDS: HEPARIN SOD (PORCINE) 5000UNITS/ML 1ML VIAL/SYRINGE SC SCH ×3 (05:30→20:15)
[2022-07-11 07:14] LABS: HEMATOCRIT 30.6 % (42.0-52.0); HEMOGLOBIN 9.6 g/dl (13.5-17.5); MEAN CORPUSCULAR HEMOGLOBIN 30.8 pg (27.0-33.0); MEAN CORPUSCULAR HGB CONC 31.4 g/dl (32.0-36.5); MEAN CORPUSCULAR VOLUME 98.1 fl (80.0-96.0); PLATELET COUNT, AUTOMATED 360 10^3/uL (150-450); RED BLOOD COUNT 3.12 10^6/uL (4.30-6.10); WHITE BLOOD COUNT 6.3 10^3/uL (4.0-10.0)
[2022-07-11 07:54] LABS: ALBUMIN 2.7 GM/DL (3.2-5.2); BILIRUBIN,TOTAL 0.3 MG/DL (0.2-1.0); CALCIUM LEVEL 8.5 MG/DL (8.8-10.2); CREATININE FOR GFR 3.77 MG/DL (0.70-1.30); GLOMERULAR FILTRATION RATE 16.5 (>35); POTASSIUM SERUM 4.7 MEQ/L (3.5-5.1); TOTAL PROTEIN 5.7 GM/DL (6.4-8.2)
[2022-07-11] MEDS: ceFAZolin SOD 1 GM in D5W MINI-BAG PLUS 50 ML IV SCH ×2 (09:27→20:14)
[2022-07-11] MEDS: INSULIN LISPRO (NovoLOG) PER UNIT SC SCH ×4 (09:27→20:24)
[2022-07-11] MEDS: CALCITRIOL 0.25 MCG CAP (S0169) PO SCH (09:28)
[2022-07-11] MEDS: TICAGRELOR 90 MG TABLET (BRILINTA) PO SCH ×2 (09:28→20:14)
[2022-07-11] MEDS: SENOKOT S TAB PO SCH ×2 (09:28→20:14)
[2022-07-11] MEDS: PANTOPRAZOLE 40MG VIAL IV SCH (09:28)
[2022-07-11] MEDS: FINASTERIDE 5MG TAB PO SCH (09:28)
[2022-07-11] MEDS: ASPIRIN 81 MG CHEW TABLET PO SCH (09:28)
[2022-07-11] MEDS: TORSEMIDE 20 MG TAB PO SCH (13:46)
[2022-07-11 15:00] VITALS: BP 142/86
[2022-07-11 20:00] VITALS: BP 147/86
[2022-07-12] MEDS: LEVOTHYROXINE 100MCG TABLET (0.1MG) PO SCH (05:43)
[2022-07-12] MEDS: LEVOTHYROXINE 75MCG TABLET (0.075MG) PO SCH (05:43)
[2022-07-12] MEDS: HEPARIN SOD (PORCINE) 5000UNITS/ML 1ML VIAL/SYRINGE SC SCH ×3 (05:44→22:10)
[2022-07-12 05:49] VITALS: BP 108/61
[2022-07-12 06:00] VITALS: BP 108/61
[2022-07-12 06:13] LABS: HEMATOCRIT 30.8 % (42.0-52.0); HEMOGLOBIN 9.4 g/dl (13.5-17.5); MEAN CORPUSCULAR HEMOGLOBIN 29.7 pg (27.0-33.0); MEAN CORPUSCULAR HGB CONC 30.5 g/dl (32.0-36.5); MEAN CORPUSCULAR VOLUME 97.5 fl (80.0-96.0); PLATELET COUNT, AUTOMATED 330 10^3/uL (150-450); RED BLOOD COUNT 3.16 10^6/uL (4.30-6.10); WHITE BLOOD COUNT 9.3 10^3/uL (4.0-10.0)
[2022-07-12 06:47] LABS: ALBUMIN 2.7 GM/DL (3.2-5.2); BILIRUBIN,TOTAL 0.3 MG/DL (0.2-1.0); CALCIUM LEVEL 8.3 MG/DL (8.8-10.2); CREATININE FOR GFR 3.51 MG/DL (0.70-1.30); GLOMERULAR FILTRATION RATE 17.9 (>35); POTASSIUM SERUM 4.4 MEQ/L (3.5-5.1); TOTAL PROTEIN 5.8 GM/DL (6.4-8.2)
[2022-07-12] MEDS: TORSEMIDE 20 MG TAB PO SCH (08:35)
[2022-07-12] MEDS: SENOKOT S TAB PO SCH ×2 (08:35→22:21)
[2022-07-12] MEDS: ceFAZolin SOD 1 GM in D5W MINI-BAG PLUS 50 ML IV SCH ×2 (08:35→22:10)
[2022-07-12] MEDS: TICAGRELOR 90 MG TABLET (BRILINTA) PO SCH ×2 (08:35→22:09)
[2022-07-12] MEDS: CALCITRIOL 0.25 MCG CAP (S0169) PO SCH (08:35)
[2022-07-12] MEDS: ASPIRIN 81 MG CHEW TABLET PO SCH (08:35)
[2022-07-12] MEDS: FINASTERIDE 5MG TAB PO SCH (08:35)
[2022-07-12] MEDS: PANTOPRAZOLE 40MG VIAL IV SCH (08:35)
[2022-07-12] MEDS: INSULIN LISPRO (NovoLOG) PER UNIT SC SCH ×4 (08:36→22:10)
[2022-07-12] MEDS ORDERED: LEVEMIR (INSULIN DETEMIR) 1 UNITS/0.01ML SC ONE (13:00)
[2022-07-13 06:00] VITALS: BP 84/56
[2022-07-13] MEDS: HEPARIN SOD (PORCINE) 5000UNITS/ML 1ML VIAL/SYRINGE SC SCH ×3 (06:31→21:10)
[2022-07-13] MEDS: LEVOTHYROXINE 100MCG TABLET (0.1MG) PO SCH (06:31)
[2022-07-13] MEDS: LEVOTHYROXINE 75MCG TABLET (0.075MG) PO SCH (06:31)
[2022-07-13] MEDS: MIDODRINE 5 MG TAB PO SCH ×3 (07:28→15:31)
[2022-07-13 08:45] VITALS: BP 93/49
[2022-07-13] MEDS: TORSEMIDE 20 MG TAB PO SCH (09:00)
[2022-07-13] MEDS: ceFAZolin SOD 1 GM in D5W MINI-BAG PLUS 50 ML IV SCH ×2 (09:03→21:09)
[2022-07-13] MEDS: INSULIN LISPRO (NovoLOG) PER UNIT SC SCH ×4 (09:04→20:56)
[2022-07-13] MEDS: FINASTERIDE 5MG TAB PO SCH (09:05)
[2022-07-13] MEDS: ASPIRIN 81 MG CHEW TABLET PO SCH (09:05)
[2022-07-13] MEDS: TICAGRELOR 90 MG TABLET (BRILINTA) PO SCH ×2 (09:05→21:09)
[2022-07-13] MEDS: LEVEMIR (INSULIN DETEMIR) 1 UNITS/0.01ML SC SCH (09:05)
[2022-07-13] MEDS: CALCITRIOL 0.25 MCG CAP (S0169) PO SCH (09:06)
[2022-07-13] MEDS: SENOKOT S TAB PO SCH ×2 (09:06→21:09)
[2022-07-13] MEDS ORDERED: SODIUM CHLORIDE 0.9% 1000ML IV ONE ×2 (09:15→15:50)
[2022-07-13] MEDS: PANTOPRAZOLE 40MG TAB (PROTONIX) PO SCH (09:34)
[2022-07-13 10:53] VITALS: BP 130/76
[2022-07-13 15:34] VITALS: BP 88/47
[2022-07-13 17:35] VITALS: BP 116/61
[2022-07-13 17:43] LABS: ALBUMIN 2.9 GM/DL (3.2-5.2); BILIRUBIN,TOTAL 0.2 MG/DL (0.2-1.0); C REACTIVE PROTEIN QUANTITATIV 1.22 MG/DL (0.00-0.30); CALCIUM LEVEL 8.6 MG/DL (8.8-10.2); CREATININE FOR GFR 3.86 MG/DL (0.70-1.30); GLOMERULAR FILTRATION RATE 16.1 (>35); POTASSIUM SERUM 4.8 MEQ/L (3.5-5.1); TOTAL PROTEIN 6.8 GM/DL (6.4-8.2)
[2022-07-14] MEDS ORDERED: COSYNTROPIN 0.25 MG/ML VIAL (J0834 PER 0.25MG) IV ONE (05:00)
[2022-07-14 05:23] LABS: BASO % 0.3 % (0.0-1.0); EOS # 0.3 10^3/uL (0.0-0.5); EOS % 4.1 % (0.0-3.0); HEMATOCRIT 32.1 % (42.0-52.0); LYMPH % 15.2 % (24.0-44.0); MEAN CORPUSCULAR HGB CONC 31.2 g/dl (32.0-36.5); MEAN CORPUSCULAR VOLUME 96.4 fl (80.0-96.0); MONO # 0.8 10^3/uL (0.0-0.8); MONO % 11.8 % (2.0-8.0); NEUTROPHILS # 4.5 10^3/uL (1.5-8.5); NEUTROPHILS % 68.1 % (36.0-66.0); PLATELET COUNT, AUTOMATED 300 10^3/uL (150-450); RED BLOOD COUNT 3.33 10^6/uL (4.30-6.10); WHITE BLOOD COUNT 6.6 10^3/uL (4.0-10.0)
[2022-07-14] MEDS: HEPARIN SOD (PORCINE) 5000UNITS/ML 1ML VIAL/SYRINGE SC SCH ×3 (05:33→21:13)
[2022-07-14] MEDS: LEVOTHYROXINE 75MCG TABLET (0.075MG) PO SCH (05:33)
[2022-07-14] MEDS: LEVOTHYROXINE 100MCG TABLET (0.1MG) PO SCH (05:33)
[2022-07-14 05:56] LABS: ALBUMIN 2.6 GM/DL (3.2-5.2); CALCIUM LEVEL 8.5 MG/DL (8.8-10.2); CREATININE FOR GFR 3.53 MG/DL (0.70-1.30); GLOMERULAR FILTRATION RATE 17.8 (>35); MAGNESIUM LEVEL 2.5 MG/DL (1.8-2.4); PHOSPHORUS LEVEL 3.3 MG/DL (2.5-4.9); POTASSIUM SERUM 4.2 MEQ/L (3.5-5.1)
[2022-07-14 06:00] VITALS: BP 146/89
[2022-07-14] MEDS: SENOKOT S TAB PO SCH ×2 (08:29→20:14)
[2022-07-14] MEDS: CALCITRIOL 0.25 MCG CAP (S0169) PO SCH (08:29)
[2022-07-14] MEDS: FINASTERIDE 5MG TAB PO SCH (08:29)
[2022-07-14] MEDS: PANTOPRAZOLE 40MG TAB (PROTONIX) PO SCH (08:29)
[2022-07-14] MEDS: ASPIRIN 81 MG CHEW TABLET PO SCH (08:29)
[2022-07-14] MEDS: ceFAZolin SOD 1 GM in D5W MINI-BAG PLUS 50 ML IV SCH ×2 (08:30→20:14)
[2022-07-14] MEDS: MIDODRINE 5 MG TAB PO SCH ×3 (08:30→16:00)
[2022-07-14] MEDS: INSULIN LISPRO (NovoLOG) PER UNIT SC SCH ×4 (08:30→21:13)
[2022-07-14] MEDS: LEVEMIR (INSULIN DETEMIR) 1 UNITS/0.01ML SC SCH (08:30)
[2022-07-14] MEDS: TICAGRELOR 90 MG TABLET (BRILINTA) PO SCH ×2 (08:31→20:14)
[2022-07-14 12:30] VITALS: BP 146/85
[2022-07-14 22:00] VITALS: BP 142/78
[2022-07-15] MEDS: LEVOTHYROXINE 100MCG TABLET (0.1MG) PO SCH (05:48)
[2022-07-15] MEDS: HEPARIN SOD (PORCINE) 5000UNITS/ML 1ML VIAL/SYRINGE SC SCH ×3 (05:48→21:19)
[2022-07-15] MEDS: LEVOTHYROXINE 75MCG TABLET (0.075MG) PO SCH (05:48)
[2022-07-15 06:00] VITALS: BP 140/75
[2022-07-15] MEDS: MIDODRINE 5 MG TAB PO SCH ×3 (08:00→16:00)
[2022-07-15] MEDS: SENOKOT S TAB PO SCH ×2 (08:13→21:18)
[2022-07-15] MEDS: ceFAZolin SOD 1 GM in D5W MINI-BAG PLUS 50 ML IV SCH ×2 (08:13→21:19)
[2022-07-15] MEDS: FINASTERIDE 5MG TAB PO SCH (08:13)
[2022-07-15] MEDS: INSULIN LISPRO (NovoLOG) PER UNIT SC SCH ×4 (08:13→20:37)
[2022-07-15] MEDS: LEVEMIR (INSULIN DETEMIR) 1 UNITS/0.01ML SC SCH (08:13)
[2022-07-15] MEDS: PANTOPRAZOLE 40MG TAB (PROTONIX) PO SCH (08:14)
[2022-07-15] MEDS: ASPIRIN 81 MG CHEW TABLET PO SCH (08:14)
[2022-07-15] MEDS: TICAGRELOR 90 MG TABLET (BRILINTA) PO SCH ×2 (08:14→21:18)
[2022-07-15] MEDS: CALCITRIOL 0.25 MCG CAP (S0169) PO SCH (08:14)
[2022-07-15] MEDS: TORSEMIDE 20 MG TAB PO SCH (11:41)
[2022-07-15 14:00] VITALS: BP_SYST 100; BP_SYST 132; BP_DIAS 50
[2022-07-16] MEDS: HEPARIN SOD (PORCINE) 5000UNITS/ML 1ML VIAL/SYRINGE SC SCH ×3 (05:56→21:13)
[2022-07-16] MEDS: LEVOTHYROXINE 100MCG TABLET (0.1MG) PO SCH (05:56)
[2022-07-16] MEDS: LEVOTHYROXINE 75MCG TABLET (0.075MG) PO SCH (05:56)
[2022-07-16 06:40] VITALS: BP 139/80
[2022-07-16] MEDS: MIDODRINE 5 MG TAB PO SCH ×3 (08:00→16:00)
[2022-07-16] MEDS: LEVEMIR (INSULIN DETEMIR) 1 UNITS/0.01ML SC SCH (09:03)
[2022-07-16] MEDS: TORSEMIDE 20 MG TAB PO SCH (09:04)
[2022-07-16] MEDS: INSULIN LISPRO (NovoLOG) PER UNIT SC SCH ×4 (09:04→21:00)
[2022-07-16] MEDS: FINASTERIDE 5MG TAB PO SCH (09:04)
[2022-07-16] MEDS: PANTOPRAZOLE 40MG TAB (PROTONIX) PO SCH (09:04)
[2022-07-16] MEDS: ASPIRIN 81 MG CHEW TABLET PO SCH (09:04)
[2022-07-16] MEDS: TICAGRELOR 90 MG TABLET (BRILINTA) PO SCH ×2 (09:04→21:13)
[2022-07-16] MEDS: CALCITRIOL 0.25 MCG CAP (S0169) PO SCH (09:04)
[2022-07-16] MEDS: SENOKOT S TAB PO SCH ×2 (09:04→21:12)
[2022-07-16] MEDS: ceFAZolin SOD 1 GM in D5W MINI-BAG PLUS 50 ML IV SCH ×2 (09:05→21:13)
[2022-07-16] MEDS: MOM 30ML SUSPENSION UDC PO PRN (13:11)
[2022-07-17] MEDS: LEVOTHYROXINE 100MCG TABLET (0.1MG) PO SCH (05:36)
[2022-07-17] MEDS: LEVOTHYROXINE 75MCG TABLET (0.075MG) PO SCH (05:36)
[2022-07-17] MEDS: HEPARIN SOD (PORCINE) 5000UNITS/ML 1ML VIAL/SYRINGE SC SCH ×3 (05:36→21:11)
[2022-07-17 05:39] VITALS: BP 158/80
[2022-07-17 06:43] LABS: BASO % 0.6 % (0.0-1.0); EOS # 0.3 10^3/uL (0.0-0.5); EOS % 6.3 % (0.0-3.0); HEMATOCRIT 33.8 % (42.0-52.0); HEMOGLOBIN 10.4 g/dl (13.5-17.5); LYMPH # 0.9 10^3/uL (1.5-5.0); LYMPH % 16.6 % (24.0-44.0); MEAN CORPUSCULAR HEMOGLOBIN 30.1 pg (27.0-33.0); MEAN CORPUSCULAR HGB CONC 30.8 g/dl (32.0-36.5); MEAN CORPUSCULAR VOLUME 97.7 fl (80.0-96.0); MONO # 0.7 10^3/uL (0.0-0.8); NEUTROPHILS # 3.5 10^3/uL (1.5-8.5); NEUTROPHILS % 64.3 % (36.0-66.0); PLATELET COUNT, AUTOMATED 269 10^3/uL (150-450); RED BLOOD COUNT 3.46 10^6/uL (4.30-6.10); WHITE BLOOD COUNT 5.4 10^3/uL (4.0-10.0)
[2022-07-17 07:10] LABS: ALBUMIN 2.8 GM/DL (3.2-5.2); CALCIUM LEVEL 8.5 MG/DL (8.8-10.2); CREATININE FOR GFR 3.21 MG/DL (0.70-1.30); GLOMERULAR FILTRATION RATE 19.9 (>35); MAGNESIUM LEVEL 2.6 MG/DL (1.8-2.4); PHOSPHORUS LEVEL 3.1 MG/DL (2.5-4.9); POTASSIUM SERUM 4.3 MEQ/L (3.5-5.1)
[2022-07-17] MEDS: MIDODRINE 5 MG TAB PO SCH ×3 (08:00→16:00)
[2022-07-17] MEDS: ceFAZolin SOD 1 GM in D5W MINI-BAG PLUS 50 ML IV SCH ×2 (08:23→21:11)
[2022-07-17] MEDS: LEVEMIR (INSULIN DETEMIR) 1 UNITS/0.01ML SC SCH (08:23)
[2022-07-17] MEDS: SENOKOT S TAB PO SCH ×2 (08:24→21:10)
[2022-07-17] MEDS: INSULIN LISPRO (NovoLOG) PER UNIT SC SCH ×4 (08:24→21:11)
[2022-07-17] MEDS: PANTOPRAZOLE 40MG TAB (PROTONIX) PO SCH (08:24)
[2022-07-17] MEDS: ASPIRIN 81 MG CHEW TABLET PO SCH (08:24)
[2022-07-17] MEDS: TICAGRELOR 90 MG TABLET (BRILINTA) PO SCH ×2 (08:24→21:12)
[2022-07-17] MEDS: CALCITRIOL 0.25 MCG CAP (S0169) PO SCH (08:24)
[2022-07-17] MEDS: TORSEMIDE 20 MG TAB PO SCH (08:24)
[2022-07-17] MEDS: FINASTERIDE 5MG TAB PO SCH (08:24)
[2022-07-17] MEDS: DARBEPOETIN 100 MCG/0.5 ML *NON-DIALYSIS* SYRINGE (J0881) SC SCH (13:13)
[2022-07-18 05:10] VITALS: BP 142/64
[2022-07-18] MEDS: LEVOTHYROXINE 100MCG TABLET (0.1MG) PO SCH (05:48)
[2022-07-18] MEDS: LEVOTHYROXINE 75MCG TABLET (0.075MG) PO SCH (05:48)
[2022-07-18] MEDS: HEPARIN SOD (PORCINE) 5000UNITS/ML 1ML VIAL/SYRINGE SC SCH ×3 (05:49→23:44)
[2022-07-18] MEDS: INSULIN LISPRO (NovoLOG) PER UNIT SC SCH ×4 (08:19→21:00)
[2022-07-18] MEDS: LEVEMIR (INSULIN DETEMIR) 1 UNITS/0.01ML SC SCH (08:19)
[2022-07-18] MEDS: SENOKOT S TAB PO SCH ×2 (08:21→19:59)
[2022-07-18] MEDS: TORSEMIDE 20 MG TAB PO SCH (08:21)
[2022-07-18] MEDS: FINASTERIDE 5MG TAB PO SCH (08:21)
[2022-07-18] MEDS: ASPIRIN 81 MG CHEW TABLET PO SCH (08:21)
[2022-07-18] MEDS: TICAGRELOR 90 MG TABLET (BRILINTA) PO SCH ×2 (08:22→19:59)
[2022-07-18] MEDS: CALCITRIOL 0.25 MCG CAP (S0169) PO SCH (08:22)
[2022-07-18] MEDS: PANTOPRAZOLE 40MG TAB (PROTONIX) PO SCH (08:22)
[2022-07-18] MEDS: MIDODRINE 5 MG TAB PO SCH ×3 (08:22→16:00)
[2022-07-18] MEDS: ceFAZolin SOD 1 GM in D5W MINI-BAG PLUS 50 ML IV SCH ×2 (08:23→19:58)
[2022-07-18 16:51] VITALS: BP 129/83
[2022-07-19 04:50] VITALS: BP 98/62
[2022-07-19] MEDS: LEVOTHYROXINE 75MCG TABLET (0.075MG) PO SCH (06:56)
[2022-07-19] MEDS: HEPARIN SOD (PORCINE) 5000UNITS/ML 1ML VIAL/SYRINGE SC SCH ×3 (06:56→22:19)
[2022-07-19] MEDS: LEVOTHYROXINE 100MCG TABLET (0.1MG) PO SCH (06:56)
[2022-07-19] MEDS: INSULIN LISPRO (NovoLOG) PER UNIT SC SCH ×4 (07:56→21:00)
[2022-07-19] MEDS: MIDODRINE 5 MG TAB PO SCH ×3 (07:57→16:24)
[2022-07-19] MEDS: LEVEMIR (INSULIN DETEMIR) 1 UNITS/0.01ML SC SCH (07:59)
[2022-07-19] MEDS: TICAGRELOR 90 MG TABLET (BRILINTA) PO SCH ×2 (07:59→19:54)
[2022-07-19] MEDS: ASPIRIN 81 MG CHEW TABLET PO SCH (08:00)
[2022-07-19] MEDS: PANTOPRAZOLE 40MG TAB (PROTONIX) PO SCH (08:00)
[2022-07-19] MEDS: CALCITRIOL 0.25 MCG CAP (S0169) PO SCH (08:00)
[2022-07-19] MEDS: FINASTERIDE 5MG TAB PO SCH (08:00)
[2022-07-19] MEDS: ceFAZolin SOD 1 GM in D5W MINI-BAG PLUS 50 ML IV SCH ×2 (08:01→19:53)
[2022-07-19] MEDS: SENOKOT S TAB PO SCH ×2 (08:01→19:53)
[2022-07-19] MEDS: TORSEMIDE 20 MG TAB PO SCH (08:01)
[2022-07-19 13:47] VITALS: BP 110/76
[2022-07-20] MEDS: HEPARIN SOD (PORCINE) 5000UNITS/ML 1ML VIAL/SYRINGE SC SCH ×3 (05:50→21:15)
[2022-07-20] MEDS: LEVOTHYROXINE 75MCG TABLET (0.075MG) PO SCH (05:50)
[2022-07-20] MEDS: LEVOTHYROXINE 100MCG TABLET (0.1MG) PO SCH (05:50)
[2022-07-20] MEDS: INSULIN LISPRO (NovoLOG) PER UNIT SC SCH ×4 (07:39→21:00)
[2022-07-20] MEDS: ASPIRIN 81 MG CHEW TABLET PO SCH (09:47)
[2022-07-20] MEDS: MIDODRINE 5 MG TAB PO SCH ×3 (09:47→17:13)
[2022-07-20] MEDS: CALCITRIOL 0.25 MCG CAP (S0169) PO SCH (09:47)
[2022-07-20] MEDS: PANTOPRAZOLE 40MG TAB (PROTONIX) PO SCH (09:47)
[2022-07-20] MEDS: SENOKOT S TAB PO SCH ×2 (09:47→21:15)
[2022-07-20] MEDS: TICAGRELOR 90 MG TABLET (BRILINTA) PO SCH ×2 (09:47→21:15)
[2022-07-20] MEDS: FINASTERIDE 5MG TAB PO SCH (09:47)
[2022-07-20] MEDS: TORSEMIDE 20 MG TAB PO SCH (09:48)
[2022-07-20] MEDS: LEVEMIR (INSULIN DETEMIR) 1 UNITS/0.01ML SC SCH (09:49)
[2022-07-20] MEDS: ceFAZolin SOD 1 GM in D5W MINI-BAG PLUS 50 ML IV SCH ×2 (09:50→21:15)
[2022-07-20 13:00] VITALS: BP 118/68
[2022-07-20 17:12] VITALS: BP 111/73
[2022-07-21] MEDS: HEPARIN SOD (PORCINE) 5000UNITS/ML 1ML VIAL/SYRINGE SC SCH ×3 (05:36→20:35)
[2022-07-21] MEDS: LEVOTHYROXINE 100MCG TABLET (0.1MG) PO SCH (05:36)
[2022-07-21] MEDS: LEVOTHYROXINE 75MCG TABLET (0.075MG) PO SCH (05:36)
[2022-07-21 06:00] VITALS: BP 146/90
[2022-07-21] MEDS: MIDODRINE 5 MG TAB PO SCH ×3 (08:13→16:00)
[2022-07-21] MEDS: CALCITRIOL 0.25 MCG CAP (S0169) PO SCH (08:13)
[2022-07-21] MEDS: TORSEMIDE 20 MG TAB PO SCH (08:13)
[2022-07-21] MEDS: ASPIRIN 81 MG CHEW TABLET PO SCH (08:13)
[2022-07-21] MEDS: INSULIN LISPRO (NovoLOG) PER UNIT SC SCH ×4 (08:14→21:00)
[2022-07-21] MEDS: LEVEMIR (INSULIN DETEMIR) 1 UNITS/0.01ML SC SCH (08:14)
[2022-07-21] MEDS: PANTOPRAZOLE 40MG TAB (PROTONIX) PO SCH (08:14)
[2022-07-21] MEDS: SENOKOT S TAB PO SCH ×2 (08:14→21:54)
[2022-07-21] MEDS: FINASTERIDE 5MG TAB PO SCH (08:14)
[2022-07-21] MEDS: ceFAZolin SOD 1 GM in D5W MINI-BAG PLUS 50 ML IV SCH ×2 (08:14→21:54)
[2022-07-21] MEDS: TICAGRELOR 90 MG TABLET (BRILINTA) PO SCH ×2 (08:15→21:00)
[2022-07-21 16:24] VITALS: BP 138/88
[2022-07-21 18:40] VITALS: BP 160/82
[2022-07-21 19:01] LABS: HEMATOCRIT 40.3 % (42.0-52.0); HEMOGLOBIN 12.3 g/dl (13.5-17.5)
[2022-07-21 22:00] VITALS: BP 128/69
[2022-07-21] MEDS ORDERED: TAMSULOSIN 0.4 MG CAP PO ONE (22:35)
[2022-07-22] VITALS (9 sets, daily range): BP systolic 72–132; BP diastolic 40–83
[2022-07-22 00:19] LABS: HEMOGLOBIN 11.2 g/dl (13.5-17.5)
[2022-07-22] MEDS: HEPARIN SOD (PORCINE) 5000UNITS/ML 1ML VIAL/SYRINGE SC SCH (05:17)
[2022-07-22] MEDS: LEVOTHYROXINE 75MCG TABLET (0.075MG) PO SCH (05:23)
[2022-07-22] MEDS: LEVOTHYROXINE 100MCG TABLET (0.1MG) PO SCH (05:23)
[2022-07-22 06:31] LABS: HEMATOCRIT 34.2 % (42.0-52.0); HEMOGLOBIN 10.6 g/dl (13.5-17.5)
[2022-07-22 07:01] LABS: CALCIUM LEVEL 8.5 MG/DL (8.8-10.2); CREATININE FOR GFR 3.55 MG/DL (0.70-1.30); GLOMERULAR FILTRATION RATE 17.7 (>35); POTASSIUM SERUM 4.3 MEQ/L (3.5-5.1)
[2022-07-22] MEDS: MIDODRINE 5 MG TAB PO SCH ×4 (08:00→17:29)
[2022-07-22] MEDS: TICAGRELOR 90 MG TABLET (BRILINTA) PO SCH (08:19)
[2022-07-22] MEDS: INSULIN LISPRO (NovoLOG) PER UNIT SC SCH ×4 (08:42→21:00)
[2022-07-22] MEDS: TAMSULOSIN 0.4 MG CAP PO SCH (08:43)
[2022-07-22] MEDS: PANTOPRAZOLE 40MG TAB (PROTONIX) PO SCH (08:43)
[2022-07-22] MEDS: CALCITRIOL 0.25 MCG CAP (S0169) PO SCH (08:43)
[2022-07-22] MEDS: LEVEMIR (INSULIN DETEMIR) 1 UNITS/0.01ML SC SCH (08:43)
[2022-07-22] MEDS: FINASTERIDE 5MG TAB PO SCH (08:43)
[2022-07-22] MEDS: ceFAZolin SOD 1 GM in D5W MINI-BAG PLUS 50 ML IV SCH ×2 (08:43→21:07)
[2022-07-22] MEDS: TORSEMIDE 20 MG TAB PO SCH (08:43)
[2022-07-22] MEDS: SENOKOT S TAB PO SCH ×2 (08:43→21:08)
[2022-07-22] MEDS: METOPROLOL TART 12.5 MG PER 1/2 TAB PO SCH ×3 (09:42→17:30)
[2022-07-22] MEDS ORDERED: NS 500 ML IV ONE (09:45)
[2022-07-22 12:28] LABS: HEMATOCRIT 32.9 % (42.0-52.0); HEMOGLOBIN 10.2 g/dl (13.5-17.5)
[2022-07-22 18:29] LABS: HEMATOCRIT 34.2 % (42.0-52.0); HEMOGLOBIN 10.5 g/dl (13.5-17.5)
[2022-07-23 01:02] LABS: HEMATOCRIT 28.5 % (42.0-52.0)
[2022-07-23 04:40] VITALS: BP 114/77
[2022-07-23] MEDS: METOPROLOL TART 25 MG TABLET PO SCH ×4 (06:00→18:00)
[2022-07-23] MEDS: LEVOTHYROXINE 100MCG TABLET (0.1MG) PO SCH (06:39)
[2022-07-23] MEDS: LEVOTHYROXINE 75MCG TABLET (0.075MG) PO SCH (06:39)
[2022-07-23 06:59] LABS: HEMATOCRIT 29.5 % (42.0-52.0); HEMOGLOBIN 9.3 g/dl (13.5-17.5)
[2022-07-23] MEDS: LEVEMIR (INSULIN DETEMIR) 1 UNITS/0.01ML SC SCH (07:45)
[2022-07-23] MEDS: FINASTERIDE 5MG TAB PO SCH (08:01)
[2022-07-23] MEDS: MIDODRINE 5 MG TAB PO SCH ×3 (08:01→16:00)
[2022-07-23] MEDS: INSULIN LISPRO (NovoLOG) PER UNIT SC SCH ×4 (08:01→21:00)
[2022-07-23] MEDS: PANTOPRAZOLE 40MG TAB (PROTONIX) PO SCH (08:02)
[2022-07-23] MEDS: TORSEMIDE 20 MG TAB PO SCH (08:02)
[2022-07-23] MEDS: CALCITRIOL 0.25 MCG CAP (S0169) PO SCH (08:02)
[2022-07-23] MEDS: SENOKOT S TAB PO SCH ×2 (08:02→21:07)
[2022-07-23] MEDS: TAMSULOSIN 0.4 MG CAP PO SCH (08:02)
[2022-07-23] MEDS: ceFAZolin SOD 1 GM in D5W MINI-BAG PLUS 50 ML IV SCH (08:04)
[2022-07-23 12:38] LABS: HEMATOCRIT 36.2 % (42.0-52.0)
[2022-07-23 14:00] VITALS: BP 128/85
[2022-07-23] MEDS ORDERED: ACETAMINOPHEN TAB 650MG DOSE (2X325MG) PO PRN (16:30)
[2022-07-23] MEDS: PIPERACILLIN/TAZOBACTAM SOD 2.25 GM in D5W MINI-BAG PLUS 50 ML IV SCH (18:22)
[2022-07-23 18:41] LABS: BASO % 0.2 % (0.0-1.0); BASO % 0.3 % (0.0-1.0); EOS # 0.1 10^3/uL (0.0-0.5); EOS % 0.6 % (0.0-3.0); HEMATOCRIT 34.2 % (42.0-52.0); HEMATOCRIT 34.3 % (42.0-52.0); HEMOGLOBIN 10.6 g/dl (13.5-17.5); LYMPH # 0.4 10^3/uL (1.5-5.0); LYMPH # 0.5 10^3/uL (1.5-5.0); LYMPH % 3.7 % (24.0-44.0); LYMPH % 4.2 % (24.0-44.0); MEAN CORPUSCULAR HEMOGLOBIN 30.8 pg (27.0-33.0); MEAN CORPUSCULAR HEMOGLOBIN 31.1 pg (27.0-33.0); MEAN CORPUSCULAR HGB CONC 30.9 g/dl (32.0-36.5); MEAN CORPUSCULAR VOLUME 100.3 fl (80.0-96.0); MEAN CORPUSCULAR VOLUME 99.7 fl (80.0-96.0); MONO # 0.7 10^3/uL (0.0-0.8); MONO # 0.8 10^3/uL (0.0-0.8); MONO % 6.3 % (2.0-8.0); MONO % 6.5 % (2.0-8.0); NEUTROPHILS # 10.2 10^3/uL (1.5-8.5); NEUTROPHILS # 10.4 10^3/uL (1.5-8.5); NEUTROPHILS % 88.4 % (36.0-66.0); NEUTROPHILS % 88.5 % (36.0-66.0); PLATELET COUNT, AUTOMATED 299 10^3/uL (150-450); PLATELET COUNT, AUTOMATED 310 10^3/uL (150-450); RED BLOOD COUNT 3.41 10^6/uL (4.30-6.10); RED BLOOD COUNT 3.44 10^6/uL (4.30-6.10); WHITE BLOOD COUNT 11.5 10^3/uL (4.0-10.0); WHITE BLOOD COUNT 11.8 10^3/uL (4.0-10.0)
[2022-07-23 19:12] LABS: ERYTHROCYTE SEDIMENTATION RATE 28 mm/hr (0-20)
[2022-07-23 19:13] LABS: ALBUMIN 3.1 GM/DL (3.2-5.2); ALT/SGPT < 6 U/L (12-78); BILIRUBIN,TOTAL 0.4 MG/DL (0.2-1.0); BLOOD UREA NITROGEN 65 MG/DL (7-18); C REACTIVE PROTEIN QUANTITATIV 5.14 MG/DL (0.00-0.30); CALCIUM LEVEL 8.8 MG/DL (8.8-10.2); CARBON DIOXIDE LEVEL 27 MEQ/L (21-32); CHLORIDE LEVEL 96 MEQ/L (98-107); CREATININE FOR GFR 3.66 MG/DL (0.70-1.30); GLOMERULAR FILTRATION RATE 17.1 (>35); GLUCOSE, FASTING 229 MG/DL (70-100); POTASSIUM SERUM 4.5 MEQ/L (3.5-5.1); SODIUM LEVEL 132 MEQ/L (136-145); TOTAL PROTEIN 6.5 GM/DL (6.4-8.2)
[2022-07-23 20:40] VITALS: BP 106/62
[2022-07-24] MEDS: PIPERACILLIN/TAZOBACTAM SOD 2.25 GM in D5W MINI-BAG PLUS 50 ML IV SCH ×3 (01:19→18:17)
[2022-07-24 01:20] VITALS: BP 130/80
[2022-07-24] MEDS: METOPROLOL TART 25 MG TABLET PO SCH ×3 (01:31→06:00)
[2022-07-24 05:00] VITALS: BP 107/71
[2022-07-24] MEDS: LEVOTHYROXINE 75MCG TABLET (0.075MG) PO SCH (06:19)
[2022-07-24] MEDS: LEVOTHYROXINE 100MCG TABLET (0.1MG) PO SCH (06:19)
[2022-07-24 06:34] LABS: BASO % 0.4 % (0.0-1.0); EOS # 0.3 10^3/uL (0.0-0.5); EOS % 3.5 % (0.0-3.0); HEMATOCRIT 29.1 % (42.0-52.0); HEMOGLOBIN 9.2 g/dl (13.5-17.5); LYMPH # 0.6 10^3/uL (1.5-5.0); LYMPH % 7.9 % (24.0-44.0); MEAN CORPUSCULAR HEMOGLOBIN 31.1 pg (27.0-33.0); MEAN CORPUSCULAR HGB CONC 31.6 g/dl (32.0-36.5); MEAN CORPUSCULAR VOLUME 98.3 fl (80.0-96.0); MONO # 0.6 10^3/uL (0.0-0.8); MONO % 7.3 % (2.0-8.0); NEUTROPHILS # 6.5 10^3/uL (1.5-8.5); NEUTROPHILS % 80.4 % (36.0-66.0); PLATELET COUNT, AUTOMATED 237 10^3/uL (150-450); RED BLOOD COUNT 2.96 10^6/uL (4.30-6.10); WHITE BLOOD COUNT 8.1 10^3/uL (4.0-10.0)
[2022-07-24 07:04] LABS: CALCIUM LEVEL 8.3 MG/DL (8.8-10.2); CREATININE FOR GFR 3.79 MG/DL (0.70-1.30); GLOMERULAR FILTRATION RATE 16.4 (>35); POTASSIUM SERUM 4.1 MEQ/L (3.5-5.1)
[2022-07-24] MEDS: INSULIN LISPRO (NovoLOG) PER UNIT SC SCH ×4 (07:47→20:11)
[2022-07-24] MEDS: TORSEMIDE 20 MG TAB PO SCH (09:00)
[2022-07-24] MEDS: SENOKOT S TAB PO SCH ×2 (09:00→20:11)
[2022-07-24] MEDS: MIDODRINE 5 MG TAB PO SCH ×3 (09:11→18:18)
[2022-07-24 09:12] VITALS: BP 77/48
[2022-07-24] MEDS: PANTOPRAZOLE 40MG TAB (PROTONIX) PO SCH (09:13)
[2022-07-24] MEDS: CALCITRIOL 0.25 MCG CAP (S0169) PO SCH (09:13)
[2022-07-24] MEDS: FINASTERIDE 5MG TAB PO SCH (09:13)
[2022-07-24] MEDS: TAMSULOSIN 0.4 MG CAP PO SCH (09:13)
[2022-07-24] MEDS: LEVEMIR (INSULIN DETEMIR) 1 UNITS/0.01ML SC SCH (09:14)
[2022-07-24] MEDS: DARBEPOETIN 100 MCG/0.5 ML *NON-DIALYSIS* SYRINGE (J0881) SC SCH (13:35)
[2022-07-24 13:37] VITALS: BP 90/54
[2022-07-24 14:00] VITALS: BP 90/54
[2022-07-24 19:36] VITALS: BP 93/54
[2022-07-24] MEDS ORDERED: APIXABAN 2.5 MG TAB (ELIQUIS) PO ONE (21:00)
[2022-07-25 02:18] VITALS: BP 136/80
[2022-07-25] MEDS: PIPERACILLIN/TAZOBACTAM SOD 2.25 GM in D5W MINI-BAG PLUS 50 ML IV SCH (02:18)
[2022-07-25] MEDS: LEVOTHYROXINE 100MCG TABLET (0.1MG) PO SCH (05:54)
[2022-07-25] MEDS: LEVOTHYROXINE 75MCG TABLET (0.075MG) PO SCH (05:54)
[2022-07-25 06:24] VITALS: BP 128/81
[2022-07-25 06:30] LABS: BASO % 0.3 % (0.0-1.0); EOS # 0.5 10^3/uL (0.0-0.5); EOS % 7.6 % (0.0-3.0); HEMATOCRIT 30.9 % (42.0-52.0); HEMOGLOBIN 9.5 g/dl (13.5-17.5); LYMPH # 0.6 10^3/uL (1.5-5.0); LYMPH % 9.1 % (24.0-44.0); MEAN CORPUSCULAR HEMOGLOBIN 30.7 pg (27.0-33.0); MEAN CORPUSCULAR HGB CONC 30.7 g/dl (32.0-36.5); MONO # 0.6 10^3/uL (0.0-0.8); MONO % 8.4 % (2.0-8.0); NEUTROPHILS # 4.9 10^3/uL (1.5-8.5); NEUTROPHILS % 74.3 % (36.0-66.0); PLATELET COUNT, AUTOMATED 259 10^3/uL (150-450); RED BLOOD COUNT 3.09 10^6/uL (4.30-6.10); WHITE BLOOD COUNT 6.6 10^3/uL (4.0-10.0)
[2022-07-25 06:52] LABS: CALCIUM LEVEL 8.1 MG/DL (8.8-10.2); CREATININE FOR GFR 3.97 MG/DL (0.70-1.30); GLOMERULAR FILTRATION RATE 15.6 (>35); POTASSIUM SERUM 4.2 MEQ/L (3.5-5.1)
[2022-07-25] MEDS: SENOKOT S TAB PO SCH ×2 (08:25→20:06)
[2022-07-25] MEDS: MIDODRINE 5 MG TAB PO SCH ×3 (08:25→14:08)
[2022-07-25] MEDS: CALCITRIOL 0.25 MCG CAP (S0169) PO SCH (08:25)
[2022-07-25] MEDS: FINASTERIDE 5MG TAB PO SCH (08:26)
[2022-07-25] MEDS: TAMSULOSIN 0.4 MG CAP PO SCH (08:26)
[2022-07-25] MEDS: LEVEMIR (INSULIN DETEMIR) 1 UNITS/0.01ML SC SCH (08:26)
[2022-07-25] MEDS: PANTOPRAZOLE 40MG TAB (PROTONIX) PO SCH (08:26)
[2022-07-25] MEDS: TORSEMIDE 20 MG TAB PO SCH (08:26)
[2022-07-25] MEDS: INSULIN LISPRO (NovoLOG) PER UNIT SC SCH ×4 (08:27→20:06)
[2022-07-25 08:28] VITALS: BP 121/70
[2022-07-25] MEDS ORDERED: METOPROLOL TART 12.5 MG PER 1/2 TAB PO ONE (09:00)
[2022-07-25] MEDS ORDERED: APIXABAN 2.5 MG TAB (ELIQUIS) PO ONE (09:00)
[2022-07-25] MEDS ORDERED: DIGOXIN 0.0625MG PER 1/2TABLET PO ONE (10:00)
[2022-07-25] MEDS ORDERED: D5W IV ONE (11:00)
[2022-07-25] MEDS ORDERED: TOBRAMYCIN SULF IV ONE (11:00)
[2022-07-25] MEDS ORDERED: [UNRECOGNIZED DRUG - REMARK] XX SCH (11:25)
[2022-07-25] MEDS ORDERED: METOPROLOL TART 25 MG TABLET PO SCH (12:00)
[2022-07-25 14:00] VITALS: BP 78/52
[2022-07-25] MEDS ORDERED: SODIUM CHLORIDE 0.9% 1000ML IV ONE (14:30)
[2022-07-25 15:31] VITALS: BP 98/60
[2022-07-25] MEDS ORDERED: METOPROLOL TART 12.5 MG PER 1/2 TAB PO SCH (18:00)
[2022-07-25 19:57] VITALS: BP 128/77
[2022-07-26] VITALS (7 sets, daily range): BP systolic 98–142; BP diastolic 58–79
[2022-07-26] MEDS: LEVOTHYROXINE 75MCG TABLET (0.075MG) PO SCH (05:42)
[2022-07-26] MEDS: LEVOTHYROXINE 100MCG TABLET (0.1MG) PO SCH (05:42)
[2022-07-26 06:04] LABS: BASO % 0.5 % (0.0-1.0); EOS # 0.5 10^3/uL (0.0-0.5); EOS % 8.2 % (0.0-3.0); HEMATOCRIT 31.8 % (42.0-52.0); LYMPH # 0.5 10^3/uL (1.5-5.0); LYMPH % 8.1 % (24.0-44.0); MEAN CORPUSCULAR HEMOGLOBIN 30.9 pg (27.0-33.0); MEAN CORPUSCULAR HGB CONC 31.4 g/dl (32.0-36.5); MEAN CORPUSCULAR VOLUME 98.1 fl (80.0-96.0); MONO # 0.6 10^3/uL (0.0-0.8); MONO % 9.8 % (2.0-8.0); NEUTROPHILS # 4.8 10^3/uL (1.5-8.5); NEUTROPHILS % 73.1 % (36.0-66.0); PLATELET COUNT, AUTOMATED 299 10^3/uL (150-450); RED BLOOD COUNT 3.24 10^6/uL (4.30-6.10); WHITE BLOOD COUNT 6.6 10^3/uL (4.0-10.0)
[2022-07-26 06:33] LABS: CALCIUM LEVEL 8.3 MG/DL (8.8-10.2); CREATININE FOR GFR 3.98 MG/DL (0.70-1.30); GLOMERULAR FILTRATION RATE 15.5 (>35); POTASSIUM SERUM 4.2 MEQ/L (3.5-5.1)
[2022-07-26] MEDS ORDERED: APIXABAN 2.5 MG TAB (ELIQUIS) PO ONE (08:10)
[2022-07-26] MEDS: TAMSULOSIN 0.4 MG CAP PO SCH (08:11)
[2022-07-26] MEDS: TORSEMIDE 20 MG TAB PO SCH (08:11)
[2022-07-26] MEDS: MIDODRINE 5 MG TAB PO SCH ×3 (08:34→16:00)
[2022-07-26] MEDS: CALCITRIOL 0.25 MCG CAP (S0169) PO SCH (08:34)
[2022-07-26] MEDS: PANTOPRAZOLE 40MG TAB (PROTONIX) PO SCH (08:34)
[2022-07-26] MEDS: SENOKOT S TAB PO SCH ×2 (08:34→19:58)
[2022-07-26] MEDS: LEVEMIR (INSULIN DETEMIR) 1 UNITS/0.01ML SC SCH (08:35)
[2022-07-26] MEDS: INSULIN LISPRO (NovoLOG) PER UNIT SC SCH ×4 (08:35→21:00)
[2022-07-26] MEDS: TRIAMCINOLONE ACET 0.1% CREAM 80 GM TOP SCH ×2 (12:11→19:59)
[2022-07-26] MEDS: FINASTERIDE 5MG TAB PO SCH (19:58)
[2022-07-27] VITALS (7 sets, daily range): BP systolic 93–132; BP diastolic 53–78
[2022-07-27] MEDS ORDERED: METOPROLOL TART 12.5 MG PER 1/2 TAB PO ONE (04:20)
[2022-07-27] MEDS: LEVOTHYROXINE 75MCG TABLET (0.075MG) PO SCH (05:52)
[2022-07-27] MEDS: LEVOTHYROXINE 100MCG TABLET (0.1MG) PO SCH (05:52)
[2022-07-27 06:02] LABS: BASO % 0.1 % (0.0-1.0); EOS # 0.4 10^3/uL (0.0-0.5); EOS % 5.5 % (0.0-3.0); HEMATOCRIT 31.8 % (42.0-52.0); HEMOGLOBIN 9.8 g/dl (13.5-17.5); LYMPH # 0.3 10^3/uL (1.5-5.0); LYMPH % 4.8 % (24.0-44.0); MEAN CORPUSCULAR HEMOGLOBIN 30.2 pg (27.0-33.0); MEAN CORPUSCULAR HGB CONC 30.8 g/dl (32.0-36.5); MEAN CORPUSCULAR VOLUME 98.1 fl (80.0-96.0); MONO # 0.6 10^3/uL (0.0-0.8); MONO % 8.5 % (2.0-8.0); NEUTROPHILS # 5.7 10^3/uL (1.5-8.5); NEUTROPHILS % 80.8 % (36.0-66.0); PLATELET COUNT, AUTOMATED 286 10^3/uL (150-450); RED BLOOD COUNT 3.24 10^6/uL (4.30-6.10); WHITE BLOOD COUNT 7.1 10^3/uL (4.0-10.0)
[2022-07-27 06:38] LABS: CALCIUM LEVEL 8.2 MG/DL (8.8-10.2); CREATININE FOR GFR 3.82 MG/DL (0.70-1.30); GLOMERULAR FILTRATION RATE 16.3 (>35); POTASSIUM SERUM 4.2 MEQ/L (3.5-5.1); TOBRAMYCIN RANDOM 1.7 MCG/ML
[2022-07-27] MEDS: INSULIN LISPRO (NovoLOG) PER UNIT SC SCH ×4 (07:07→21:00)
[2022-07-27] MEDS: TORSEMIDE 20 MG TAB PO SCH (09:00)
[2022-07-27] MEDS ORDERED: METOPROLOL TART 25 MG TABLET PO ONE (09:00)
[2022-07-27] MEDS ORDERED: DIGOXIN 0.125 MG TAB PO ONE (09:00)
[2022-07-27] MEDS: APIXABAN 2.5 MG TAB (ELIQUIS) PO SCH ×2 (10:31→20:58)
[2022-07-27] MEDS: MIDODRINE 5 MG TAB PO SCH ×3 (10:31→17:38)
[2022-07-27] MEDS: CALCITRIOL 0.25 MCG CAP (S0169) PO SCH (10:34)
[2022-07-27] MEDS: SENOKOT S TAB PO SCH ×2 (10:34→20:58)
[2022-07-27] MEDS: PANTOPRAZOLE 40MG TAB (PROTONIX) PO SCH (10:34)
[2022-07-27] MEDS: LEVEMIR (INSULIN DETEMIR) 1 UNITS/0.01ML SC SCH (10:36)
[2022-07-27] MEDS: TRIAMCINOLONE ACET 0.1% CREAM 80 GM TOP SCH ×2 (10:38→20:58)
[2022-07-27] MEDS ORDERED: COSYNTROPIN 0.25 MG/ML VIAL (J0834 PER 0.25MG) IV ONE (11:00)
[2022-07-27] MEDS: FINASTERIDE 5MG TAB PO SCH (20:58)
[2022-07-27] MEDS: MOM 30ML SUSPENSION UDC PO PRN (22:16)
[2022-07-27] MEDS: RAMELTEON 8 MG TAB (ROZEREM) PO PRN (22:42)
[2022-07-28 04:50] VITALS: BP 126/82
[2022-07-28] MEDS: LEVOTHYROXINE 75MCG TABLET (0.075MG) PO SCH (05:37)
[2022-07-28] MEDS: LEVOTHYROXINE 100MCG TABLET (0.1MG) PO SCH (05:37)
[2022-07-28 06:22] LABS: BASO % 0.2 % (0.0-1.0); EOS # 0.5 10^3/uL (0.0-0.5); HEMATOCRIT 31.7 % (42.0-52.0); HEMOGLOBIN 9.9 g/dl (13.5-17.5); LYMPH # 0.7 10^3/uL (1.5-5.0); LYMPH % 12.3 % (24.0-44.0); MEAN CORPUSCULAR HEMOGLOBIN 30.8 pg (27.0-33.0); MEAN CORPUSCULAR HGB CONC 31.2 g/dl (32.0-36.5); MEAN CORPUSCULAR VOLUME 98.8 fl (80.0-96.0); MONO # 0.5 10^3/uL (0.0-0.8); MONO % 8.1 % (2.0-8.0); NEUTROPHILS # 4.1 10^3/uL (1.5-8.5); NEUTROPHILS % 71.1 % (36.0-66.0); PLATELET COUNT, AUTOMATED 303 10^3/uL (150-450); RED BLOOD COUNT 3.21 10^6/uL (4.30-6.10); WHITE BLOOD COUNT 5.8 10^3/uL (4.0-10.0)
[2022-07-28 06:50] LABS: BLOOD UREA NITROGEN 86 MG/DL (7-18); CALCIUM LEVEL 8.4 MG/DL (8.8-10.2); CARBON DIOXIDE LEVEL 30 MEQ/L (21-32); CHLORIDE LEVEL 99 MEQ/L (98-107); CREATININE FOR GFR 3.82 MG/DL (0.70-1.30); GLOMERULAR FILTRATION RATE 16.3 (>35); GLUCOSE, FASTING 160 MG/DL (70-100); POTASSIUM SERUM 4.6 MEQ/L (3.5-5.1); SODIUM LEVEL 136 MEQ/L (136-145); VANCOMYCIN RANDOM < 0.8 UG/ML
[2022-07-28 08:14] LABS: TOBRAMYCIN RANDOM 1.2 MCG/ML
[2022-07-28] MEDS: MIDODRINE 5 MG TAB PO SCH ×3 (09:20→17:10)
[2022-07-28] MEDS: CALCITRIOL 0.25 MCG CAP (S0169) PO SCH (09:21)
[2022-07-28] MEDS: PANTOPRAZOLE 40MG TAB (PROTONIX) PO SCH (09:21)
[2022-07-28] MEDS: APIXABAN 2.5 MG TAB (ELIQUIS) PO SCH ×2 (09:21→20:38)
[2022-07-28] MEDS: SENOKOT S TAB PO SCH ×2 (09:21→20:38)
[2022-07-28] MEDS: LEVEMIR (INSULIN DETEMIR) 1 UNITS/0.01ML SC SCH (09:22)
[2022-07-28] MEDS: INSULIN LISPRO (NovoLOG) PER UNIT SC SCH ×4 (09:22→21:00)
[2022-07-28] MEDS: TRIAMCINOLONE ACET 0.1% CREAM 80 GM TOP SCH ×2 (09:23→20:38)
[2022-07-28] MEDS: TORSEMIDE 20 MG TAB PO SCH (09:25)
[2022-07-28 14:00] VITALS: BP 127/81
[2022-07-28 19:47] VITALS: BP 113/66
[2022-07-28] MEDS: FINASTERIDE 5MG TAB PO SCH (20:38)
[2022-07-28] MEDS: RAMELTEON 8 MG TAB (ROZEREM) PO PRN (20:41)
[2022-07-29 04:53] VITALS: BP 127/82
[2022-07-29] MEDS: LEVOTHYROXINE 75MCG TABLET (0.075MG) PO SCH (05:26)
[2022-07-29] MEDS: LEVOTHYROXINE 100MCG TABLET (0.1MG) PO SCH (05:26)
[2022-07-29 06:15] LABS: BASO % 0.3 % (0.0-1.0); EOS # 0.5 10^3/uL (0.0-0.5); HEMATOCRIT 31.7 % (42.0-52.0); HEMOGLOBIN 9.8 g/dl (13.5-17.5); LYMPH # 0.6 10^3/uL (1.5-5.0); LYMPH % 9.5 % (24.0-44.0); MEAN CORPUSCULAR HEMOGLOBIN 30.4 pg (27.0-33.0); MEAN CORPUSCULAR HGB CONC 30.9 g/dl (32.0-36.5); MEAN CORPUSCULAR VOLUME 98.4 fl (80.0-96.0); MONO # 0.6 10^3/uL (0.0-0.8); MONO % 8.5 % (2.0-8.0); NEUTROPHILS # 4.9 10^3/uL (1.5-8.5); NEUTROPHILS % 73.3 % (36.0-66.0); PLATELET COUNT, AUTOMATED 311 10^3/uL (150-450); RED BLOOD COUNT 3.22 10^6/uL (4.30-6.10); WHITE BLOOD COUNT 6.7 10^3/uL (4.0-10.0)
[2022-07-29 06:55] LABS: CALCIUM LEVEL 8.2 MG/DL (8.8-10.2); CREATININE FOR GFR 3.62 MG/DL (0.70-1.30); GLOMERULAR FILTRATION RATE 17.3 (>35); POTASSIUM SERUM 4.6 MEQ/L (3.5-5.1)
[2022-07-29 08:13] VITALS: BP 99/68
[2022-07-29] MEDS: PANTOPRAZOLE 40MG TAB (PROTONIX) PO SCH (08:26)
[2022-07-29] MEDS: MIDODRINE 5 MG TAB PO SCH ×3 (08:26→18:24)
[2022-07-29] MEDS: INSULIN LISPRO (NovoLOG) PER UNIT SC SCH ×4 (08:26→20:32)
[2022-07-29] MEDS: SENOKOT S TAB PO SCH ×2 (08:26→20:31)
[2022-07-29] MEDS: APIXABAN 2.5 MG TAB (ELIQUIS) PO SCH ×2 (08:27→20:31)
[2022-07-29] MEDS: CALCITRIOL 0.25 MCG CAP (S0169) PO SCH (08:27)
[2022-07-29] MEDS: LEVEMIR (INSULIN DETEMIR) 1 UNITS/0.01ML SC SCH (08:27)
[2022-07-29] MEDS: TORSEMIDE 20 MG TAB PO SCH (08:27)
[2022-07-29] MEDS: TRIAMCINOLONE ACET 0.1% CREAM 80 GM TOP SCH ×2 (08:29→20:33)
[2022-07-29] MEDS ORDERED: D5W IV ONE (09:00)
[2022-07-29] MEDS ORDERED: TOBRAMYCIN SULF IV ONE (09:00)
[2022-07-29 14:00] VITALS: BP 102/54
[2022-07-29] MEDS: MOM 30ML SUSPENSION UDC PO PRN (18:24)
[2022-07-29] MEDS: RAMELTEON 8 MG TAB (ROZEREM) PO PRN (20:31)
[2022-07-29] MEDS: FINASTERIDE 5MG TAB PO SCH (20:32)
[2022-07-29 20:45] VITALS: BP 106/67
[2022-07-30 05:40] VITALS: BP 125/69
[2022-07-30 05:58] LABS: BASO % 0.2 % (0.0-1.0); EOS # 0.5 10^3/uL (0.0-0.5); EOS % 7.4 % (0.0-3.0); HEMATOCRIT 31.5 % (42.0-52.0); HEMOGLOBIN 9.7 g/dl (13.5-17.5); LYMPH # 0.7 10^3/uL (1.5-5.0); LYMPH % 11.2 % (24.0-44.0); MEAN CORPUSCULAR HEMOGLOBIN 30.3 pg (27.0-33.0); MEAN CORPUSCULAR HGB CONC 30.8 g/dl (32.0-36.5); MEAN CORPUSCULAR VOLUME 98.4 fl (80.0-96.0); MONO # 0.5 10^3/uL (0.0-0.8); MONO % 8.3 % (2.0-8.0); NEUTROPHILS # 4.5 10^3/uL (1.5-8.5); NEUTROPHILS % 72.4 % (36.0-66.0); PLATELET COUNT, AUTOMATED 344 10^3/uL (150-450); WHITE BLOOD COUNT 6.2 10^3/uL (4.0-10.0)
[2022-07-30] MEDS: LEVOTHYROXINE 75MCG TABLET (0.075MG) PO SCH (06:27)
[2022-07-30] MEDS: LEVOTHYROXINE 100MCG TABLET (0.1MG) PO SCH (06:27)
[2022-07-30 06:40] LABS: CALCIUM LEVEL 8.3 MG/DL (8.8-10.2); CREATININE FOR GFR 3.8 MG/DL (0.70-1.30); GLOMERULAR FILTRATION RATE 16.4 (>35); POTASSIUM SERUM 4.9 MEQ/L (3.5-5.1)
[2022-07-30 07:57] VITALS: BP 110/52
[2022-07-30] MEDS: INSULIN LISPRO (NovoLOG) PER UNIT SC SCH ×4 (08:15→20:21)
[2022-07-30] MEDS: TRIAMCINOLONE ACET 0.1% CREAM 80 GM TOP SCH ×2 (08:16→21:21)
[2022-07-30] MEDS: SENOKOT S TAB PO SCH ×2 (08:16→21:20)
[2022-07-30] MEDS: LEVEMIR (INSULIN DETEMIR) 1 UNITS/0.01ML SC SCH (08:16)
[2022-07-30] MEDS: MIDODRINE 5 MG TAB PO SCH ×3 (08:16→16:00)
[2022-07-30] MEDS: PANTOPRAZOLE 40MG TAB (PROTONIX) PO SCH (08:16)
[2022-07-30] MEDS: CALCITRIOL 0.25 MCG CAP (S0169) PO SCH (08:16)
[2022-07-30] MEDS: APIXABAN 2.5 MG TAB (ELIQUIS) PO SCH ×2 (08:17→21:20)
[2022-07-30] MEDS: TORSEMIDE 20 MG TAB PO SCH (08:17)
[2022-07-30 13:15] VITALS: BP 139/90
[2022-07-30 13:55] VITALS: BP 120/58
[2022-07-30 17:26] VITALS: BP 138/85
[2022-07-30 20:30] VITALS: BP 125/79
[2022-07-30] MEDS: FINASTERIDE 5MG TAB PO SCH (21:20)
[2022-07-30] MEDS: RAMELTEON 8 MG TAB (ROZEREM) PO PRN (21:20)
[2022-07-31] MEDS: LEVOTHYROXINE 100MCG TABLET (0.1MG) PO SCH (05:39)
[2022-07-31] MEDS: LEVOTHYROXINE 75MCG TABLET (0.075MG) PO SCH (05:39)
[2022-07-31 06:00] VITALS: BP 135/87
[2022-07-31 08:34] VITALS: BP 112/81
[2022-07-31] MEDS: SENOKOT S TAB PO SCH ×2 (08:35→20:19)
[2022-07-31] MEDS: TORSEMIDE 20 MG TAB PO SCH (08:35)
[2022-07-31] MEDS: CALCITRIOL 0.25 MCG CAP (S0169) PO SCH (08:35)
[2022-07-31] MEDS: LEVEMIR (INSULIN DETEMIR) 1 UNITS/0.01ML SC SCH (08:35)
[2022-07-31] MEDS: MIDODRINE 5 MG TAB PO SCH ×3 (08:35→16:00)
[2022-07-31] MEDS: APIXABAN 2.5 MG TAB (ELIQUIS) PO SCH ×2 (08:35→20:19)
[2022-07-31] MEDS: PANTOPRAZOLE 40MG TAB (PROTONIX) PO SCH (08:35)
[2022-07-31] MEDS: TRIAMCINOLONE ACET 0.1% CREAM 80 GM TOP SCH ×2 (08:36→20:19)
[2022-07-31] MEDS: INSULIN LISPRO (NovoLOG) PER UNIT SC SCH ×4 (08:36→21:00)
[2022-07-31] MEDS: DARBEPOETIN 100 MCG/0.5 ML *NON-DIALYSIS* SYRINGE (J0881) SC SCH (10:15)
[2022-07-31 13:21] VITALS: BP 142/85
[2022-07-31 14:00] VITALS: BP 150/80
[2022-07-31 16:40] VITALS: BP 139/80
[2022-07-31] MEDS: FINASTERIDE 5MG TAB PO SCH (20:19)
[2022-07-31] MEDS: RAMELTEON 8 MG TAB (ROZEREM) PO PRN (20:19)
[2022-07-31 20:40] VITALS: BP 123/75
[2022-08-01 04:30] VITALS: BP 123/74
[2022-08-01] MEDS: LEVOTHYROXINE 75MCG TABLET (0.075MG) PO SCH (05:30)
[2022-08-01] MEDS: LEVOTHYROXINE 100MCG TABLET (0.1MG) PO SCH (05:30)
[2022-08-01] MEDS: LEVEMIR (INSULIN DETEMIR) 1 UNITS/0.01ML SC SCH (08:03)
[2022-08-01] MEDS: INSULIN LISPRO (NovoLOG) PER UNIT SC SCH ×4 (08:17→19:59)
[2022-08-01] MEDS: APIXABAN 2.5 MG TAB (ELIQUIS) PO SCH ×2 (08:18→19:59)
[2022-08-01] MEDS: MIDODRINE 5 MG TAB PO SCH ×3 (08:18→17:05)
[2022-08-01] MEDS: SENOKOT S TAB PO SCH ×2 (08:20→19:59)
[2022-08-01] MEDS: TORSEMIDE 20 MG TAB PO SCH (08:20)
[2022-08-01] MEDS: PANTOPRAZOLE 40MG TAB (PROTONIX) PO SCH (08:20)
[2022-08-01] MEDS: CALCITRIOL 0.25 MCG CAP (S0169) PO SCH (08:20)
[2022-08-01] MEDS: TRIAMCINOLONE ACET 0.1% CREAM 80 GM TOP SCH ×2 (08:21→20:01)
[2022-08-01 10:00] VITALS: BP 122/66
[2022-08-01 13:30] VITALS: BP 130/70
[2022-08-01] MEDS: FINASTERIDE 5MG TAB PO SCH (19:59)
[2022-08-01 20:00] VITALS: BP 154/90
[2022-08-01] MEDS: RAMELTEON 8 MG TAB (ROZEREM) PO PRN (20:02)
[2022-08-02] MEDS: LEVOTHYROXINE 75MCG TABLET (0.075MG) PO SCH (05:28)
[2022-08-02] MEDS: LEVOTHYROXINE 100MCG TABLET (0.1MG) PO SCH (05:28)
[2022-08-02 05:33] VITALS: BP 126/92
[2022-08-02] MEDS: LEVEMIR (INSULIN DETEMIR) 1 UNITS/0.01ML SC SCH ×2 (07:35→09:00)
[2022-08-02] MEDS: INSULIN LISPRO (NovoLOG) PER UNIT SC SCH (08:03)
[2022-08-02] MEDS: MIDODRINE 5 MG TAB PO SCH ×3 (08:03→16:00)
[2022-08-02] MEDS: CALCITRIOL 0.25 MCG CAP (S0169) PO SCH (10:38)
[2022-08-02] MEDS: PANTOPRAZOLE 40MG TAB (PROTONIX) PO SCH (10:38)
[2022-08-02] MEDS: SENOKOT S TAB PO SCH ×2 (10:38→20:36)
[2022-08-02] MEDS: APIXABAN 2.5 MG TAB (ELIQUIS) PO SCH ×2 (10:39→20:36)
[2022-08-02] MEDS: TRIAMCINOLONE ACET 0.1% CREAM 80 GM TOP SCH ×2 (10:39→20:37)
[2022-08-02] MEDS: TORSEMIDE 10 MG TABLET PO SCH ×2 (10:42→20:40)
[2022-08-02 14:00] VITALS: BP 121/83
[2022-08-02 20:00] VITALS: BP 119/75
[2022-08-02] MEDS: FINASTERIDE 5MG TAB PO SCH (20:36)
[2022-08-02] MEDS: RAMELTEON 8 MG TAB (ROZEREM) PO PRN (20:36)
[2022-08-02 20:40] VITALS: BP 154/92
[2022-08-03] MEDS: LEVOTHYROXINE 100MCG TABLET (0.1MG) PO SCH (05:55)
[2022-08-03] MEDS: LEVOTHYROXINE 75MCG TABLET (0.075MG) PO SCH (05:55)
[2022-08-03 06:00] VITALS: BP 126/82
[2022-08-03 06:07] LABS: HEMATOCRIT 31.8 % (42.0-52.0); HEMOGLOBIN 9.9 g/dl (13.5-17.5); MEAN CORPUSCULAR HEMOGLOBIN 30.1 pg (27.0-33.0); MEAN CORPUSCULAR HGB CONC 31.1 g/dl (32.0-36.5); MEAN CORPUSCULAR VOLUME 96.7 fl (80.0-96.0); PLATELET COUNT, AUTOMATED 354 10^3/uL (150-450); RED BLOOD COUNT 3.29 10^6/uL (4.30-6.10); WHITE BLOOD COUNT 7.3 10^3/uL (4.0-10.0)
[2022-08-03 06:45] LABS: ALBUMIN 2.8 GM/DL (3.2-5.2); CALCIUM LEVEL 8.5 MG/DL (8.8-10.2); CREATININE FOR GFR 3.47 MG/DL (0.70-1.30); GLOMERULAR FILTRATION RATE 18.2 (>35); PERCENT SATURATION 8.3 % (19.7-50.0); PHOSPHORUS LEVEL 4.5 MG/DL (2.5-4.9); POTASSIUM SERUM 4.2 MEQ/L (3.5-5.1)
[2022-08-03] MEDS: TORSEMIDE 10 MG TABLET PO SCH ×2 (08:24→20:32)
[2022-08-03] MEDS: MIDODRINE 5 MG TAB PO SCH ×3 (08:25→16:35)
[2022-08-03] MEDS: APIXABAN 2.5 MG TAB (ELIQUIS) PO SCH ×2 (08:25→20:33)
[2022-08-03] MEDS: PANTOPRAZOLE 40MG TAB (PROTONIX) PO SCH (08:25)
[2022-08-03] MEDS: CALCITRIOL 0.25 MCG CAP (S0169) PO SCH (08:25)
[2022-08-03] MEDS: SENOKOT S TAB PO SCH ×2 (08:25→20:33)
[2022-08-03] MEDS: TRIAMCINOLONE ACET 0.1% CREAM 80 GM TOP SCH ×2 (08:25→20:33)
[2022-08-03] MEDS: LEVEMIR (INSULIN DETEMIR) 1 UNITS/0.01ML SC SCH (08:25)
[2022-08-03] MEDS ORDERED: FERRIC CARBOXYMALTOSE INJ 750 MG, VIAL MATE ADAPTER 1 EACH in NS 250 ML IV ONE (10:00)
[2022-08-03 14:00] VITALS: BP 125/65
[2022-08-03 20:15] VITALS: BP 154/100
[2022-08-03] MEDS: RAMELTEON 8 MG TAB (ROZEREM) PO PRN (20:32)
[2022-08-03] MEDS: FINASTERIDE 5MG TAB PO SCH (20:33)
[2022-08-03 22:00] VITALS: BP 142/84
[2022-08-04] MEDS: LEVOTHYROXINE 100MCG TABLET (0.1MG) PO SCH (05:54)
[2022-08-04] MEDS: LEVOTHYROXINE 75MCG TABLET (0.075MG) PO SCH (05:54)
[2022-08-04 06:00] VITALS: BP 120/97
[2022-08-04] MEDS: TRIAMCINOLONE ACET 0.1% CREAM 80 GM TOP SCH ×2 (09:01→20:10)
[2022-08-04] MEDS: LEVEMIR (INSULIN DETEMIR) 1 UNITS/0.01ML SC SCH (09:01)
[2022-08-04 09:02] VITALS: BP 116/74
[2022-08-04] MEDS: SENOKOT S TAB PO SCH ×2 (09:02→20:09)
[2022-08-04] MEDS: APIXABAN 2.5 MG TAB (ELIQUIS) PO SCH ×2 (09:02→20:09)
[2022-08-04] MEDS: TORSEMIDE 10 MG TABLET PO SCH ×2 (09:02→20:09)
[2022-08-04] MEDS: CALCITRIOL 0.25 MCG CAP (S0169) PO SCH (09:02)
[2022-08-04] MEDS: PANTOPRAZOLE 40MG TAB (PROTONIX) PO SCH (09:02)
[2022-08-04] MEDS: MIDODRINE 5 MG TAB PO SCH ×3 (09:02→16:00)
[2022-08-04 12:24] VITALS: BP_SYST 102; BP_SYST 108; BP_DIAS 64; BP_DIAS 72
[2022-08-04 17:05] VITALS: BP 142/93
[2022-08-04] MEDS: FINASTERIDE 5MG TAB PO SCH (20:09)
[2022-08-04] MEDS: RAMELTEON 8 MG TAB (ROZEREM) PO PRN (20:09)
[2022-08-05 05:00] VITALS: BP 136/94
[2022-08-05] MEDS: LEVOTHYROXINE 100MCG TABLET (0.1MG) PO SCH (05:41)
[2022-08-05] MEDS: LEVOTHYROXINE 75MCG TABLET (0.075MG) PO SCH (05:41)
[2022-08-05] MEDS: LEVEMIR (INSULIN DETEMIR) 1 UNITS/0.01ML SC SCH (09:00)
[2022-08-05] MEDS: SENOKOT S TAB PO SCH ×2 (09:00→21:00)
[2022-08-05] MEDS: CALCITRIOL 0.25 MCG CAP (S0169) PO SCH (09:45)
[2022-08-05] MEDS: PANTOPRAZOLE 40MG TAB (PROTONIX) PO SCH (09:46)
[2022-08-05] MEDS: MIDODRINE 5 MG TAB PO SCH ×3 (09:46→16:00)
[2022-08-05] MEDS: TORSEMIDE 10 MG TABLET PO SCH ×2 (09:46→21:28)
[2022-08-05] MEDS: APIXABAN 2.5 MG TAB (ELIQUIS) PO SCH ×2 (09:46→21:27)
[2022-08-05] MEDS: TRIAMCINOLONE ACET 0.1% CREAM 80 GM TOP SCH ×2 (09:47→21:28)
[2022-08-05] MEDS: FINASTERIDE 5MG TAB PO SCH (21:27)
[2022-08-05] MEDS: RAMELTEON 8 MG TAB (ROZEREM) PO PRN (21:28)
[2022-08-06 06:00] VITALS: BP 137/86
[2022-08-06] MEDS: LEVOTHYROXINE 100MCG TABLET (0.1MG) PO SCH (06:13)
[2022-08-06] MEDS: LEVOTHYROXINE 75MCG TABLET (0.075MG) PO SCH (06:13)
[2022-08-06 06:33] LABS: HEMATOCRIT 32.8 % (42.0-52.0); HEMOGLOBIN 10.3 g/dl (13.5-17.5); MEAN CORPUSCULAR HGB CONC 31.4 g/dl (32.0-36.5); MEAN CORPUSCULAR VOLUME 95.6 fl (80.0-96.0); PLATELET COUNT, AUTOMATED 376 10^3/uL (150-450); RED BLOOD COUNT 3.43 10^6/uL (4.30-6.10); WHITE BLOOD COUNT 7.4 10^3/uL (4.0-10.0)
[2022-08-06 07:11] LABS: CALCIUM LEVEL 8.5 MG/DL (8.8-10.2); CREATININE FOR GFR 3.3 MG/DL (0.70-1.30); GLOMERULAR FILTRATION RATE 19.3 (>35); PHOSPHORUS LEVEL 3.5 MG/DL (2.5-4.9); POTASSIUM SERUM 3.7 MEQ/L (3.5-5.1)
[2022-08-06] MEDS: CALCITRIOL 0.25 MCG CAP (S0169) PO SCH (08:17)
[2022-08-06] MEDS: APIXABAN 2.5 MG TAB (ELIQUIS) PO SCH ×2 (08:17→21:00)
[2022-08-06] MEDS: PANTOPRAZOLE 40MG TAB (PROTONIX) PO SCH (08:17)
[2022-08-06] MEDS: LEVEMIR (INSULIN DETEMIR) 1 UNITS/0.01ML SC SCH (08:17)
[2022-08-06] MEDS: SENOKOT S TAB PO SCH ×2 (08:18→21:00)
[2022-08-06] MEDS: MIDODRINE 5 MG TAB PO SCH ×3 (08:18→16:00)
[2022-08-06] MEDS: TORSEMIDE 10 MG TABLET PO SCH ×2 (08:19→20:59)
[2022-08-06 08:23] VITALS: BP 114/72
[2022-08-06] MEDS: TRIAMCINOLONE ACET 0.1% CREAM 80 GM TOP SCH ×2 (08:23→21:01)
[2022-08-06] MEDS ORDERED: GLUCAGON INJ 1MG VIAL SC PRN (10:05)
[2022-08-06] MEDS ORDERED: GLUCOSE 4GM CHEW TABLET PO PRN (10:05)
[2022-08-06] MEDS ORDERED: DEXTROSE 50% 50 ML SYRINGE IV PRN (10:05)
[2022-08-06 13:20] VITALS: BP 134/86
[2022-08-06] MEDS: INSULIN LISPRO (NovoLOG) PER UNIT SC SCH ×2 (14:28→17:50)
[2022-08-06] MEDS ORDERED: INSULIN LISPRO (NovoLOG) PER UNIT SC SCH (21:00)
[2022-08-06] MEDS: FINASTERIDE 5MG TAB PO SCH (21:00)
[2022-08-06] MEDS: RAMELTEON 8 MG TAB (ROZEREM) PO PRN (21:37)
[2022-08-07] MEDS: LEVOTHYROXINE 100MCG TABLET (0.1MG) PO SCH (05:48)
[2022-08-07] MEDS: LEVOTHYROXINE 75MCG TABLET (0.075MG) PO SCH (05:48)
[2022-08-07] MEDS: INSULIN LISPRO (NovoLOG) PER UNIT SC SCH ×2 (07:30→13:19)
[2022-08-07] MEDS: LEVEMIR (INSULIN DETEMIR) 1 UNITS/0.01ML SC SCH (07:34)
[2022-08-07] MEDS: MIDODRINE 5 MG TAB PO SCH ×2 (08:34→13:18)
[2022-08-07] MEDS: APIXABAN 2.5 MG TAB (ELIQUIS) PO SCH (08:34)
[2022-08-07] MEDS: PANTOPRAZOLE 40MG TAB (PROTONIX) PO SCH (08:35)
[2022-08-07] MEDS: CALCITRIOL 0.25 MCG CAP (S0169) PO SCH (08:35)
[2022-08-07] MEDS: SENOKOT S TAB PO SCH (08:35)
[2022-08-07 08:36] VITALS: BP 95/59
[2022-08-07] MEDS: TORSEMIDE 10 MG TABLET PO SCH (08:36)
[2022-08-07] MEDS: TRIAMCINOLONE ACET 0.1% CREAM 80 GM TOP SCH (08:36)
[2022-08-07] MEDS: DARBEPOETIN 100 MCG/0.5 ML *NON-DIALYSIS* SYRINGE (J0881) SC SCH (10:53)
[2022-08-07 12:30] VITALS: BP 104/81
[2022-08-07] MEDS ORDERED: PANT40TA29 PO (12:48)
[2022-08-07] MEDS ORDERED: CALC1CAP31 PO (12:48)
[2022-08-07] MEDS ORDERED: SENN-52 PO (12:48)
[2022-08-07] MEDS ORDERED: PEN1MIS21 SC (12:48)
[2022-08-07] MEDS ORDERED: TORS10TA3 PO (12:48)
[2022-08-07] MEDS ORDERED: GLUC1TES2 XX (12:48)
[2022-08-07] MEDS ORDERED: HUMA100I5 SC (12:48)
[2022-08-07] MEDS ORDERED: RAME8TAB2 PO (12:48)
[2022-08-07] MEDS ORDERED: FINA5TAB2 PO (12:48)
[2022-08-07] MEDS ORDERED: ALCOPAD25 TOP (12:48)
[2022-08-07] MEDS ORDERED: LEVO175T2 PO (12:48)
[2022-08-07] MEDS ORDERED: LEVE1INJ5 SC (12:48)
[2022-08-07] MEDS ORDERED: BLOOKIT21 XX (12:48)
[2022-08-07] MEDS ORDERED: MIDO5TA PO (12:48)
[2022-08-07] MEDS ORDERED: LANC30MI XX (12:48)
[2022-08-07] MEDS ORDERED: ELIQ2.5T PO (12:48)
== END 2022-08-07 14:27 | DRG 871 ==
LOC: M ED 12:00 → M ICU 19:18 → ENRESERV 20:23 → M MSPAV 07-07 16:57
PROVIDERS: ADMIT Internal Medicine Pulmonary Disease; ATTEND Family Medicine
DX: A41.01 Sepsis due to Methicillin susceptible Staphylococcus aureus (principal); E11.10 Type 2 diabetes mellitus with ketoacidosis without coma; I21.A1 Myocardial infarction type 2; I50.43 Acute on chronic combined systolic (congestive) and diastolic (congestive) heart failure; J96.01 Acute respiratory failure with hypoxia; J18.9 Pneumonia, unspecified organism; I13.0 Hypertensive heart and chronic kidney disease with heart failure and stage 1 through stage 4 chronic kidney disease, or unspecified chronic kidney disease; E46 Unspecified protein-calorie malnutrition; E87.1 Hypo-osmolality and hyponatremia; N17.9 Acute kidney failure, unspecified; N18.4 Chronic kidney disease, stage 4 (severe); N25.81 Secondary hyperparathyroidism of renal origin; D62 Acute posthemorrhagic anemia; T83.511A Infection and inflammatory reaction due to indwelling urethral catheter, initial encounter; E78.00 Pure hypercholesterolemia, unspecified; E11.65 Type 2 diabetes mellitus with hyperglycemia; M10.9 Gout, unspecified; E55.9 Vitamin D deficiency, unspecified; N40.0 Benign prostatic hyperplasia without lower urinary tract symptoms; I48.0 Paroxysmal atrial fibrillation; E87.5 Hyperkalemia; E11.22 Type 2 diabetes mellitus with diabetic chronic kidney disease; F32.A Depression, unspecified; R65.20 Severe sepsis without septic shock; E03.9 Hypothyroidism, unspecified; R29.6 Repeated falls; E87.6 Hypokalemia; D50.9 Iron deficiency anemia, unspecified; I27.20 Pulmonary hypertension, unspecified; R04.0 Epistaxis; R31.0 Gross hematuria; I08.0 Rheumatic disorders of both mitral and aortic valves; D63.1 Anemia in chronic kidney disease; R21 Rash and other nonspecific skin eruption; B96.5 Pseudomonas (aeruginosa) (mallei) (pseudomallei) as the cause of diseases classified elsewhere; I95.89 Other hypotension; Y84.6 Urinary catheterization as the cause of abnormal reaction of the patient, or of later complication, without mention of misadventure at the time of the procedure; Z98.41 Cataract extraction status, right eye; Z98.42 Cataract extraction status, left eye; Z85.818 Personal history of malignant neoplasm of other sites of lip, oral cavity, and pharynx; Z92.21 Personal history of antineoplastic chemotherapy; Z92.3 Personal history of irradiation; Z79.890 Hormone replacement therapy; Z79.899 Other long term (current) drug therapy

== ENCOUNTER → 2022-09-25 | Outpatient (REF) | payer MEDICARE ==
[~2022-09-25] MED LIST changes: +ALCOPAD25 TOP; +AMLO1TAB24 PO; +BLOOKIT21 XX; +CALC1CAP31 PO; +ELIQ2.5T PO; +GLUC1TES2 XX; +HUMA100I5 SC; +LANC30MI XX; +LEVO175T2 PO; +MIDO5TA PO; +NOVO1INJ4 SC; +PANT40TA29 PO; +PEN1MIS21 SC; +RAME8TAB2 PO; +SENN-52 PO; +TORS20TA2 PO
[2022-09-25 22:44] LABS: APPEARANCE, URINE MANUAL CLEAR (CLEAR); COLOR, URINE MANUAL LT YELLOW (YELLOW)
[2022-09-25 22:45] LABS: BILIRUBIN, URINE MANUAL NEGATIVE (NEGATIVE); BLOOD URINE MANUAL POSITIVE (NEGATIVE); GLUCOSE, URINE (UA) MANUAL 1+(100 MG/DL) mg/dL (NEGATIVE); KETONE, URINE MANUAL NEGATIVE (NEGATIVE); LEUKOCYTE ESTERASE, URINE MAN NEGATIVE (NEGATIVE); NITRITE, URINE MANUAL NEGATIVE (NEGATIVE); PROTEIN, URINE MANUAL 1+ mg/dL (NEGATIVE); SPECIFIC GRAVITY,URINE MANUAL 1.015 (1.002-1.035); UROBILINOGEN, URINE MANUAL NORMAL (NORMAL)
[2022-09-25 22:52] LABS: AMORPHOUS SEDIMENT, URINE SMALL AMOUNT (NEGATIVE); BACTERIA, URINE NONE SEEN; HYALINE CAST, URINE NONE SEEN /lpf (0-1); MUCUS, URINE SMALL AMOUNT (NEGATIVE); SQUAMOUS EPITHELIAL CELL URINE SMALL AMOUNT /hpf (SMALL AMT); WBC, URINE 0-1 /hpf (0-3)
== END ==
LOC: SKLAB3 22:37
PROVIDERS: ATTEND Internal Medicine
DX: R30.0 Dysuria (principal)

== ENCOUNTER → 2022-10-08 | Outpatient (REF) | payer MEDICARE ==
[2022-10-08 14:50] LABS: HEMATOCRIT 34.7 % (42.0-52.0); HEMOGLOBIN 10.8 g/dl (13.5-17.5); MEAN CORPUSCULAR HEMOGLOBIN 29.8 pg (27.0-33.0); MEAN CORPUSCULAR HGB CONC 31.1 g/dl (32.0-36.5); MEAN CORPUSCULAR VOLUME 95.9 fl (80.0-96.0); PLATELET COUNT, AUTOMATED 264 10^3/uL (150-450); RED BLOOD COUNT 3.62 10^6/uL (4.30-6.10); WHITE BLOOD COUNT 10.4 10^3/uL (4.0-10.0)
[2022-10-08 15:16] LABS: ALBUMIN 2.5 G/DL (3.2-5.2); BILIRUBIN,TOTAL 0.3 MG/DL (0.3-1.2); CALCIUM LEVEL 8.4 MG/DL (8.3-10.6); CREATININE FOR GFR 2.99 MG/DL (0.70-1.30); GLOMERULAR FILTRATION RATE 21.6 (>35); POTASSIUM SERUM 4.8 MMOL/L (3.5-5.1)
[2022-10-08 21:19] LABS: APPEARANCE, URINE MANUAL HAZY (CLEAR); COLOR, URINE MANUAL YELLOW (YELLOW)
[2022-10-08 21:21] LABS: BILIRUBIN, URINE MANUAL NEGATIVE (NEGATIVE); BLOOD URINE MANUAL POSITIVE (NEGATIVE); GLUCOSE, URINE (UA) MANUAL 3+(500 MG/DL) mg/dL (NEGATIVE); KETONE, URINE MANUAL NEGATIVE (NEGATIVE); LEUKOCYTE ESTERASE, URINE MAN POSITIVE (NEGATIVE); NITRITE, URINE MANUAL POSITIVE (NEGATIVE); PROTEIN, URINE MANUAL 1+ mg/dL (NEGATIVE); SPECIFIC GRAVITY,URINE MANUAL 1.015 (1.002-1.035); UROBILINOGEN, URINE MANUAL NORMAL (NORMAL)
[2022-10-08 21:38] LABS: SQUAMOUS EPITHELIAL CELL URINE NONE SEEN /hpf (SMALL AMT); WBC, URINE 40-50 /hpf (0-3)
[2022-10-08 21:39] LABS: BACTERIA, URINE LARGE AMOUNT; HYALINE CAST, URINE NONE SEEN /lpf (0-1)
== END ==
LOC: SKLAB3 07:00
PROVIDERS: ATTEND Internal Medicine
DX: R82.998 Other abnormal findings in urine (principal); Z79.899 Other long term (current) drug therapy

== ENCOUNTER → 2022-10-15 | Outpatient (REF) | payer MEDICARE, MEDICAID ==
[2022-10-15 09:34] LABS: HEMATOCRIT 30.3 % (42.0-52.0); HEMOGLOBIN 9.5 g/dl (13.5-17.5); MEAN CORPUSCULAR HEMOGLOBIN 29.9 pg (27.0-33.0); MEAN CORPUSCULAR HGB CONC 31.4 g/dl (32.0-36.5); MEAN CORPUSCULAR VOLUME 95.3 fl (80.0-96.0); PLATELET COUNT, AUTOMATED 360 10^3/uL (150-450); RED BLOOD COUNT 3.18 10^6/uL (4.30-6.10); WHITE BLOOD COUNT 8.6 10^3/uL (4.0-10.0)
[2022-10-15 10:07] LABS: ALBUMIN 2.3 G/DL (3.2-5.2); BILIRUBIN,TOTAL 0.3 MG/DL (0.3-1.2); CALCIUM LEVEL 8.4 MG/DL (8.3-10.6); CREATININE FOR GFR 3.22 MG/DL (0.70-1.30); GLOMERULAR FILTRATION RATE 19.8 (>35); TOTAL PROTEIN 5.7 G/DL (5.7-8.2)
[2022-10-15 10:41] LABS: APPEARANCE, URINE MANUAL CLEAR (CLEAR); COLOR, URINE MANUAL LT YELLOW (YELLOW)
[2022-10-15 10:42] LABS: PH,URINE MAN 7.5 UNITS (5.0 - 7.0); PROTEIN, URINE MANUAL 1+ mg/dL (NEGATIVE)
[2022-10-15 10:43] LABS: BILIRUBIN, URINE MANUAL NEGATIVE (NEGATIVE); BLOOD URINE MANUAL POSITIVE (NEGATIVE); GLUCOSE, URINE (UA) MANUAL 4+(1000 MG/DL) mg/dL (NEGATIVE); KETONE, URINE MANUAL NEGATIVE (NEGATIVE); LEUKOCYTE ESTERASE, URINE MAN POSITIVE (NEGATIVE); NITRITE, URINE MANUAL NEGATIVE (NEGATIVE); UROBILINOGEN, URINE MANUAL NORMAL (NORMAL)
[2022-10-15 10:56] LABS: BACTERIA, URINE MOD AMOUNT
[2022-10-15 10:57] LABS: WBC, URINE 15-20 /hpf (0-3)
[2022-10-15 10:58] LABS: AMORPHOUS SEDIMENT, URINE SMALL AMOUNT (NEGATIVE)
[2022-10-15 10:59] LABS: HYALINE CAST, URINE NONE SEEN /lpf (0-1)
[2022-10-15 11:00] LABS: SQUAMOUS EPITHELIAL CELL URINE NONE SEEN /hpf (SMALL AMT)
== END ==
LOC: SKLAB3 08:51
PROVIDERS: ATTEND Internal Medicine
DX: I95.9 Hypotension, unspecified (principal); J98.4 Other disorders of lung

== ENCOUNTER → 2022-10-20 | Outpatient (REF) ==
[2022-10-20 06:51] LABS: BASO % 0.4 % (0.0-1.0); EOS # 0.2 10^3/uL (0.0-0.5); HEMATOCRIT 32.2 % (42.0-52.0); HEMOGLOBIN 9.9 g/dl (13.5-17.5); LYMPH # 0.8 10^3/uL (1.5-5.0); LYMPH % 8.4 % (24.0-44.0); MEAN CORPUSCULAR HEMOGLOBIN 29.5 pg (27.0-33.0); MEAN CORPUSCULAR HGB CONC 30.7 g/dl (32.0-36.5); MEAN CORPUSCULAR VOLUME 95.8 fl (80.0-96.0); MONO # 0.5 10^3/uL (0.0-0.8); MONO % 5.6 % (2.0-8.0); NEUTROPHILS # 7.7 10^3/uL (1.5-8.5); NEUTROPHILS % 83.1 % (36.0-66.0); PLATELET COUNT, AUTOMATED 444 10^3/uL (150-450); RED BLOOD COUNT 3.36 10^6/uL (4.30-6.10); WHITE BLOOD COUNT 9.3 10^3/uL (4.0-10.0)
[2022-10-20 07:18] LABS: MAGNESIUM LEVEL 2.4 MG/DL (1.8-2.4)
[2022-10-20 07:20] LABS: ALBUMIN 2.5 G/DL (3.2-5.2); BILIRUBIN,TOTAL 0.2 MG/DL (0.3-1.2); CALCIUM LEVEL 8.6 MG/DL (8.3-10.6); CREATININE FOR GFR 3.11 MG/DL (0.70-1.30); GLOMERULAR FILTRATION RATE 20.6 (>35); POTASSIUM SERUM 5.5 MMOL/L (3.5-5.1)
[2022-10-20 07:21] LABS: TOTAL 25(OH) VITAMIN D 46.4 NG/ML (20.0-100.0)
[2022-10-20 07:34] LABS: HEMOGLOBIN A1c 9.2 % (4.0-6.0)
== END ==
LOC: SKLAB3 10:26
PROVIDERS: ATTEND Internal Medicine
DX: I50.9 Heart failure, unspecified (principal)

== ENCOUNTER → 2022-10-28 | Outpatient (REF) | payer MEDICARE, MEDICAID ==
[2022-10-28 08:01] LABS: MAGNESIUM LEVEL 2.5 MG/DL (1.8-2.4)
[2022-10-28 08:05] LABS: THYROID STIMULATING HORMONE 12.626 uIU/ML (0.55-4.78)
[2022-10-28 08:09] LABS: CALCIUM LEVEL 8.3 MG/DL (8.3-10.6); CREATININE FOR GFR 2.83 MG/DL (0.70-1.30); POTASSIUM SERUM 4.6 MMOL/L (3.5-5.1)
== END ==
LOC: SKLAB3 06:51
PROVIDERS: ATTEND Internal Medicine
DX: I50.9 Heart failure, unspecified (principal); E11.9 Type 2 diabetes mellitus without complications

== ENCOUNTER 2022-10-31 11:54 | Emergency (ER) | payer MEDICARE, MEDICAID ==
[2022-10-31] MEDS ORDERED: FUROSEMIDE 40MG/4ML VIAL IV ONE (12:05)
[2022-10-31 12:37] LABS: BASO % 0.4 % (0.0-1.0); EOS # 0.2 10^3/uL (0.0-0.5); EOS % 2.4 % (0.0-3.0); HEMATOCRIT 31.8 % (42.0-52.0); HEMOGLOBIN 9.7 g/dl (13.5-17.5); LYMPH # 0.5 10^3/uL (1.5-5.0); LYMPH % 7.4 % (24.0-44.0); MEAN CORPUSCULAR HEMOGLOBIN 29.4 pg (27.0-33.0); MEAN CORPUSCULAR HGB CONC 30.5 g/dl (32.0-36.5); MEAN CORPUSCULAR VOLUME 96.4 fl (80.0-96.0); MONO # 0.5 10^3/uL (0.0-0.8); MONO % 7.2 % (2.0-8.0); NEUTROPHILS # 5.8 10^3/uL (1.5-8.5); NEUTROPHILS % 82.3 % (36.0-66.0); PLATELET COUNT, AUTOMATED 328 10^3/uL (150-450); WHITE BLOOD COUNT 7.1 10^3/uL (4.0-10.0)
[2022-10-31 12:50] LABS: INR 1.16
[2022-10-31 13:00] LABS: BILIRUBIN,DIRECT 0.1 MG/DL (<0.4)
[2022-10-31 13:12] LABS: ALBUMIN 2.7 G/DL (3.2-5.2); BILIRUBIN,TOTAL 0.3 MG/DL (0.3-1.2); CALCIUM LEVEL 8.3 MG/DL (8.3-10.6); CK-MB VALUE MASS 3.3 NG/ML (<3.6); CREATININE FOR GFR 2.82 MG/DL (0.70-1.30); GLOMERULAR FILTRATION RATE 23.1 (>35); MB/CK RELATIVE INDEX 5.78 (< OR =4); POTASSIUM SERUM 4.8 MMOL/L (3.5-5.1); TOTAL PROTEIN 6.6 G/DL (5.7-8.2)
[2022-10-31 13:45] VITALS: BP 128/80
== END 2022-10-31 14:08 | disposition home or self-care (01) ==
LOC: M ED 11:54
DX: N18.9 Chronic kidney disease, unspecified (principal); I50.9 Heart failure, unspecified; R60.0 Localized edema; K41.90 Unilateral femoral hernia, without obstruction or gangrene, not specified as recurrent; I51.7 Cardiomegaly; E11.9 Type 2 diabetes mellitus without complications; I10 Essential (primary) hypertension; Z79.01 Long term (current) use of anticoagulants; Z79.4 Long term (current) use of insulin; Z79.890 Hormone replacement therapy; Z79.899 Other long term (current) drug therapy; Z88.8 Allergy status to other drugs, medicaments and biological substances
CPT/HCPCS: 71045; 80048; 80076; 82550; 82553; 83880; 84484; 85025; 85610; 93005; 93041; 93970; 94760; 96374; 99285; J1940

== ENCOUNTER → 2022-11-03 | Outpatient (REF) | payer MEDICARE, MEDICAID ==
[2022-11-03 07:57] LABS: BASO % 0.4 % (0.0-1.0); EOS # 0.2 10^3/uL (0.0-0.5); HEMATOCRIT 31.7 % (42.0-52.0); HEMOGLOBIN 9.7 g/dl (13.5-17.5); LYMPH # 0.5 10^3/uL (1.5-5.0); MEAN CORPUSCULAR HEMOGLOBIN 29.5 pg (27.0-33.0); MEAN CORPUSCULAR HGB CONC 30.6 g/dl (32.0-36.5); MEAN CORPUSCULAR VOLUME 96.4 fl (80.0-96.0); MONO # 0.7 10^3/uL (0.0-0.8); MONO % 8.7 % (2.0-8.0); NEUTROPHILS # 6.6 10^3/uL (1.5-8.5); NEUTROPHILS % 82.4 % (36.0-66.0); PLATELET COUNT, AUTOMATED 300 10^3/uL (150-450); RED BLOOD COUNT 3.29 10^6/uL (4.30-6.10)
[2022-11-03 08:35] LABS: ALBUMIN 2.8 G/DL (3.2-5.2); BILIRUBIN,TOTAL 0.5 MG/DL (0.3-1.2); CALCIUM LEVEL 8.8 MG/DL (8.3-10.6); CREATININE FOR GFR 3.03 MG/DL (0.70-1.30); GLOMERULAR FILTRATION RATE 21.2 (>35); PHOSPHORUS LEVEL 5.2 MG/DL (2.4-5.1); POTASSIUM SERUM 4.2 MMOL/L (3.5-5.1); PTH INTACT 123.8 PG/ML (18.5-88.0); TOTAL PROTEIN 6.4 G/DL (5.7-8.2)
== END ==
LOC: SKLAB3 07:08
PROVIDERS: ATTEND Internal Medicine
DX: N18.9 Chronic kidney disease, unspecified (principal)

== ENCOUNTER → 2022-11-15 | Outpatient (REF) | payer MEDICARE, MEDICAID ==
[~2022-11-15] MED LIST changes: +ACET-910 PO; +AMIT25TA17 PO; +BISA10SU4 PR; +DRIS50003 PO; +ENSULIQ51 PO; +FAMO1TAB11 PO; +FLEEENE12 PR; +FLOM0.4C39 PO; +INSU100I34 SC; +INSUHUMDS SC; +IPRA0.00 NEB; +MELA1TAB9 PO; +MELA3TAB30 PO; +METO25TA PO; +METO25TA4 PO; +MILKSUS3 PO; +NITR0.4S14 SL; +SENN-80 PO; +SYNT88TA2 PO
== END ==
LOC: SKLAB3 08:54
PROVIDERS: ATTEND Internal Medicine
DX: I50.9 Heart failure, unspecified (principal); J90 Pleural effusion, not elsewhere classified

== ENCOUNTER 2022-11-17 10:19 | Inpatient (IN) | payer MEDICARE, MEDICAID ==
[~2022-11-17] VITALS: Ht 175.3 cm; Wt 78.0 kg
[~2022-11-17 10:19] MED LIST changes: -ACET-910 PO; -AMIT25TA17 PO; -BISA10SU4 PR; -DRIS50003 PO; -ENSULIQ51 PO; -FAMO1TAB11 PO; -FLEEENE12 PR; -FLOM0.4C39 PO; -INSU100I34 SC; -INSUHUMDS SC; -IPRA0.00 NEB; -MELA1TAB9 PO; -MELA3TAB30 PO; -METO25TA PO; -METO25TA4 PO; -MILKSUS3 PO; -NITR0.4S14 SL; -NS 500 ML IV ONE; -SENN-80 PO; -SYNT88TA2 PO
[2022-11-17] MEDS ORDERED: NS 500 ML IV ONE (11:40)
[2022-11-17 12:16] LABS: APPEARANCE, URINE MANUAL HAZY (CLEAR); BILIRUBIN, URINE MANUAL NEGATIVE (NEGATIVE); BLOOD URINE MANUAL POSITIVE (NEGATIVE); COLOR, URINE MANUAL YELLOW (YELLOW); GLUCOSE, URINE (UA) MANUAL TRACE(50 MG/DL) mg/dL (NEGATIVE); KETONE, URINE MANUAL NEGATIVE (NEGATIVE); LEUKOCYTE ESTERASE, URINE MAN POSITIVE (NEGATIVE); NITRITE, URINE MANUAL POSITIVE (NEGATIVE); PROTEIN, URINE MANUAL TRACE mg/dL (NEGATIVE); UROBILINOGEN, URINE MANUAL NORMAL (NORMAL)
[2022-11-17 12:35] LABS: BACTERIA, URINE MOD AMOUNT; HYALINE CAST, URINE NONE SEEN /lpf (0-1); MUCUS, URINE SMALL AMOUNT (NEGATIVE); SQUAMOUS EPITHELIAL CELL URINE SMALL AMOUNT /hpf (SMALL AMT); WBC, URINE 30-40 /hpf (0-3)
[2022-11-17 12:42] LABS: RSV AMPLIFICATION NEGATIVE (NEGATIVE)
[2022-11-17] MEDS ORDERED: FLOM0.4C39 PO (14:31)
[2022-11-17] MEDS ORDERED: FINA5TAB2 PO (14:31)
[2022-11-17] MEDS ORDERED: BISA10SU4 PR (14:31)
[2022-11-17] MEDS ORDERED: SENN-80 PO (14:31)
[2022-11-17] MEDS ORDERED: INSUHUMDS SC (14:31)
[2022-11-17] MEDS ORDERED: ENSULIQ51 PO (14:31)
[2022-11-17] MEDS ORDERED: SYNT88TA2 PO (14:31)
[2022-11-17] MEDS ORDERED: FAMO1TAB11 PO (14:31)
[2022-11-17] MEDS ORDERED: FLEEENE12 PR (14:31)
[2022-11-17] MEDS ORDERED: AMIT25TA17 PO (14:31)
[2022-11-17] MEDS ORDERED: ACET-910 PO (14:31)
[2022-11-17] MEDS ORDERED: METO25TA PO (14:31)
[2022-11-17] MEDS ORDERED: MILKSUS3 PO (14:31)
[2022-11-17] MEDS ORDERED: TORS20TA2 PO (14:31)
[2022-11-17] MEDS ORDERED: INSU100I34 SC (14:31)
[2022-11-17] MEDS ORDERED: NITR0.4S14 SL (14:31)
[2022-11-17] MEDS ORDERED: MELA3TAB30 PO (14:31)
[2022-11-17] MEDS ORDERED: METO25TA4 PO (14:31)
[2022-11-17] MEDS ORDERED: DRIS50003 PO (14:31)
[2022-11-17] MEDS ORDERED: ELIQ2.5T PO (14:31)
[2022-11-17] MEDS ORDERED: MELA1TAB9 PO (14:31)
[2022-11-17] MEDS ORDERED: IPRA0.00 NEB (14:31)
[2022-11-17] MEDS ORDERED: HOME MED LIST COMPLETE! XX SCH (14:35)
[2022-11-17] MEDS ORDERED: GLUCOSE 4GM CHEW TABLET PO PRN (15:05)
[2022-11-17] MEDS ORDERED: GLUCAGON INJ 1MG VIAL SC PRN (15:05)
[2022-11-17] MEDS ORDERED: DEXTROSE 50% 50ML SYRINGE IV PRN (15:05)
[2022-11-17] MEDS ORDERED: IPRATROPIUM 0.5MG/ALBUTEROL 2.5MG INH SOL UD 3ML (DUONEB) NEB PRN (16:25)
[2022-11-17] MEDS ORDERED: NITROGLYCERIN 0.4MG SUBL TABLET SL PRN (16:25)
[2022-11-17] MEDS: INSULIN LISPRO (NovoLOG) PER UNIT SC SCH (17:30)
[2022-11-17] MEDS ORDERED: INSULIN LISPRO (NovoLOG) PER UNIT SC SCH (21:00)
[2022-11-17] MEDS ORDERED: APIXABAN 2.5 MG TAB (ELIQUIS) PO SCH (21:00)
[2022-11-17] MEDS: PANTOPRAZOLE 40MG TAB (PROTONIX) PO SCH (21:43)
[2022-11-17] MEDS: SENNA 8.6 MG TAB (SENOKOT) PO SCH (21:43)
[2022-11-17] MEDS: METOPROLOL TART 25 MG TABLET PO SCH (21:45)
[2022-11-17] MEDS: AMITRIPTYLINE 25MG TABLET PO SCH (21:45)
[2022-11-18 05:50] LABS: HEMATOCRIT 33.4 % (42.0-52.0); HEMOGLOBIN 10.4 g/dl (13.5-17.5); MEAN CORPUSCULAR HEMOGLOBIN 29.4 pg (27.0-33.0); MEAN CORPUSCULAR HGB CONC 31.1 g/dl (32.0-36.5); MEAN CORPUSCULAR VOLUME 94.4 fl (80.0-96.0); PLATELET COUNT, AUTOMATED 322 10^3/uL (150-450); RED BLOOD COUNT 3.54 10^6/uL (4.30-6.10); WHITE BLOOD COUNT 6.1 10^3/uL (4.0-10.0)
[2022-11-18] MEDS: LEVOTHYROXINE 88MCG TABLET (0.088 MG) PO SCH (05:53)
[2022-11-18] MEDS: INSULIN LISPRO (NovoLOG) PER UNIT SC SCH ×4 (05:54→18:00)
[2022-11-18 06:12] LABS: IRON (FE) 30 UG/DL (65-175); PERCENT SATURATION 11.7 % (19.7-50.0); TOTAL IRON BINDING CAPACITY 257 UG/DL (250-425)
[2022-11-18 06:21] LABS: BLOOD UREA NITROGEN 212 MG/DL (9-23); CALCIUM LEVEL 7.7 MG/DL (8.3-10.6); CARBON DIOXIDE LEVEL > 40.0 MMOL/L (20-31); CHLORIDE LEVEL 86 MMOL/L (98-107); CREATININE FOR GFR 4.31 MG/DL (0.70-1.30); FERRITIN 109.6 NG/ML (10.5-307.3); GLOMERULAR FILTRATION RATE 14.1 (>35); GLUCOSE, FASTING 144 MG/DL (74-106); MAGNESIUM LEVEL 2.6 MG/DL (1.8-2.4); PHOSPHORUS LEVEL 6.9 MG/DL (2.4-5.1); POTASSIUM SERUM 3.4 MMOL/L (3.5-5.1); SODIUM LEVEL 137 MMOL/L (136-145)
[2022-11-18] MEDS ORDERED: POTASSIUM CHLORIDE 10MEQ SR TABLET PO ONE (07:35)
[2022-11-18] MEDS: METOPROLOL TART 25 MG TABLET PO SCH ×2 (08:40→21:23)
[2022-11-18] MEDS ORDERED: LEVEMIR (INSULIN DETEMIR) 1 UNITS/0.01ML SC SCH (09:00)
[2022-11-18] MEDS ORDERED: FAMOTIDINE 20 MG TAB PO SCH (09:00)
[2022-11-18 09:40] VITALS: BP 108/73
[2022-11-18] MEDS: TAMSULOSIN 0.4 MG CAP PO SCH (10:12)
[2022-11-18] MEDS: SENNA 8.6 MG TAB (SENOKOT) PO SCH ×2 (10:12→21:23)
[2022-11-18] MEDS: FINASTERIDE 5MG TAB PO SCH (10:12)
[2022-11-18] MEDS: (RENVELA) SEVELAMER **CARBONate** 800 MG TAB PO SCH ×2 (12:30→18:00)
[2022-11-18] MEDS ORDERED: HEPARIN 1,000UNITS/ML 10ML VIAL (FOR RADIOLOGY & DIALYSIS ONLY) IV PRN (12:35)
[2022-11-18] MEDS ORDERED: HEPARIN 1,000UNITS/ML 10ML VIAL (FOR RADIOLOGY & DIALYSIS ONLY) XX SCH (12:35)
[2022-11-18] MEDS ORDERED: SODIUM CHLORIDE 0.9% 1000ML IV PRN (12:35)
[2022-11-18] MEDS ORDERED: fentaNYL 100 MCG/2 ML INJECTION As Ordered ONE (14:57)
[2022-11-18] MEDS ORDERED: LIDOCAINE 1% MDV 20ML VIAL As Ordered ONE (14:58)
[2022-11-18] MEDS ORDERED: HEPARIN 1,000UNITS/ML 10ML VIAL (FOR RADIOLOGY & DIALYSIS ONLY) As Ordered ONE (14:58)
[2022-11-18] MEDS ORDERED: MIDAZOLAM INJ 2MG/2ML VIAL As Ordered ONE (14:58)
[2022-11-18] MEDS ORDERED: ceFAZolin 2 GM/D5W 50 ML IV BAG As Ordered ONE (15:19)
[2022-11-18] MEDS ORDERED: ceFAZolin SOD 2 GM in IV 1 EA IV ONE (16:00)
[2022-11-18 16:54] VITALS: BP 107/75
[2022-11-18] MEDS: SODIUM CHLORIDE NASAL 0.65% SPRAY BTL (OCEAN) SCH ×2 (16:54→21:24)
[2022-11-18] MEDS: FLUTICASONE PROP 0.05% NASAL SPRAY 16 GM (FLONASE) NARES SCH ×2 (16:55→21:25)
[2022-11-18] MEDS: SANTYL OINT 30GM TOP SCH (16:57)
[2022-11-18 20:38] VITALS: BP 103/72
[2022-11-18] MEDS: AMITRIPTYLINE 25MG TABLET PO SCH (21:23)
[2022-11-18] MEDS: PANTOPRAZOLE 40MG TAB (PROTONIX) PO SCH (21:23)
[2022-11-18] MEDS: NYSTATIN 100,000 UNITS/GM TOPICAL PWD 15GM TOP SCH (21:25)
[2022-11-18 22:20] VITALS: BP 102/71
[2022-11-19] MEDS ORDERED: UNRESOLVED CLARIFICATION ENTRY XX SCH (00:01)
[2022-11-19] MEDS: LEVOTHYROXINE 88MCG TABLET (0.088 MG) PO SCH (05:39)
[2022-11-19 05:58] LABS: HEMATOCRIT 32.3 % (42.0-52.0); HEMOGLOBIN 9.9 g/dl (13.5-17.5); MEAN CORPUSCULAR HEMOGLOBIN 28.9 pg (27.0-33.0); MEAN CORPUSCULAR HGB CONC 30.7 g/dl (32.0-36.5); MEAN CORPUSCULAR VOLUME 94.2 fl (80.0-96.0); PLATELET COUNT, AUTOMATED 281 10^3/uL (150-450); RED BLOOD COUNT 3.43 10^6/uL (4.30-6.10); WHITE BLOOD COUNT 4.6 10^3/uL (4.0-10.0)
[2022-11-19] MEDS: INSULIN LISPRO (NovoLOG) PER UNIT SC SCH ×5 (06:00→21:00)
[2022-11-19 06:06] VITALS: BP 101/70
[2022-11-19 06:34] LABS: BLOOD UREA NITROGEN 200 MG/DL (9-23); CALCIUM LEVEL 7.9 MG/DL (8.3-10.6); CARBON DIOXIDE LEVEL > 40.0 MMOL/L (20-31); CHLORIDE LEVEL 90 MMOL/L (98-107); CREATININE FOR GFR 4.32 MG/DL (0.70-1.30); GLOMERULAR FILTRATION RATE 14.1 (>35); GLUCOSE, FASTING 79 MG/DL (74-106); MAGNESIUM LEVEL 2.6 MG/DL (1.8-2.4); PHOSPHORUS LEVEL 6.4 MG/DL (2.4-5.1); POTASSIUM SERUM 3.1 MMOL/L (3.5-5.1); SODIUM LEVEL 140 MMOL/L (136-145)
[2022-11-19] MEDS ORDERED: POTASSIUM CHLORIDE 10MEQ SR TABLET PO ONE (08:00)
[2022-11-19] MEDS ORDERED: HEPARIN 1,000UNITS/ML 10ML VIAL (FOR RADIOLOGY & DIALYSIS ONLY) IV PRN (08:15)
[2022-11-19] MEDS ORDERED: HEPARIN 1,000UNITS/ML 10ML VIAL (FOR RADIOLOGY & DIALYSIS ONLY) XX SCH (08:15)
[2022-11-19] MEDS ORDERED: SODIUM CHLORIDE 0.9% 1000ML IV PRN (08:15)
[2022-11-19] MEDS: (RENVELA) SEVELAMER **CARBONate** 800 MG TAB PO SCH (08:21)
[2022-11-19] MEDS: SENNA 8.6 MG TAB (SENOKOT) PO SCH ×2 (08:21→21:46)
[2022-11-19] MEDS: TAMSULOSIN 0.4 MG CAP PO SCH (08:21)
[2022-11-19] MEDS: FINASTERIDE 5MG TAB PO SCH (08:21)
[2022-11-19] MEDS: SODIUM CHLORIDE NASAL 0.65% SPRAY BTL (OCEAN) SCH ×2 (08:22→21:47)
[2022-11-19] MEDS: FLUTICASONE PROP 0.05% NASAL SPRAY 16 GM (FLONASE) NARES SCH ×2 (08:22→21:47)
[2022-11-19] MEDS: NYSTATIN 100,000 UNITS/GM TOPICAL PWD 15GM TOP SCH ×2 (08:23→21:46)
[2022-11-19] MEDS: METOPROLOL TART 25 MG TABLET PO SCH ×2 (08:25→21:49)
[2022-11-19] MEDS: ACETAMINOPHEN TAB 650MG DOSE (2X325MG) PO PRN ×2 (08:26→21:44)
[2022-11-19] MEDS: MIDODRINE 2.5 MG TAB PO SCH ×2 (09:17→12:45)
[2022-11-19 09:37] LABS: HEPATITIS B SURFACE ANTIBODY NEGATIVE (POSITIVE)
[2022-11-19 09:50] LABS: HEPATITIS B SURFACE ANTIGEN NEGATIVE (NEGATIVE)
[2022-11-19 10:10] LABS: HEPATITIS B CORE ANTIBODY IGM NEGATIVE (NEGATIVE)
[2022-11-19 11:03] LABS: HEPATITIS C VIRUS ABY INDEX 0.9 INDEX (<0.8)
[2022-11-19] MEDS: APIXABAN 2.5 MG TAB (ELIQUIS) PO SCH ×2 (12:45→21:44)
[2022-11-19] MEDS: SANTYL OINT 30GM TOP SCH (12:46)
[2022-11-19 14:00] VITALS: BP 88/60
[2022-11-19] MEDS: MIDODRINE 5 MG TAB PO SCH (15:14)
[2022-11-19 16:01] VITALS: BP 98/68
[2022-11-19 17:52] VITALS: BP 108/92
[2022-11-19 20:35] VITALS: BP 108/75
[2022-11-19] MEDS: AMITRIPTYLINE 25MG TABLET PO SCH (21:44)
[2022-11-19] MEDS: PANTOPRAZOLE 40MG TAB (PROTONIX) PO SCH (21:47)
[2022-11-20] MEDS: BISACODYL 10MG SUPP PR PRN (03:34)
[2022-11-20 05:14] VITALS: BP 110/77
[2022-11-20] MEDS ORDERED: SODIUM CHLORIDE 0.9% 1000ML IV PRN (06:00)
[2022-11-20] MEDS ORDERED: HEPARIN 1,000UNITS/ML 10ML VIAL (FOR RADIOLOGY & DIALYSIS ONLY) XX SCH (06:00)
[2022-11-20] MEDS ORDERED: HEPARIN 1,000UNITS/ML 10ML VIAL (FOR RADIOLOGY & DIALYSIS ONLY) IV PRN (06:00)
[2022-11-20] MEDS: FINASTERIDE 5MG TAB PO SCH (06:17)
[2022-11-20] MEDS: APIXABAN 2.5 MG TAB (ELIQUIS) PO SCH ×2 (06:18→20:24)
[2022-11-20] MEDS: MIDODRINE 5 MG TAB PO SCH ×3 (06:18→16:28)
[2022-11-20] MEDS: SENNA 8.6 MG TAB (SENOKOT) PO SCH ×2 (06:18→20:25)
[2022-11-20] MEDS: METOPROLOL TART 25 MG TABLET PO SCH ×2 (06:18→20:25)
[2022-11-20 06:19] LABS: HEMATOCRIT 35.1 % (42.0-52.0); HEMOGLOBIN 10.6 g/dl (13.5-17.5); MEAN CORPUSCULAR HEMOGLOBIN 29.4 pg (27.0-33.0); MEAN CORPUSCULAR HGB CONC 30.2 g/dl (32.0-36.5); MEAN CORPUSCULAR VOLUME 97.5 fl (80.0-96.0); PLATELET COUNT, AUTOMATED 286 10^3/uL (150-450); WHITE BLOOD COUNT 4.8 10^3/uL (4.0-10.0)
[2022-11-20] MEDS: NYSTATIN 100,000 UNITS/GM TOPICAL PWD 15GM TOP SCH ×2 (06:19→20:26)
[2022-11-20] MEDS: SODIUM CHLORIDE NASAL 0.65% SPRAY BTL (OCEAN) SCH ×2 (06:19→20:25)
[2022-11-20] MEDS: FLUTICASONE PROP 0.05% NASAL SPRAY 16 GM (FLONASE) NARES SCH ×2 (06:19→20:25)
[2022-11-20] MEDS: INSULIN LISPRO (NovoLOG) PER UNIT SC SCH ×5 (06:20→21:00)
[2022-11-20] MEDS: LEVOTHYROXINE 88MCG TABLET (0.088 MG) PO SCH (06:30)
[2022-11-20 06:40] LABS: CALCIUM LEVEL 7.7 MG/DL (8.3-10.6); CREATININE FOR GFR 3.51 MG/DL (0.70-1.30); GLOMERULAR FILTRATION RATE 17.9 (>35); MAGNESIUM LEVEL 2.3 MG/DL (1.8-2.4); POTASSIUM SERUM 3.6 MMOL/L (3.5-5.1)
[2022-11-20] MEDS: IRON SUCROSE 100MG 5ML VIAL IV SCH (08:37)
[2022-11-20] MEDS: DARBEPOETIN 100MCG/0.5ML *DIALYSIS* SYRINGE IV SCH (09:40)
[2022-11-20] MEDS: SANTYL OINT 30GM TOP SCH (13:17)
[2022-11-20] MEDS: ASPIRIN 81MG ENTERIC TABLET PO SCH (13:20)
[2022-11-20 14:00] VITALS: BP 110/77
[2022-11-20] MEDS: ACETAMINOPHEN TAB 650MG DOSE (2X325MG) PO PRN (17:48)
[2022-11-20 20:00] VITALS: BP 112/78
[2022-11-20] MEDS: ROSUVASTATIN 10 MG TAB (CRESTOR) PO SCH (20:24)
[2022-11-20] MEDS: AMITRIPTYLINE 25MG TABLET PO SCH (20:24)
[2022-11-20] MEDS: PANTOPRAZOLE 40MG TAB (PROTONIX) PO SCH (20:24)
[2022-11-20 21:03] LABS: ABG BASE EXCESS 5.6 (-2.0-2.0); ABG HCO3 29.1 MEQ/L (22.0-26.0); ABG O2 SATURATION 99.1 % (95.0-99.0); ABG PARTIAL PRESSURE CO2 38.3 mmHg (35.0-45.0); ABG PARTIAL PRESSURE O2 151.6 mmHg (75.0-100.0); ABG STANDARD HCO3 29.6 MEQ/L (22.0-26.0); ABG TOTAL CO2 30.3 MEQ/L (23.0-31.0); ABG pH (ARTERIAL) 7.499 UNITS (7.350-7.450)
[2022-11-20 21:40] LABS: CK-MB VALUE MASS 4.3 NG/ML (<3.6)
[2022-11-20 21:42] LABS: MB/CK RELATIVE INDEX 6.93 (< OR =4)
[2022-11-20 21:48] LABS: CALCIUM LEVEL 7.6 MG/DL (8.3-10.6); CREATININE FOR GFR 2.68 MG/DL (0.70-1.30); GLOMERULAR FILTRATION RATE 24.5 (>35)
[2022-11-20] MEDS ORDERED: DIGOXIN 0.25 MG TAB PO ONE (22:00)
[2022-11-21] VITALS (7 sets, daily range): BP systolic 99–118; BP diastolic 66–85
[2022-11-21] MEDS: ACETAMINOPHEN TAB 650MG DOSE (2X325MG) PO PRN ×2 (02:21→20:29)
[2022-11-21] MEDS ORDERED: TEMAZEPAM 7.5 MG CAP PO ONE (03:00)
[2022-11-21 05:55] LABS: HEMOGLOBIN 10.1 g/dl (13.5-17.5); MEAN CORPUSCULAR HGB CONC 30.6 g/dl (32.0-36.5); MEAN CORPUSCULAR VOLUME 94.8 fl (80.0-96.0); PLATELET COUNT, AUTOMATED 267 10^3/uL (150-450); RED BLOOD COUNT 3.48 10^6/uL (4.30-6.10); WHITE BLOOD COUNT 4.4 10^3/uL (4.0-10.0)
[2022-11-21] MEDS: ASPIRIN 81MG ENTERIC TABLET PO SCH (06:00)
[2022-11-21] MEDS: FINASTERIDE 5MG TAB PO SCH (06:00)
[2022-11-21] MEDS: LEVOTHYROXINE 88MCG TABLET (0.088 MG) PO SCH (06:00)
[2022-11-21] MEDS: SENNA 8.6 MG TAB (SENOKOT) PO SCH ×2 (06:00→20:28)
[2022-11-21] MEDS: METOPROLOL TART 25 MG TABLET PO SCH ×2 (06:01→20:47)
[2022-11-21] MEDS: APIXABAN 2.5 MG TAB (ELIQUIS) PO SCH ×2 (06:01→20:28)
[2022-11-21] MEDS: FLUTICASONE PROP 0.05% NASAL SPRAY 16 GM (FLONASE) NARES SCH ×2 (06:02→20:48)
[2022-11-21] MEDS: NYSTATIN 100,000 UNITS/GM TOPICAL PWD 15GM TOP SCH ×2 (06:02→20:48)
[2022-11-21] MEDS: SODIUM CHLORIDE NASAL 0.65% SPRAY BTL (OCEAN) SCH ×2 (06:03→20:48)
[2022-11-21 06:22] LABS: CALCIUM LEVEL 7.5 MG/DL (8.3-10.6); CREATININE FOR GFR 2.85 MG/DL (0.70-1.30); GLOMERULAR FILTRATION RATE 22.8 (>35); POTASSIUM SERUM 3.9 MMOL/L (3.5-5.1)
[2022-11-21] MEDS ORDERED: PILL CUTTER 1 EACH XX PRN (07:00)
[2022-11-21] MEDS: MIDODRINE 5 MG TAB PO SCH ×3 (07:45→15:49)
[2022-11-21] MEDS: SANTYL OINT 30GM TOP SCH (08:05)
[2022-11-21] MEDS: INSULIN LISPRO (NovoLOG) PER UNIT SC SCH ×4 (08:42→20:39)
[2022-11-21 12:08] LABS: HEPATITIS C QUANTITATION HCV Not Detected IU/mL (.)
[2022-11-21] MEDS: ESCITALOPRAM OXALATE 5MG TABLET (LEXAPRO) PO SCH (15:49)
[2022-11-21] MEDS: PANTOPRAZOLE 40MG TAB (PROTONIX) PO SCH (20:28)
[2022-11-21] MEDS: ROSUVASTATIN 10 MG TAB (CRESTOR) PO SCH (20:29)
[2022-11-21] MEDS: AMITRIPTYLINE 25MG TABLET PO SCH (20:29)
[2022-11-21] MEDS: LEVEMIR (INSULIN DETEMIR) 1 UNITS/0.01ML SC SCH (20:48)
[2022-11-22] MEDS: LEVOTHYROXINE 88MCG TABLET (0.088 MG) PO SCH (05:27)
[2022-11-22 06:00] VITALS: BP 121/85
[2022-11-22 06:21] LABS: MEAN CORPUSCULAR HEMOGLOBIN 28.7 pg (27.0-33.0); MEAN CORPUSCULAR HGB CONC 30.3 g/dl (32.0-36.5); MEAN CORPUSCULAR VOLUME 94.8 fl (80.0-96.0); PLATELET COUNT, AUTOMATED 264 10^3/uL (150-450); RED BLOOD COUNT 3.48 10^6/uL (4.30-6.10); WHITE BLOOD COUNT 4.8 10^3/uL (4.0-10.0)
[2022-11-22 06:47] LABS: CALCIUM LEVEL 7.4 MG/DL (8.3-10.6); CREATININE FOR GFR 3.03 MG/DL (0.70-1.30); GLOMERULAR FILTRATION RATE 21.2 (>35); MAGNESIUM LEVEL 2.1 MG/DL (1.8-2.4); POTASSIUM SERUM 3.5 MMOL/L (3.5-5.1)
[2022-11-22] MEDS: MIDODRINE 5 MG TAB PO SCH ×3 (08:00→16:10)
[2022-11-22] MEDS: SENNA 8.6 MG TAB (SENOKOT) PO SCH ×2 (08:38→20:16)
[2022-11-22] MEDS: NYSTATIN 100,000 UNITS/GM TOPICAL PWD 15GM TOP SCH ×2 (08:38→20:19)
[2022-11-22] MEDS: APIXABAN 2.5 MG TAB (ELIQUIS) PO SCH ×2 (08:38→20:17)
[2022-11-22] MEDS: INSULIN LISPRO (NovoLOG) PER UNIT SC SCH ×4 (08:38→21:00)
[2022-11-22] MEDS: ASPIRIN 81MG ENTERIC TABLET PO SCH (08:38)
[2022-11-22] MEDS: METOPROLOL TART 25 MG TABLET PO SCH ×2 (08:39→20:18)
[2022-11-22] MEDS: FINASTERIDE 5MG TAB PO SCH (08:39)
[2022-11-22] MEDS: FLUTICASONE PROP 0.05% NASAL SPRAY 16 GM (FLONASE) NARES SCH ×2 (08:39→20:18)
[2022-11-22] MEDS: SODIUM CHLORIDE NASAL 0.65% SPRAY BTL (OCEAN) SCH ×2 (08:40→20:18)
[2022-11-22] MEDS: ESCITALOPRAM OXALATE 5MG TABLET (LEXAPRO) PO SCH (08:46)
[2022-11-22 12:39] VITALS: BP 138/95
[2022-11-22] MEDS: SANTYL OINT 30GM TOP SCH (14:12)
[2022-11-22 16:00] VITALS: BP 131/91
[2022-11-22] MEDS: ROSUVASTATIN 10 MG TAB (CRESTOR) PO SCH (20:17)
[2022-11-22] MEDS: PANTOPRAZOLE 40MG TAB (PROTONIX) PO SCH (20:17)
[2022-11-22] MEDS: AMITRIPTYLINE 25MG TABLET PO SCH (20:17)
[2022-11-22] MEDS: ACETAMINOPHEN TAB 650MG DOSE (2X325MG) PO PRN (20:18)
[2022-11-22 21:48] VITALS: BP 123/93
[2022-11-22] MEDS: LEVEMIR (INSULIN DETEMIR) 1 UNITS/0.01ML SC SCH (21:50)
[2022-11-23 04:46] VITALS: BP 115/83
[2022-11-23 06:03] LABS: HEMATOCRIT 33.5 % (42.0-52.0); HEMOGLOBIN 10.2 g/dl (13.5-17.5); MEAN CORPUSCULAR HEMOGLOBIN 29.1 pg (27.0-33.0); MEAN CORPUSCULAR HGB CONC 30.4 g/dl (32.0-36.5); MEAN CORPUSCULAR VOLUME 95.4 fl (80.0-96.0); PLATELET COUNT, AUTOMATED 261 10^3/uL (150-450); RED BLOOD COUNT 3.51 10^6/uL (4.30-6.10); WHITE BLOOD COUNT 4.7 10^3/uL (4.0-10.0)
[2022-11-23] MEDS: LEVOTHYROXINE 88MCG TABLET (0.088 MG) PO SCH (06:26)
[2022-11-23] MEDS ORDERED: HEPARIN 1,000UNITS/ML 10ML VIAL (FOR RADIOLOGY & DIALYSIS ONLY) XX SCH (06:30)
[2022-11-23] MEDS ORDERED: SODIUM CHLORIDE 0.9% 1000ML IV PRN (06:30)
[2022-11-23] MEDS ORDERED: HEPARIN 1,000UNITS/ML 10ML VIAL (FOR RADIOLOGY & DIALYSIS ONLY) IV PRN (06:30)
[2022-11-23 06:40] LABS: ALBUMIN 2.3 G/DL (3.2-5.2); CALCIUM LEVEL 7.4 MG/DL (8.3-10.6); CREATININE FOR GFR 3.06 MG/DL (0.70-1.30); PHOSPHORUS LEVEL 3.4 MG/DL (2.4-5.1); POTASSIUM SERUM 3.7 MMOL/L (3.5-5.1); PTH INTACT 181.4 PG/ML (18.5-88.0)
[2022-11-23 06:42] LABS: TOTAL 25(OH) VITAMIN D 47.5 NG/ML (20.0-100.0)
[2022-11-23] MEDS: ASPIRIN 81MG ENTERIC TABLET PO SCH (06:44)
[2022-11-23] MEDS: SENNA 8.6 MG TAB (SENOKOT) PO SCH ×2 (06:44→22:23)
[2022-11-23] MEDS: ESCITALOPRAM OXALATE 5MG TABLET (LEXAPRO) PO SCH (06:44)
[2022-11-23] MEDS: APIXABAN 2.5 MG TAB (ELIQUIS) PO SCH ×2 (06:45→22:23)
[2022-11-23] MEDS: FINASTERIDE 5MG TAB PO SCH (06:45)
[2022-11-23] MEDS: METOPROLOL TART 25 MG TABLET PO SCH ×2 (06:45→22:24)
[2022-11-23] MEDS: MIDODRINE 5 MG TAB PO SCH ×3 (07:29→16:57)
[2022-11-23] MEDS: SODIUM CHLORIDE NASAL 0.65% SPRAY BTL (OCEAN) SCH ×2 (07:29→22:24)
[2022-11-23] MEDS: INSULIN LISPRO (NovoLOG) PER UNIT SC SCH ×4 (07:29→21:00)
[2022-11-23] MEDS: FLUTICASONE PROP 0.05% NASAL SPRAY 16 GM (FLONASE) NARES SCH ×2 (07:30→22:24)
[2022-11-23] MEDS: SANTYL OINT 30GM TOP SCH (07:30)
[2022-11-23] MEDS: NYSTATIN 100,000 UNITS/GM TOPICAL PWD 15GM TOP SCH ×2 (07:30→22:25)
[2022-11-23] MEDS: IRON SUCROSE 100MG 5ML VIAL IV SCH (09:29)
[2022-11-23 13:19] VITALS: O2SAT 96
[2022-11-23 13:27] VITALS: O2SAT 96
[2022-11-23 14:00] VITALS: BP 116/84
[2022-11-23 18:45] VITALS: O2SAT 94
[2022-11-23] MEDS: LEVEMIR (INSULIN DETEMIR) 1 UNITS/0.01ML SC SCH (21:00)
[2022-11-23 22:00] VITALS: BP 116/82
[2022-11-23] MEDS: AMITRIPTYLINE 25MG TABLET PO SCH (22:22)
[2022-11-23] MEDS: PANTOPRAZOLE 40MG TAB (PROTONIX) PO SCH (22:23)
[2022-11-23] MEDS: ROSUVASTATIN 10 MG TAB (CRESTOR) PO SCH (22:23)
[2022-11-24 01:54] LABS: HEMATOCRIT 33.2 % (42.0-52.0); HEMOGLOBIN 10.2 g/dl (13.5-17.5); MEAN CORPUSCULAR HEMOGLOBIN 29.6 pg (27.0-33.0); MEAN CORPUSCULAR HGB CONC 30.7 g/dl (32.0-36.5); MEAN CORPUSCULAR VOLUME 96.2 fl (80.0-96.0); PLATELET COUNT, AUTOMATED 254 10^3/uL (150-450); RED BLOOD COUNT 3.45 10^6/uL (4.30-6.10); WHITE BLOOD COUNT 5.7 10^3/uL (4.0-10.0)
[2022-11-24 02:05] LABS: INR 1.37; PROTHROMBIN TIME 17.1 SECONDS (12.5-14.5)
[2022-11-24 02:06] LABS: PARTIAL THROMBOPLASTIN TIME 35.8 SECONDS (24.8-34.2)
[2022-11-24 02:58] LABS: CALCIUM LEVEL 7.4 MG/DL (8.3-10.6); CREATININE FOR GFR 2.31 MG/DL (0.70-1.30); GLOMERULAR FILTRATION RATE 29.1 (>35); MAGNESIUM LEVEL 1.8 MG/DL (1.8-2.4); POTASSIUM SERUM 4.1 MMOL/L (3.5-5.1)
[2022-11-24] MEDS ORDERED: DESMOPRESSIN ACETATE IV ONE (03:00)
[2022-11-24] MEDS ORDERED: NS IV ONE (03:00)
[2022-11-24] MEDS ORDERED: NS 500 ML IV ONE ×2 (04:15→14:05)
[2022-11-24 05:49] LABS: BASO % 0.2 % (0.0-1.0); EOS # 0.2 10^3/uL (0.0-0.5); EOS % 3.1 % (0.0-3.0); HEMATOCRIT 31.5 % (42.0-52.0); HEMOGLOBIN 9.6 g/dl (13.5-17.5); LYMPH # 0.7 10^3/uL (1.5-5.0); LYMPH % 13.2 % (24.0-44.0); MEAN CORPUSCULAR HEMOGLOBIN 29.1 pg (27.0-33.0); MEAN CORPUSCULAR HGB CONC 30.5 g/dl (32.0-36.5); MEAN CORPUSCULAR VOLUME 95.5 fl (80.0-96.0); MONO # 0.4 10^3/uL (0.0-0.8); MONO % 7.7 % (2.0-8.0); NEUTROPHILS # 4.1 10^3/uL (1.5-8.5); NEUTROPHILS % 75.6 % (36.0-66.0); PLATELET COUNT, AUTOMATED 229 10^3/uL (150-450); WHITE BLOOD COUNT 5.4 10^3/uL (4.0-10.0)
[2022-11-24 06:00] VITALS: BP 98/60
[2022-11-24] MEDS: LEVOTHYROXINE 88MCG TABLET (0.088 MG) PO SCH (06:00)
[2022-11-24 06:13] LABS: CALCIUM LEVEL 7.9 MG/DL (8.3-10.6); CREATININE FOR GFR 2.4 MG/DL (0.70-1.30); GLOMERULAR FILTRATION RATE 27.8 (>35); MAGNESIUM LEVEL 1.8 MG/DL (1.8-2.4); POTASSIUM SERUM 4.3 MMOL/L (3.5-5.1)
[2022-11-24 06:41] VITALS: BP 102/62
[2022-11-24] MEDS: INSULIN LISPRO (NovoLOG) PER UNIT SC SCH ×4 (07:30→21:00)
[2022-11-24] MEDS: LevoFLOXacin 750 MG TABLET PO SCH (07:36)
[2022-11-24 08:57] VITALS: BP 96/70
[2022-11-24] MEDS: MIDODRINE 5 MG TAB PO SCH ×3 (08:58→16:24)
[2022-11-24] MEDS: ASPIRIN 81MG ENTERIC TABLET PO SCH (08:58)
[2022-11-24] MEDS: FINASTERIDE 5MG TAB PO SCH (08:59)
[2022-11-24] MEDS ORDERED: CEFDINIR 300 MG CAP (OMNICEF) PO SCH (09:00)
[2022-11-24] MEDS ORDERED: DOXYCYCLINE HYCLATE 100MG TABLET PO SCH (09:00)
[2022-11-24] MEDS: SENNA 8.6 MG TAB (SENOKOT) PO SCH ×2 (09:01→20:37)
[2022-11-24] MEDS: SODIUM CHLORIDE NASAL 0.65% SPRAY BTL (OCEAN) SCH ×2 (09:01→20:38)
[2022-11-24] MEDS: METOPROLOL TART 25 MG TABLET PO SCH ×2 (09:01→20:42)
[2022-11-24] MEDS: ESCITALOPRAM OXALATE 5MG TABLET (LEXAPRO) PO SCH (09:01)
[2022-11-24] MEDS: FLUTICASONE PROP 0.05% NASAL SPRAY 16 GM (FLONASE) NARES SCH ×2 (09:02→20:38)
[2022-11-24] MEDS: NYSTATIN 100,000 UNITS/GM TOPICAL PWD 15GM TOP SCH ×2 (09:02→20:39)
[2022-11-24] MEDS: SANTYL OINT 30GM TOP SCH (09:02)
[2022-11-24 13:31] LABS: HEMATOCRIT 30.5 % (42.0-52.0); HEMOGLOBIN 9.3 g/dl (13.5-17.5)
[2022-11-24 13:57] VITALS: BP 66/40
[2022-11-24 14:00] VITALS: BP 96/61
[2022-11-24] MEDS: BISACODYL 10MG SUPP PR PRN (15:58)
[2022-11-24] MEDS ORDERED: SILVER NITRATE APPLICATOR (1 = QTY 10) TOP ONE (17:55)
[2022-11-24 20:30] VITALS: BP_SYST 115; BP_SYST 83; BP_DIAS 83
[2022-11-24] MEDS: MOM 30ML SUSPENSION UDC PO PRN (20:37)
[2022-11-24] MEDS: PANTOPRAZOLE 40MG TAB (PROTONIX) PO SCH (20:37)
[2022-11-24] MEDS: ROSUVASTATIN 10 MG TAB (CRESTOR) PO SCH (20:37)
[2022-11-24] MEDS: AMITRIPTYLINE 25MG TABLET PO SCH (20:38)
[2022-11-24] MEDS: LEVEMIR (INSULIN DETEMIR) 1 UNITS/0.01ML SC SCH (20:38)
[2022-11-24 21:25] LABS: HEMATOCRIT 28.1 % (42.0-52.0); HEMOGLOBIN 8.5 g/dl (13.5-17.5)
[2022-11-25 06:14] VITALS: BP 115/80
[2022-11-25 06:20] LABS: HEMATOCRIT 27.4 % (42.0-52.0); HEMOGLOBIN 8.6 g/dl (13.5-17.5); MEAN CORPUSCULAR HEMOGLOBIN 29.4 pg (27.0-33.0); MEAN CORPUSCULAR HGB CONC 31.4 g/dl (32.0-36.5); MEAN CORPUSCULAR VOLUME 93.5 fl (80.0-96.0); PLATELET COUNT, AUTOMATED 217 10^3/uL (150-450); RED BLOOD COUNT 2.93 10^6/uL (4.30-6.10); WHITE BLOOD COUNT 6.5 10^3/uL (4.0-10.0)
[2022-11-25] MEDS: ASPIRIN 81MG ENTERIC TABLET PO SCH (06:23)
[2022-11-25] MEDS: SENNA 8.6 MG TAB (SENOKOT) PO SCH ×2 (06:23→22:00)
[2022-11-25] MEDS: METOPROLOL TART 25 MG TABLET PO SCH (06:23)
[2022-11-25] MEDS: FINASTERIDE 5MG TAB PO SCH (06:24)
[2022-11-25] MEDS: FLUTICASONE PROP 0.05% NASAL SPRAY 16 GM (FLONASE) NARES SCH ×2 (06:24→22:00)
[2022-11-25] MEDS: SODIUM CHLORIDE NASAL 0.65% SPRAY BTL (OCEAN) SCH ×2 (06:24→22:02)
[2022-11-25] MEDS: NYSTATIN 100,000 UNITS/GM TOPICAL PWD 15GM TOP SCH ×2 (06:25→22:03)
[2022-11-25] MEDS: LEVOTHYROXINE 88MCG TABLET (0.088 MG) PO SCH (06:26)
[2022-11-25] MEDS: ESCITALOPRAM OXALATE 5MG TABLET (LEXAPRO) PO SCH (06:33)
[2022-11-25 06:50] LABS: CALCIUM LEVEL 7.6 MG/DL (8.3-10.6); CREATININE FOR GFR 2.81 MG/DL (0.70-1.30); GLOMERULAR FILTRATION RATE 23.2 (>35); MAGNESIUM LEVEL 1.9 MG/DL (1.8-2.4); POTASSIUM SERUM 4.3 MMOL/L (3.5-5.1)
[2022-11-25] MEDS ORDERED: LevoFLOXacin 500 MG TABLET PO SCH (07:05)
[2022-11-25] MEDS: MIDODRINE 5 MG TAB PO SCH ×3 (07:36→17:02)
[2022-11-25] MEDS: INSULIN LISPRO (NovoLOG) PER UNIT SC SCH ×4 (07:36→21:00)
[2022-11-25] MEDS ORDERED: AMIODARONE 100MG TABLET (PACERONE) PO SCH ×3 (09:00→21:00)
[2022-11-25] MEDS ORDERED: NS 500 ML IV ONE (12:10)
[2022-11-25 14:00] VITALS: BP 110/74
[2022-11-25] MEDS: AMIODARONE 200 MG TAB (PACERONE) PO SCH ×2 (14:24→21:59)
[2022-11-25] MEDS: SANTYL OINT 30GM TOP SCH (14:24)
[2022-11-25] MEDS: AMITRIPTYLINE 25MG TABLET PO SCH (21:59)
[2022-11-25] MEDS: ROSUVASTATIN 10 MG TAB (CRESTOR) PO SCH (21:59)
[2022-11-25] MEDS: APIXABAN 2.5 MG TAB (ELIQUIS) PO SCH (21:59)
[2022-11-25] MEDS: PANTOPRAZOLE 40MG TAB (PROTONIX) PO SCH (21:59)
[2022-11-25 22:00] VITALS: BP 110/75
[2022-11-25] MEDS: METOPROLOL TART 12.5 MG PER 1/2 TAB PO SCH (22:00)
[2022-11-25] MEDS: LEVEMIR (INSULIN DETEMIR) 1 UNITS/0.01ML SC SCH (22:03)
[2022-11-26] VITALS (10 sets, daily range): BP systolic 96–130; BP diastolic 64–88
[2022-11-26 06:24] LABS: HEMATOCRIT 25.1 % (42.0-52.0); HEMOGLOBIN 7.7 g/dl (13.5-17.5); MEAN CORPUSCULAR HEMOGLOBIN 29.6 pg (27.0-33.0); MEAN CORPUSCULAR HGB CONC 30.7 g/dl (32.0-36.5); MEAN CORPUSCULAR VOLUME 96.5 fl (80.0-96.0); PLATELET COUNT, AUTOMATED 213 10^3/uL (150-450); WHITE BLOOD COUNT 6.7 10^3/uL (4.0-10.0)
[2022-11-26] MEDS: LevoFLOXacin 750 MG TABLET PO SCH (06:47)
[2022-11-26] MEDS: LEVOTHYROXINE 88MCG TABLET (0.088 MG) PO SCH (06:47)
[2022-11-26] MEDS ORDERED: HEPARIN 1,000UNITS/ML 10ML VIAL (FOR RADIOLOGY & DIALYSIS ONLY) XX SCH (06:50)
[2022-11-26] MEDS ORDERED: HEPARIN 1,000UNITS/ML 10ML VIAL (FOR RADIOLOGY & DIALYSIS ONLY) IV PRN (06:50)
[2022-11-26] MEDS ORDERED: SODIUM CHLORIDE 0.9% 1000ML IV PRN (06:50)
[2022-11-26 06:56] LABS: CALCIUM LEVEL 7.4 MG/DL (8.3-10.6); CREATININE FOR GFR 3.05 MG/DL (0.70-1.30); GLOMERULAR FILTRATION RATE 21.1 (>35); MAGNESIUM LEVEL 1.8 MG/DL (1.8-2.4); POTASSIUM SERUM 4.7 MMOL/L (3.5-5.1)
[2022-11-26] MEDS: MIDODRINE 5 MG TAB PO SCH ×3 (08:05→17:18)
[2022-11-26] MEDS: INSULIN LISPRO (NovoLOG) PER UNIT SC SCH ×4 (08:06→21:00)
[2022-11-26] MEDS: IRON SUCROSE 100MG 5ML VIAL IV SCH (09:33)
[2022-11-26] MEDS: METOPROLOL TART 12.5 MG PER 1/2 TAB PO SCH ×2 (13:10→22:03)
[2022-11-26] MEDS: SENNA 8.6 MG TAB (SENOKOT) PO SCH ×2 (13:10→22:02)
[2022-11-26] MEDS: FLUTICASONE PROP 0.05% NASAL SPRAY 16 GM (FLONASE) NARES SCH (13:11)
[2022-11-26] MEDS: ESCITALOPRAM OXALATE 5MG TABLET (LEXAPRO) PO SCH (13:11)
[2022-11-26] MEDS: ASPIRIN 81MG ENTERIC TABLET PO SCH (13:11)
[2022-11-26] MEDS: SODIUM CHLORIDE NASAL 0.65% SPRAY BTL (OCEAN) SCH ×2 (13:11→22:08)
[2022-11-26] MEDS: SANTYL OINT 30GM TOP SCH (13:11)
[2022-11-26] MEDS: NYSTATIN 100,000 UNITS/GM TOPICAL PWD 15GM TOP SCH ×2 (13:12→22:07)
[2022-11-26] MEDS: AMIODARONE 200 MG TAB (PACERONE) PO SCH ×2 (14:39→22:02)
[2022-11-26] MEDS: FINASTERIDE 5MG TAB PO SCH (14:39)
[2022-11-26 15:08] LABS: HEMATOCRIT 32.4 % (42.0-52.0)
[2022-11-26] MEDS: MOM 30ML SUSPENSION UDC PO PRN (17:21)
[2022-11-26] MEDS: AMITRIPTYLINE 25MG TABLET PO SCH (22:02)
[2022-11-26] MEDS: ROSUVASTATIN 10 MG TAB (CRESTOR) PO SCH (22:02)
[2022-11-26] MEDS: PANTOPRAZOLE 40MG TAB (PROTONIX) PO SCH (22:03)
[2022-11-26] MEDS: LEVEMIR (INSULIN DETEMIR) 1 UNITS/0.01ML SC SCH (22:06)
[2022-11-27 05:03] VITALS: BP 107/78
[2022-11-27 06:21] LABS: MEAN CORPUSCULAR HEMOGLOBIN 29.3 pg (27.0-33.0); MEAN CORPUSCULAR VOLUME 94.5 fl (80.0-96.0); PLATELET COUNT, AUTOMATED 222 10^3/uL (150-450); RED BLOOD COUNT 3.07 10^6/uL (4.30-6.10); WHITE BLOOD COUNT 7.3 10^3/uL (4.0-10.0)
[2022-11-27 06:53] LABS: CALCIUM LEVEL 7.8 MG/DL (8.3-10.6); CREATININE FOR GFR 2.33 MG/DL (0.70-1.30); GLOMERULAR FILTRATION RATE 28.8 (>35); MAGNESIUM LEVEL 1.9 MG/DL (1.8-2.4); PHOSPHORUS LEVEL 2.4 MG/DL (2.4-5.1); POTASSIUM SERUM 4.8 MMOL/L (3.5-5.1)
[2022-11-27] MEDS: LEVOTHYROXINE 88MCG TABLET (0.088 MG) PO SCH (06:55)
[2022-11-27] MEDS: SODIUM CHLORIDE NASAL 0.65% SPRAY BTL (OCEAN) SCH ×2 (09:00→20:43)
[2022-11-27] MEDS: METOPROLOL TART 12.5 MG PER 1/2 TAB PO SCH ×2 (09:00→20:42)
[2022-11-27] MEDS: ASPIRIN 81MG ENTERIC TABLET PO SCH (09:07)
[2022-11-27] MEDS: AMIODARONE 200 MG TAB (PACERONE) PO SCH ×2 (09:07→20:42)
[2022-11-27] MEDS: SENNA 8.6 MG TAB (SENOKOT) PO SCH ×2 (09:07→20:41)
[2022-11-27] MEDS: ESCITALOPRAM OXALATE 5MG TABLET (LEXAPRO) PO SCH (09:07)
[2022-11-27] MEDS: NYSTATIN 100,000 UNITS/GM TOPICAL PWD 15GM TOP SCH ×2 (09:08→20:43)
[2022-11-27] MEDS: MIDODRINE 5 MG TAB PO SCH ×3 (09:08→17:01)
[2022-11-27] MEDS: SANTYL OINT 30GM TOP SCH (09:09)
[2022-11-27] MEDS: INSULIN LISPRO (NovoLOG) PER UNIT SC SCH ×4 (09:09→20:19)
[2022-11-27] MEDS: FINASTERIDE 5MG TAB PO SCH (09:10)
[2022-11-27] MEDS: APIXABAN 2.5 MG TAB (ELIQUIS) PO SCH ×2 (09:10→20:42)
[2022-11-27] MEDS ORDERED: NS 500 ML IV ONE (10:45)
[2022-11-27 10:50] VITALS: BP 72/50
[2022-11-27 11:46] VITALS: BP 90/60
[2022-11-27 14:00] VITALS: BP 110/80
[2022-11-27 14:32] LABS: CK-MB VALUE MASS 3.1 NG/ML (<3.6)
[2022-11-27 14:33] LABS: MB/CK RELATIVE INDEX 8.15 (< OR =4)
[2022-11-27] MEDS: PANTOPRAZOLE 40MG TAB (PROTONIX) PO SCH (20:42)
[2022-11-27] MEDS: ROSUVASTATIN 10 MG TAB (CRESTOR) PO SCH (20:42)
[2022-11-27] MEDS: AMITRIPTYLINE 25MG TABLET PO SCH (20:42)
[2022-11-27] MEDS: LEVEMIR (INSULIN DETEMIR) 1 UNITS/0.01ML SC SCH (20:43)
[2022-11-27 22:00] VITALS: BP 109/75
[2022-11-28] VITALS (9 sets, daily range): BP systolic 77–101; BP diastolic 51–71
[2022-11-28 05:30] LABS: HEMATOCRIT 29.8 % (42.0-52.0); MEAN CORPUSCULAR HEMOGLOBIN 29.4 pg (27.0-33.0); MEAN CORPUSCULAR HGB CONC 30.2 g/dl (32.0-36.5); MEAN CORPUSCULAR VOLUME 97.4 fl (80.0-96.0); PLATELET COUNT, AUTOMATED 236 10^3/uL (150-450); RED BLOOD COUNT 3.06 10^6/uL (4.30-6.10); WHITE BLOOD COUNT 5.6 10^3/uL (4.0-10.0)
[2022-11-28] MEDS: INSULIN LISPRO (NovoLOG) PER UNIT SC SCH ×4 (05:46→20:08)
[2022-11-28 05:48] LABS: CALCIUM LEVEL 7.4 MG/DL (8.3-10.6); CREATININE FOR GFR 2.81 MG/DL (0.70-1.30); GLOMERULAR FILTRATION RATE 23.2 (>35); MAGNESIUM LEVEL 1.8 MG/DL (1.8-2.4); POTASSIUM SERUM 4.9 MMOL/L (3.5-5.1)
[2022-11-28] MEDS ORDERED: HEPARIN 1,000UNITS/ML 10ML VIAL (FOR RADIOLOGY & DIALYSIS ONLY) XX SCH (06:00)
[2022-11-28] MEDS ORDERED: SODIUM CHLORIDE 0.9% 1000ML IV PRN (06:00)
[2022-11-28] MEDS ORDERED: HEPARIN 1,000UNITS/ML 10ML VIAL (FOR RADIOLOGY & DIALYSIS ONLY) IV PRN (06:00)
[2022-11-28] MEDS: SENNA 8.6 MG TAB (SENOKOT) PO SCH ×2 (06:03→21:58)
[2022-11-28] MEDS: APIXABAN 2.5 MG TAB (ELIQUIS) PO SCH ×2 (06:03→21:58)
[2022-11-28] MEDS: ESCITALOPRAM OXALATE 5MG TABLET (LEXAPRO) PO SCH (06:03)
[2022-11-28] MEDS: FINASTERIDE 5MG TAB PO SCH (06:04)
[2022-11-28] MEDS: METOPROLOL TART 12.5 MG PER 1/2 TAB PO SCH ×2 (06:04→21:00)
[2022-11-28] MEDS: LevoFLOXacin 500 MG TABLET PO SCH (06:04)
[2022-11-28] MEDS: LEVOTHYROXINE 88MCG TABLET (0.088 MG) PO SCH (06:05)
[2022-11-28] MEDS: MIDODRINE 5 MG TAB PO SCH ×3 (06:05→15:37)
[2022-11-28] MEDS: ASPIRIN 81MG ENTERIC TABLET PO SCH (06:05)
[2022-11-28] MEDS: NYSTATIN 100,000 UNITS/GM TOPICAL PWD 15GM TOP SCH ×2 (06:06→21:59)
[2022-11-28] MEDS: SODIUM CHLORIDE NASAL 0.65% SPRAY BTL (OCEAN) SCH ×2 (06:06→21:59)
[2022-11-28] MEDS: AMIODARONE 200 MG TAB (PACERONE) PO SCH ×2 (06:09→21:58)
[2022-11-28] MEDS: DARBEPOETIN 100MCG/0.5ML *DIALYSIS* SYRINGE IV SCH (10:17)
[2022-11-28] MEDS: IRON SUCROSE 100MG 5ML VIAL IV SCH (10:43)
[2022-11-28] MEDS: SANTYL OINT 30GM TOP SCH (12:56)
[2022-11-28 16:02] LABS: CORTISOL AM 14.8 UG/DL (4.3-22.4)
[2022-11-28 16:06] LABS: FREE T4 0.43 NG/DL (0.89-1.76); THYROID STIMULATING HORMONE 98.546 uIU/ML (0.55-4.78)
[2022-11-28] MEDS ORDERED: SODIUM CHLORIDE 0.9% 1000ML IV ONE (17:00)
[2022-11-28] MEDS: AMITRIPTYLINE 25MG TABLET PO SCH (21:58)
[2022-11-28] MEDS: ROSUVASTATIN 10 MG TAB (CRESTOR) PO SCH (21:58)
[2022-11-28] MEDS: LEVEMIR (INSULIN DETEMIR) 1 UNITS/0.01ML SC SCH (21:59)
[2022-11-28] MEDS: PANTOPRAZOLE 40MG TAB (PROTONIX) PO SCH (21:59)
[2022-11-29] VITALS (10 sets, daily range): BP systolic 86–137; BP diastolic 54–76; O2SAT 93–98
[2022-11-29] MEDS: LEVOTHYROXINE 100MCG TABLET (0.1MG) PO SCH (05:32)
[2022-11-29 05:46] LABS: HEMOGLOBIN 9.5 g/dl (13.5-17.5); MEAN CORPUSCULAR HEMOGLOBIN 29.7 pg (27.0-33.0); MEAN CORPUSCULAR HGB CONC 30.6 g/dl (32.0-36.5); MEAN CORPUSCULAR VOLUME 96.9 fl (80.0-96.0); PLATELET COUNT, AUTOMATED 251 10^3/uL (150-450); WHITE BLOOD COUNT 8.1 10^3/uL (4.0-10.0)
[2022-11-29 06:14] LABS: CALCIUM LEVEL 7.3 MG/DL (8.3-10.6); CREATININE FOR GFR 2.24 MG/DL (0.70-1.30); GLOMERULAR FILTRATION RATE 30.1 (>35); MAGNESIUM LEVEL 1.7 MG/DL (1.8-2.4); POTASSIUM SERUM 4.3 MMOL/L (3.5-5.1)
[2022-11-29] MEDS: INSULIN LISPRO (NovoLOG) PER UNIT SC SCH ×4 (08:06→21:00)
[2022-11-29] MEDS: FINASTERIDE 5MG TAB PO SCH (08:09)
[2022-11-29] MEDS: ESCITALOPRAM OXALATE 5MG TABLET (LEXAPRO) PO SCH (08:09)
[2022-11-29] MEDS: APIXABAN 2.5 MG TAB (ELIQUIS) PO SCH (08:09)
[2022-11-29] MEDS: ASPIRIN 81MG ENTERIC TABLET PO SCH (08:09)
[2022-11-29] MEDS: AMIODARONE 200 MG TAB (PACERONE) PO SCH ×2 (08:09→21:35)
[2022-11-29] MEDS: SENNA 8.6 MG TAB (SENOKOT) PO SCH ×2 (08:09→21:30)
[2022-11-29] MEDS: MIDODRINE 5 MG TAB PO SCH ×3 (08:09→17:19)
[2022-11-29] MEDS: NYSTATIN 100,000 UNITS/GM TOPICAL PWD 15GM TOP SCH ×2 (08:10→21:38)
[2022-11-29] MEDS: SODIUM CHLORIDE NASAL 0.65% SPRAY BTL (OCEAN) SCH ×2 (08:10→21:38)
[2022-11-29] MEDS: SANTYL OINT 30GM TOP SCH ×2 (08:11→09:00)
[2022-11-29] MEDS: MOM 30ML SUSPENSION UDC PO PRN (17:19)
[2022-11-29] MEDS: PANTOPRAZOLE 40MG TAB (PROTONIX) PO SCH (21:31)
[2022-11-29] MEDS: ROSUVASTATIN 10 MG TAB (CRESTOR) PO SCH (21:31)
[2022-11-29] MEDS: AMITRIPTYLINE 25MG TABLET PO SCH (21:32)
[2022-11-29] MEDS: LEVEMIR (INSULIN DETEMIR) 1 UNITS/0.01ML SC SCH (21:33)
[2022-11-29] MEDS: METOPROLOL TART 12.5 MG PER 1/2 TAB PO SCH (21:37)
[2022-11-30] VITALS (7 sets, daily range): BP systolic 97–116; BP diastolic 64–82
[2022-11-30] MEDS: LevoFLOXacin 500 MG TABLET PO SCH (05:50)
[2022-11-30] MEDS: LEVOTHYROXINE 100MCG TABLET (0.1MG) PO SCH (05:50)
[2022-11-30 06:09] LABS: HEMATOCRIT 31.2 % (42.0-52.0); HEMOGLOBIN 9.5 g/dl (13.5-17.5); MEAN CORPUSCULAR HEMOGLOBIN 29.7 pg (27.0-33.0); MEAN CORPUSCULAR HGB CONC 30.4 g/dl (32.0-36.5); MEAN CORPUSCULAR VOLUME 97.5 fl (80.0-96.0); PLATELET COUNT, AUTOMATED 256 10^3/uL (150-450); WHITE BLOOD COUNT 5.9 10^3/uL (4.0-10.0)
[2022-11-30 06:34] LABS: CALCIUM LEVEL 7.7 MG/DL (8.3-10.6); CREATININE FOR GFR 2.95 MG/DL (0.70-1.30); GLOMERULAR FILTRATION RATE 21.9 (>35); MAGNESIUM LEVEL 1.9 MG/DL (1.8-2.4); POTASSIUM SERUM 4.4 MMOL/L (3.5-5.1)
[2022-11-30] MEDS: INSULIN LISPRO (NovoLOG) PER UNIT SC SCH ×4 (07:22→20:42)
[2022-11-30] MEDS: SENNA 8.6 MG TAB (SENOKOT) PO SCH ×2 (09:25→22:30)
[2022-11-30] MEDS: MIDODRINE 5 MG TAB PO SCH ×3 (09:25→16:00)
[2022-11-30] MEDS: SODIUM CHLORIDE NASAL 0.65% SPRAY BTL (OCEAN) SCH ×2 (09:26→22:32)
[2022-11-30] MEDS: FINASTERIDE 5MG TAB PO SCH (09:26)
[2022-11-30] MEDS: AMIODARONE 200 MG TAB (PACERONE) PO SCH ×2 (09:26→22:30)
[2022-11-30] MEDS: SANTYL OINT 30GM TOP SCH (09:26)
[2022-11-30] MEDS: ESCITALOPRAM OXALATE 5MG TABLET (LEXAPRO) PO SCH (09:26)
[2022-11-30] MEDS: NYSTATIN 100,000 UNITS/GM TOPICAL PWD 15GM TOP SCH ×2 (09:26→22:33)
[2022-11-30] MEDS: ASPIRIN 81MG ENTERIC TABLET PO SCH (09:26)
[2022-11-30] MEDS: BISACODYL 10MG SUPP PR PRN (14:05)
[2022-11-30] MEDS ORDERED: fentaNYL 100 MCG/2 ML INJECTION As Ordered ONE (16:14)
[2022-11-30] MEDS ORDERED: HEPARIN 1,000UNITS/ML 10ML VIAL (FOR RADIOLOGY & DIALYSIS ONLY) As Ordered ONE (16:15)
[2022-11-30] MEDS ORDERED: LIDOCAINE 1% MDV 20ML VIAL As Ordered ONE (16:15)
[2022-11-30] MEDS ORDERED: MIDAZOLAM INJ 2MG/2ML VIAL As Ordered ONE (16:15)
[2022-11-30] MEDS ORDERED: ISOVUE-300 61% 100ML VIAL As Ordered ONE (16:15)
[2022-11-30] MEDS: PANTOPRAZOLE 40MG TAB (PROTONIX) PO SCH (22:30)
[2022-11-30] MEDS: ROSUVASTATIN 10 MG TAB (CRESTOR) PO SCH (22:30)
[2022-11-30] MEDS: AMITRIPTYLINE 25MG TABLET PO SCH (22:30)
[2022-11-30] MEDS: LEVEMIR (INSULIN DETEMIR) 1 UNITS/0.01ML SC SCH (22:32)
[2022-11-30] MEDS: METOPROLOL TART 12.5 MG PER 1/2 TAB PO SCH (22:33)
[2022-12-01] VITALS (9 sets, daily range): BP systolic 88–113; BP diastolic 56–75; O2SAT 86–96
[2022-12-01] MEDS ORDERED: SODIUM CHLORIDE 0.9% 1000ML IV PRN (06:00)
[2022-12-01] MEDS ORDERED: HEPARIN 1,000UNITS/ML 10ML VIAL (FOR RADIOLOGY & DIALYSIS ONLY) IV PRN (06:00)
[2022-12-01] MEDS ORDERED: HEPARIN 1,000UNITS/ML 10ML VIAL (FOR RADIOLOGY & DIALYSIS ONLY) XX SCH (06:00)
[2022-12-01 06:06] LABS: HEMATOCRIT 31.7 % (42.0-52.0); HEMOGLOBIN 9.7 g/dl (13.5-17.5); MEAN CORPUSCULAR HEMOGLOBIN 29.8 pg (27.0-33.0); MEAN CORPUSCULAR HGB CONC 30.6 g/dl (32.0-36.5); MEAN CORPUSCULAR VOLUME 97.5 fl (80.0-96.0); PLATELET COUNT, AUTOMATED 258 10^3/uL (150-450); RED BLOOD COUNT 3.25 10^6/uL (4.30-6.10); WHITE BLOOD COUNT 5.7 10^3/uL (4.0-10.0)
[2022-12-01 06:37] LABS: CALCIUM LEVEL 7.1 MG/DL (8.3-10.6); CREATININE FOR GFR 3.44 MG/DL (0.70-1.30); GLOMERULAR FILTRATION RATE 18.3 (>35); MAGNESIUM LEVEL 1.9 MG/DL (1.8-2.4); PHOSPHORUS LEVEL 3.2 MG/DL (2.4-5.1); POTASSIUM SERUM 4.8 MMOL/L (3.5-5.1)
[2022-12-01] MEDS: ESCITALOPRAM OXALATE 5MG TABLET (LEXAPRO) PO SCH (06:56)
[2022-12-01] MEDS: FINASTERIDE 5MG TAB PO SCH (06:56)
[2022-12-01] MEDS: LEVOTHYROXINE 100MCG TABLET (0.1MG) PO SCH (06:56)
[2022-12-01] MEDS: SENNA 8.6 MG TAB (SENOKOT) PO SCH ×2 (06:56→20:20)
[2022-12-01] MEDS: ASPIRIN 81MG ENTERIC TABLET PO SCH (06:56)
[2022-12-01] MEDS: MIDODRINE 5 MG TAB PO SCH ×3 (06:57→17:44)
[2022-12-01] MEDS: AMIODARONE 200 MG TAB (PACERONE) PO SCH ×2 (06:57→20:20)
[2022-12-01] MEDS: SODIUM CHLORIDE NASAL 0.65% SPRAY BTL (OCEAN) SCH ×2 (06:57→20:27)
[2022-12-01] MEDS: IRON SUCROSE 100MG 5ML VIAL IV SCH (08:27)
[2022-12-01] MEDS: INSULIN LISPRO (NovoLOG) PER UNIT SC SCH ×4 (08:35→21:00)
[2022-12-01] MEDS: SANTYL OINT 30GM TOP SCH (12:56)
[2022-12-01] MEDS: NYSTATIN 100,000 UNITS/GM TOPICAL PWD 15GM TOP SCH ×2 (12:56→20:27)
[2022-12-01] MEDS ORDERED: NS 250 ML IV ONE (15:30)
[2022-12-01] MEDS: PANTOPRAZOLE 40MG TAB (PROTONIX) PO SCH (20:20)
[2022-12-01] MEDS: APIXABAN 2.5 MG TAB (ELIQUIS) PO SCH (20:21)
[2022-12-01] MEDS: ROSUVASTATIN 10 MG TAB (CRESTOR) PO SCH (20:21)
[2022-12-01] MEDS: AMITRIPTYLINE 25MG TABLET PO SCH (20:21)
[2022-12-01] MEDS: METOPROLOL TART 12.5 MG PER 1/2 TAB PO SCH (20:22)
[2022-12-01] MEDS: LEVEMIR (INSULIN DETEMIR) 1 UNITS/0.01ML SC SCH (21:35)
[2022-12-02 04:52] VITALS: BP 112/75
[2022-12-02] MEDS: LEVOTHYROXINE 100MCG TABLET (0.1MG) PO SCH (05:34)
[2022-12-02] MEDS: ESCITALOPRAM OXALATE 5MG TABLET (LEXAPRO) PO SCH (08:34)
[2022-12-02] MEDS: ASPIRIN 81MG ENTERIC TABLET PO SCH (08:34)
[2022-12-02] MEDS: INSULIN LISPRO (NovoLOG) PER UNIT SC SCH ×4 (08:34→18:21)
[2022-12-02] MEDS: SENNA 8.6 MG TAB (SENOKOT) PO SCH (08:35)
[2022-12-02] MEDS: MIDODRINE 5 MG TAB PO SCH ×3 (08:35→16:00)
[2022-12-02] MEDS: AMIODARONE 100MG TABLET (PACERONE) PO SCH (08:35)
[2022-12-02] MEDS: FINASTERIDE 5MG TAB PO SCH (08:35)
[2022-12-02] MEDS: APIXABAN 2.5 MG TAB (ELIQUIS) PO SCH (08:35)
[2022-12-02] MEDS: SANTYL OINT 30GM TOP SCH (08:36)
[2022-12-02] MEDS: SODIUM CHLORIDE NASAL 0.65% SPRAY BTL (OCEAN) SCH ×2 (08:36→21:02)
[2022-12-02] MEDS: NYSTATIN 100,000 UNITS/GM TOPICAL PWD 15GM TOP SCH ×2 (08:36→21:02)
[2022-12-02] MEDS ORDERED: AMIODARONE 100MG TABLET (PACERONE) PO SCH (09:00)
[2022-12-02 09:24] VITALS: O2SAT 98
[2022-12-02] MEDS ORDERED: E-Z-PAQUE 96% w/w SUSP 176GM BTL As Ordered ONE (12:48)
[2022-12-02] MEDS ORDERED: BARIUM SULFATE 700 MG TABLET (E-Z-DISK) As Ordered ONE (12:48)
[2022-12-02] MEDS ORDERED: VARIBAR NECTAR 40% w/v 240ML SUSP BTL As Ordered ONE (12:48)
[2022-12-02] MEDS ORDERED: VARIBAR PUDDING 40% w/v 230ML TUBE As Ordered ONE (12:48)
[2022-12-02 14:52] VITALS: BP 91/68
[2022-12-02] MEDS: D5W/0.45% SODIUM CHLORIDE 1,000 ML IV SCH (16:50)
[2022-12-02 17:20] VITALS: BP 130/67
[2022-12-02] MEDS: METOPROLOL 5 MG/5 ML VIAL IV SCH (18:00)
[2022-12-02 20:00] VITALS: BP 117/70
[2022-12-02] MEDS: HEPARIN SOD (PORCINE) 5000UNITS/ML 1ML VIAL/SYRINGE SQ SCH (21:01)
[2022-12-03] VITALS: BP 106/72
[2022-12-03] MEDS: INSULIN LISPRO (NovoLOG) PER UNIT SC SCH ×4 (00:23→17:58)
[2022-12-03 04:20] VITALS: BP 104/54
[2022-12-03] MEDS: METOPROLOL 5 MG/5 ML VIAL IV SCH ×4 (05:33→17:57)
[2022-12-03] MEDS: HEPARIN SOD (PORCINE) 5000UNITS/ML 1ML VIAL/SYRINGE SQ SCH (05:58)
[2022-12-03] MEDS ORDERED: HEPARIN 1,000UNITS/ML 10ML VIAL (FOR RADIOLOGY & DIALYSIS ONLY) IV PRN (06:00)
[2022-12-03] MEDS ORDERED: HEPARIN 1,000UNITS/ML 10ML VIAL (FOR RADIOLOGY & DIALYSIS ONLY) XX SCH (06:00)
[2022-12-03] MEDS ORDERED: SODIUM CHLORIDE 0.9% 1000ML IV PRN (06:00)
[2022-12-03 07:30] VITALS: BP 104/62
[2022-12-03] MEDS: D5W/0.45% SODIUM CHLORIDE 1,000 ML IV SCH ×2 (07:44→22:49)
[2022-12-03] MEDS: SODIUM CHLORIDE NASAL 0.65% SPRAY BTL (OCEAN) SCH ×2 (07:45→20:16)
[2022-12-03] MEDS: NYSTATIN 100,000 UNITS/GM TOPICAL PWD 15GM TOP SCH ×2 (07:45→20:16)
[2022-12-03] MEDS: IRON SUCROSE 100MG 5ML VIAL IV SCH (09:25)
[2022-12-03] MEDS ORDERED: HEPARIN SOD (PORCINE) 5000UNITS/ML 1ML VIAL/SYRINGE IV PRN (10:40)
[2022-12-03 12:54] VITALS: BP 115/74
[2022-12-03] MEDS: HEPARIN DRIP 25,000 UNITS in IV 1 EA IV SCH (14:08)
[2022-12-03] MEDS: SANTYL OINT 30GM TOP SCH (15:54)
[2022-12-03 15:57] VITALS: BP 110/75
[2022-12-03 20:46] VITALS: BP 128/70
[2022-12-04] VITALS: BP 104/54
[2022-12-04] MEDS: INSULIN LISPRO (NovoLOG) PER UNIT SC SCH ×6 (00:15→18:49)
[2022-12-04 04:57] VITALS: BP 111/66
[2022-12-04] MEDS: METOPROLOL 5 MG/5 ML VIAL IV SCH ×4 (05:41→18:00)
[2022-12-04 07:27] VITALS: BP 98/54
[2022-12-04 08:11] LABS: CREATININE FOR GFR 2.44 MG/DL (0.70-1.30); GLOMERULAR FILTRATION RATE 27.3 (>35); MAGNESIUM LEVEL 1.7 MG/DL (1.8-2.4); PHOSPHORUS LEVEL 2.3 MG/DL (2.4-5.1); POTASSIUM SERUM 4.1 MMOL/L (3.5-5.1)
[2022-12-04] MEDS: SANTYL OINT 30GM TOP SCH (08:38)
[2022-12-04] MEDS: NYSTATIN 100,000 UNITS/GM TOPICAL PWD 15GM TOP SCH ×2 (08:38→20:24)
[2022-12-04] MEDS: SODIUM CHLORIDE NASAL 0.65% SPRAY BTL (OCEAN) SCH ×2 (08:38→20:24)
[2022-12-04] MEDS: ASPIRIN 81MG ENTERIC TABLET PO SCH (09:00)
[2022-12-04] MEDS: SENNA 8.6 MG TAB (SENOKOT) PO SCH (09:00)
[2022-12-04] MEDS: FINASTERIDE 5MG TAB PO SCH (09:00)
[2022-12-04] MEDS: ESCITALOPRAM OXALATE 5MG TABLET (LEXAPRO) PO SCH (09:00)
[2022-12-04] MEDS: AMIODARONE 100MG TABLET (PACERONE) PO SCH (09:00)
[2022-12-04] MEDS: APIXABAN 2.5 MG TAB (ELIQUIS) PO SCH (09:00)
[2022-12-04 09:21] LABS: HEMATOCRIT 32.7 % (42.0-52.0); HEMOGLOBIN 9.9 g/dl (13.5-17.5); MEAN CORPUSCULAR HEMOGLOBIN 29.6 pg (27.0-33.0); MEAN CORPUSCULAR HGB CONC 30.3 g/dl (32.0-36.5); MEAN CORPUSCULAR VOLUME 97.9 fl (80.0-96.0); PLATELET COUNT, AUTOMATED 276 10^3/uL (150-450); RED BLOOD COUNT 3.34 10^6/uL (4.30-6.10); WHITE BLOOD COUNT 4.6 10^3/uL (4.0-10.0)
[2022-12-04] MEDS: HEPARIN DRIP 25,000 UNITS in IV 1 EA IV SCH (11:19)
[2022-12-04 12:00] VITALS: BP 97/72
[2022-12-04] MEDS: PANTOPRAZOLE 40MG VIAL IV SCH (12:49)
[2022-12-04] MEDS: D5W/0.45% SODIUM CHLORIDE 1,000 ML IV SCH (14:56)
[2022-12-04 15:44] VITALS: BP 98/56
[2022-12-04 18:17] LABS: INR 1.22; PROTHROMBIN TIME 15.7 SECONDS (12.5-14.5)
[2022-12-04 18:19] LABS: PARTIAL THROMBOPLASTIN TIME 78.8 SECONDS (24.8-34.2)
[2022-12-04 19:31] VITALS: BP 101/59
[2022-12-05] VITALS (55 sets, daily range): BP systolic 78–162; BP diastolic 52–98
[2022-12-05] MEDS: METOPROLOL 5 MG/5 ML VIAL IV SCH
[2022-12-05] MEDS: INSULIN LISPRO (NovoLOG) PER UNIT SC SCH ×5 (00:43→23:36)
[2022-12-05 01:57] LABS: BASO % 0.7 % (0.0-1.0); EOS % 0.2 % (0.0-3.0); HEMATOCRIT 33.5 % (42.0-52.0); HEMOGLOBIN 9.9 g/dl (13.5-17.5); LYMPH # 1.7 10^3/uL (1.5-5.0); LYMPH % 28.8 % (24.0-44.0); MEAN CORPUSCULAR HEMOGLOBIN 30.1 pg (27.0-33.0); MEAN CORPUSCULAR HGB CONC 29.6 g/dl (32.0-36.5); MEAN CORPUSCULAR VOLUME 101.8 fl (80.0-96.0); MONO # 0.5 10^3/uL (0.0-0.8); MONO % 8.3 % (2.0-8.0); NEUTROPHILS # 3.5 10^3/uL (1.5-8.5); NEUTROPHILS % 59.6 % (36.0-66.0); PLATELET COUNT, AUTOMATED 266 10^3/uL (150-450); RED BLOOD COUNT 3.29 10^6/uL (4.30-6.10); WHITE BLOOD COUNT 5.9 10^3/uL (4.0-10.0)
[2022-12-05 02:02] LABS: BILIRUBIN,TOTAL 0.4 MG/DL (0.3-1.2); CALCIUM LEVEL 7.4 MG/DL (8.3-10.6); CREATININE FOR GFR 2.8 MG/DL (0.70-1.30); GLOMERULAR FILTRATION RATE 23.3 (>35); POTASSIUM SERUM 4.1 MMOL/L (3.5-5.1); TOTAL PROTEIN 5.2 G/DL (5.7-8.2)
[2022-12-05] MEDS: MIDAZOLAM 100MG/100ML-0.9%NACL 100 MG in IV 1 EA IV SCH (02:05)
[2022-12-05 02:12] LABS: MAGNESIUM LEVEL 1.9 MG/DL (1.8-2.4)
[2022-12-05] MEDS ORDERED: HYDROCORTISONE 100MG/2ML VIAL As Ordered ONE (02:25)
[2022-12-05 02:53] LABS: ABG BASE EXCESS -2.4 (-2.0-2.0); ABG O2 SATURATION 99.5 % (95.0-99.0); ABG PARTIAL PRESSURE CO2 42.3 mmHg (35.0-45.0); ABG STANDARD HCO3 22.5 MEQ/L (22.0-26.0); ABG TOTAL CO2 24.3 MEQ/L (23.0-31.0); ABG pH (ARTERIAL) 7.353 UNITS (7.350-7.450)
[2022-12-05] MEDS ORDERED: HYDROCORTISONE 100MG/2ML VIAL IV ONE (03:00)
[2022-12-05] MEDS: NOREPINEPHRINE 4MG IN D5 250ML 4 MG in IV 1 EA IV SCH ×8 (04:45→22:20)
[2022-12-05 06:14] LABS: HEMATOCRIT 29.8 % (42.0-52.0); HEMOGLOBIN 9.3 g/dl (13.5-17.5)
[2022-12-05 06:44] LABS: CALCIUM LEVEL 7.2 MG/DL (8.3-10.6); CREATININE FOR GFR 2.93 MG/DL (0.70-1.30); GLOMERULAR FILTRATION RATE 22.1 (>35); POTASSIUM SERUM 4.2 MMOL/L (3.5-5.1)
[2022-12-05] MEDS ORDERED: PIPERACILLIN/TAZOBACTAM SOD 2.25 GM in D5W MINI-BAG PLUS 50 ML IV SCH (06:55)
[2022-12-05] MEDS ORDERED: SODIUM CHLORIDE 0.9% 1000ML IV PRN (07:20)
[2022-12-05] MEDS ORDERED: HEPARIN 1,000UNITS/ML 10ML VIAL (FOR RADIOLOGY & DIALYSIS ONLY) XX SCH (07:20)
[2022-12-05] MEDS ORDERED: HEPARIN 1,000UNITS/ML 10ML VIAL (FOR RADIOLOGY & DIALYSIS ONLY) IV PRN (07:20)
[2022-12-05] MEDS: PIPERACILLIN/TAZOBACTAM SOD 4.5 GM in D5W MINI-BAG PLUS 50 ML IV SCH ×2 (08:05→20:00)
[2022-12-05] MEDS: D5W/0.45% SODIUM CHLORIDE 1,000 ML IV SCH (08:06)
[2022-12-05] MEDS: CHLORHEXIDINE GLUCONATE 0.12 % 15ML UDC (PERIDEX ORAL RINSE) MT SCH ×2 (08:13→21:24)
[2022-12-05] MEDS ORDERED: PANTOPRAZOLE 40MG VIAL IV SCH (09:00)
[2022-12-05] MEDS ORDERED: VANCOMYCIN HCL 750 MG, VIAL MATE ADAPTER 1 EACH in NS 250 ML IV SCH (09:50)
[2022-12-05] MEDS: NYSTATIN 100,000 UNITS/GM TOPICAL PWD 15GM TOP SCH ×2 (10:25→21:25)
[2022-12-05] MEDS: SANTYL OINT 30GM TOP SCH (10:25)
[2022-12-05] MEDS: SODIUM CHLORIDE NASAL 0.65% SPRAY BTL (OCEAN) SCH ×2 (10:25→21:24)
[2022-12-05] MEDS: PANTOPRAZOLE 40MG VIAL IV SCH (10:30)
[2022-12-05] MEDS ORDERED: VANCOMYCIN HCL 750 MG, VIAL MATE ADAPTER 1 EACH in D5W 250 ML IV ONE ×2 (11:00→14:00)
[2022-12-05 13:17] LABS: HEMATOCRIT 30.4 % (42.0-52.0); HEMOGLOBIN 9.7 g/dl (13.5-17.5)
[2022-12-05 19:22] LABS: HEMATOCRIT 29.1 % (42.0-52.0); HEMOGLOBIN 9.3 g/dl (13.5-17.5)
[2022-12-06] VITALS (35 sets, daily range): BP systolic 95–176; BP diastolic 66–100
[2022-12-06] MEDS: MIDAZOLAM 100MG/100ML-0.9%NACL 100 MG in IV 1 EA IV SCH (02:00)
[2022-12-06] MEDS: NOREPINEPHRINE 4MG IN D5 250ML 4 MG in IV 1 EA IV SCH ×4 (05:00→11:40)
[2022-12-06 06:11] LABS: ABG PARTIAL PRESSURE O2 87.6 mmHg (75.0-100.0); ABG STANDARD HCO3 22.8 MEQ/L (22.0-26.0); ABG TOTAL CO2 21.9 MEQ/L (23.0-31.0); ABG pH (ARTERIAL) 7.462 UNITS (7.350-7.450)
[2022-12-06 06:28] LABS: BASO % 0.2 % (0.0-1.0); HEMATOCRIT 35.8 % (42.0-52.0); HEMOGLOBIN 11.2 g/dl (13.5-17.5); LYMPH # 0.8 10^3/uL (1.5-5.0); LYMPH % 8.9 % (24.0-44.0); MEAN CORPUSCULAR HEMOGLOBIN 29.9 pg (27.0-33.0); MEAN CORPUSCULAR HGB CONC 31.3 g/dl (32.0-36.5); MEAN CORPUSCULAR VOLUME 95.5 fl (80.0-96.0); MONO # 0.8 10^3/uL (0.0-0.8); MONO % 9.8 % (2.0-8.0); NEUTROPHILS # 6.8 10^3/uL (1.5-8.5); NEUTROPHILS % 80.6 % (36.0-66.0); PLATELET COUNT, AUTOMATED 262 10^3/uL (150-450); RED BLOOD COUNT 3.75 10^6/uL (4.30-6.10); WHITE BLOOD COUNT 8.4 10^3/uL (4.0-10.0)
[2022-12-06] MEDS: INSULIN LISPRO (NovoLOG) PER UNIT SC SCH ×3 (06:30→18:02)
[2022-12-06 06:56] LABS: BILIRUBIN,TOTAL 0.6 MG/DL (0.3-1.2); CALCIUM LEVEL 7.8 MG/DL (8.3-10.6); CREATININE FOR GFR 3.36 MG/DL (0.70-1.30); GLOMERULAR FILTRATION RATE 18.9 (>35); POTASSIUM SERUM 4.3 MMOL/L (3.5-5.1); TOTAL PROTEIN 5.3 G/DL (5.7-8.2)
[2022-12-06] MEDS: CHLORHEXIDINE GLUCONATE 0.12 % 15ML UDC (PERIDEX ORAL RINSE) MT SCH ×2 (08:32→21:31)
[2022-12-06] MEDS: PIPERACILLIN/TAZOBACTAM SOD 4.5 GM in D5W MINI-BAG PLUS 50 ML IV SCH ×2 (08:32→20:45)
[2022-12-06] MEDS: PANTOPRAZOLE 40MG VIAL IV SCH (08:32)
[2022-12-06] MEDS: NYSTATIN 100,000 UNITS/GM TOPICAL PWD 15GM TOP SCH ×2 (08:33→21:33)
[2022-12-06] MEDS: SODIUM CHLORIDE NASAL 0.65% SPRAY BTL (OCEAN) SCH ×2 (08:33→21:32)
[2022-12-06] MEDS: SANTYL OINT 30GM TOP SCH (08:34)
[2022-12-06] MEDS ORDERED: ACETAMINOPHEN TAB 650MG DOSE (2X325MG) PO PRN (08:40)
[2022-12-06] MEDS ORDERED: fentaNYL 100 MCG/2 ML INJECTION IV ONE (10:20)
[2022-12-06 10:40] LABS: VANCOMYCIN RANDOM 12.4 UG/ML
[2022-12-06 12:16] LABS: APPEARANCE, BODY FLUID CLEAR (CLEAR); PLEURAL FL COLOR YELLOW (COLORLESS); SOURCE, BODY FLUID PLEURAL
[2022-12-06 12:18] LABS: PH BODY FLUID 7.674 UNITS (NOT ESTABLISHED); SOURCE, BODY FLUID pH PLEURAL
[2022-12-06 12:35] LABS: SOURCE, BODY FLUID GLUCOSE PLEURAL; SOURCE, BODY FLUID TRIG PLEURAL; TRIGLYCERIDE, BODY FLUID 15 MG/DL (NOT ESTABLISHED)
[2022-12-06 12:37] LABS: AMYLASE, BODY FLUID 42 U/L (NOT ESTABLISHED); LDH, BODY FLUID 99 U/L (NOT ESTABLISHED); SOURCE, BODY FLUID AMYLASE PLEURAL; SOURCE, BODY FLUID LDH PLEURAL
[2022-12-06 12:38] LABS: CHOLESTEROL, BODY FLUID < 25 MG/DL (NOT ESTABLISHED); SOURCE, BODY FLUID CHOL PLEURAL; SOURCE, BODY FLUID TOT PROTEIN PLEURAL; TOTAL PROTEIN, BODY FLUID 2.2 G/DL (NOT ESTABLISHED)
[2022-12-06] MEDS: AMIODARONE 100MG TABLET (PACERONE) PO SCH (13:43)
[2022-12-06] MEDS: SENNA 8.6 MG TAB (SENOKOT) PO SCH ×2 (13:44→21:32)
[2022-12-06] MEDS ORDERED: VANCOMYCIN HCL 1,000 MG, VIAL MATE ADAPTER 1 EACH in D5W 250 ML IV SCH (16:00)
[2022-12-06] MEDS: LEVOTHYROXINE 100MCG (0.1MG) 5ML SDV PF (SOLUTION FORM) IV SCH (18:01)
[2022-12-06] MEDS ORDERED: METOPROLOL TART 12.5 MG PER 1/2 TAB PO SCH (21:00)
[2022-12-06] MEDS ORDERED: ROSUVASTATIN 10 MG TAB (CRESTOR) PO SCH (21:00)
[2022-12-07] VITALS (25 sets, daily range): BP systolic 86–137; BP diastolic 55–93
[2022-12-07] MEDS: INSULIN LISPRO (NovoLOG) PER UNIT SC SCH ×4 (00:42→18:00)
[2022-12-07] MEDS: MIDAZOLAM 100MG/100ML-0.9%NACL 100 MG in IV 1 EA IV SCH (02:00)
[2022-12-07 05:14] LABS: BASO % 0.1 % (0.0-1.0); HEMATOCRIT 32.4 % (42.0-52.0); HEMOGLOBIN 10.5 g/dl (13.5-17.5); LYMPH # 0.4 10^3/uL (1.5-5.0); LYMPH % 5.2 % (24.0-44.0); MEAN CORPUSCULAR HEMOGLOBIN 30.5 pg (27.0-33.0); MEAN CORPUSCULAR HGB CONC 32.4 g/dl (32.0-36.5); MEAN CORPUSCULAR VOLUME 94.2 fl (80.0-96.0); MONO # 0.5 10^3/uL (0.0-0.8); MONO % 5.3 % (2.0-8.0); NEUTROPHILS # 7.5 10^3/uL (1.5-8.5); PLATELET COUNT, AUTOMATED 278 10^3/uL (150-450); RED BLOOD COUNT 3.44 10^6/uL (4.30-6.10); WHITE BLOOD COUNT 8.4 10^3/uL (4.0-10.0)
[2022-12-07 05:51] LABS: ALBUMIN 1.9 G/DL (3.2-5.2); BILIRUBIN,TOTAL 0.5 MG/DL (0.3-1.2); CALCIUM LEVEL 7.5 MG/DL (8.3-10.6); CREATININE FOR GFR 3.75 MG/DL (0.70-1.30); FREE T4 0.44 NG/DL (0.89-1.76); GLOMERULAR FILTRATION RATE 16.6 (>35); POTASSIUM SERUM 4.1 MMOL/L (3.5-5.1); THYROID STIMULATING HORMONE 58.36 uIU/ML (0.55-4.78); TOTAL PROTEIN 5.1 G/DL (5.7-8.2)
[2022-12-07 05:55] LABS: ABG BASE EXCESS -2.6 (-2.0-2.0); ABG HCO3 20.8 MEQ/L (22.0-26.0); ABG O2 SATURATION 94.6 % (95.0-99.0); ABG PARTIAL PRESSURE CO2 31.2 mmHg (35.0-45.0); ABG PARTIAL PRESSURE O2 73.6 mmHg (75.0-100.0); ABG STANDARD HCO3 22.2 MEQ/L (22.0-26.0); ABG TOTAL CO2 21.7 MEQ/L (23.0-31.0); ABG pH (ARTERIAL) 7.441 UNITS (7.350-7.450)
[2022-12-07] MEDS ORDERED: LEVOTHYROXINE 100MCG TABLET (0.1MG) PO SCH (06:00)
[2022-12-07] MEDS: AMIODARONE 100MG TABLET (PACERONE) PO SCH (06:38)
[2022-12-07] MEDS: SENNA 8.6 MG TAB (SENOKOT) PO SCH ×2 (06:38→20:54)
[2022-12-07] MEDS ORDERED: HEPARIN 1,000UNITS/ML 10ML VIAL (FOR RADIOLOGY & DIALYSIS ONLY) XX SCH (06:50)
[2022-12-07] MEDS ORDERED: SODIUM CHLORIDE 0.9% 1000ML IV PRN (06:50)
[2022-12-07] MEDS ORDERED: HEPARIN 1,000UNITS/ML 10ML VIAL (FOR RADIOLOGY & DIALYSIS ONLY) IV PRN (06:50)
[2022-12-07] MEDS ORDERED: VANCOMYCIN HCL 500 MG in D5W MINI-BAG PLUS 100 ML IV ONE (07:15)
[2022-12-07] MEDS: CHLORHEXIDINE GLUCONATE 0.12 % 15ML UDC (PERIDEX ORAL RINSE) MT SCH ×2 (08:21→20:55)
[2022-12-07] MEDS: NYSTATIN 100,000 UNITS/GM TOPICAL PWD 15GM TOP SCH ×2 (08:21→20:56)
[2022-12-07] MEDS: PANTOPRAZOLE 40MG VIAL IV SCH (08:21)
[2022-12-07] MEDS: SANTYL OINT 30GM TOP SCH (08:23)
[2022-12-07] MEDS: SODIUM CHLORIDE NASAL 0.65% SPRAY BTL (OCEAN) SCH ×2 (08:24→20:55)
[2022-12-07] MEDS: PIPERACILLIN/TAZOBACTAM SOD 4.5 GM in D5W MINI-BAG PLUS 50 ML IV SCH ×2 (09:15→19:40)
[2022-12-07] MEDS: METOPROLOL TART 25 MG TABLET PO SCH ×2 (10:58→20:55)
[2022-12-07] MEDS: IRON SUCROSE 100MG 5ML VIAL IV SCH (14:08)
[2022-12-07] MEDS: DARBEPOETIN 100MCG/0.5ML *DIALYSIS* SYRINGE IV SCH (15:09)
[2022-12-07] MEDS: LEVOTHYROXINE 100MCG (0.1MG) 5ML SDV PF (SOLUTION FORM) IV SCH (18:13)
[2022-12-07] MEDS: MOM 30ML SUSPENSION UDC PO PRN (20:54)
[2022-12-08] VITALS (24 sets, daily range): BP systolic 82–136; BP diastolic 53–90
[2022-12-08] MEDS: INSULIN LISPRO (NovoLOG) PER UNIT SC SCH ×5 (00:22→18:31)
[2022-12-08 04:50] LABS: HEMATOCRIT 32.5 % (42.0-52.0); HEMOGLOBIN 10.1 g/dl (13.5-17.5); MEAN CORPUSCULAR HEMOGLOBIN 29.6 pg (27.0-33.0); MEAN CORPUSCULAR HGB CONC 31.1 g/dl (32.0-36.5); MEAN CORPUSCULAR VOLUME 95.3 fl (80.0-96.0); PLATELET COUNT, AUTOMATED 277 10^3/uL (150-450); RED BLOOD COUNT 3.41 10^6/uL (4.30-6.10); WHITE BLOOD COUNT 7.8 10^3/uL (4.0-10.0)
[2022-12-08 05:32] LABS: ALBUMIN 2.2 G/DL (3.2-5.2); BILIRUBIN,TOTAL 0.4 MG/DL (0.3-1.2); CALCIUM LEVEL 7.9 MG/DL (8.3-10.6); CREATININE FOR GFR 2.73 MG/DL (0.70-1.30); TOTAL PROTEIN 5.7 G/DL (5.7-8.2)
[2022-12-08 05:42] LABS: ABG BASE EXCESS -0.1 (-2.0-2.0); ABG HCO3 23.7 MEQ/L (22.0-26.0); ABG O2 SATURATION 94.6 % (95.0-99.0); ABG PARTIAL PRESSURE CO2 35.5 mmHg (35.0-45.0); ABG PARTIAL PRESSURE O2 70.8 mmHg (75.0-100.0); ABG STANDARD HCO3 24.3 MEQ/L (22.0-26.0); ABG TOTAL CO2 24.8 MEQ/L (23.0-31.0); ABG pH (ARTERIAL) 7.442 UNITS (7.350-7.450)
[2022-12-08] MEDS: AMIODARONE 100MG TABLET (PACERONE) PO SCH (08:22)
[2022-12-08] MEDS: SENNA 8.6 MG TAB (SENOKOT) PO SCH ×2 (08:22→20:53)
[2022-12-08] MEDS: PIPERACILLIN/TAZOBACTAM SOD 4.5 GM in D5W MINI-BAG PLUS 50 ML IV SCH ×2 (08:22→20:52)
[2022-12-08] MEDS: PANTOPRAZOLE 40MG VIAL IV SCH (08:22)
[2022-12-08] MEDS: MIRALAX *UNIT DOSE* 17GM PACKET PO SCH ×2 (08:22→20:53)
[2022-12-08] MEDS: NYSTATIN 100,000 UNITS/GM TOPICAL PWD 15GM TOP SCH ×2 (08:23→22:25)
[2022-12-08] MEDS: SODIUM CHLORIDE NASAL 0.65% SPRAY BTL (OCEAN) SCH ×2 (08:23→21:00)
[2022-12-08] MEDS: METOPROLOL TART 25 MG TABLET PO SCH ×2 (08:23→20:53)
[2022-12-08] MEDS: CHLORHEXIDINE GLUCONATE 0.12 % 15ML UDC (PERIDEX ORAL RINSE) MT SCH ×2 (11:48→20:53)
[2022-12-08] MEDS: ASPIRIN 81MG ENTERIC TABLET PO SCH (11:49)
[2022-12-08] MEDS: MIDODRINE 5 MG TAB PO SCH ×2 (11:50→16:30)
[2022-12-08] MEDS: FINASTERIDE 5MG TAB PO SCH (11:51)
[2022-12-08] MEDS: ESCITALOPRAM OXALATE 5MG TABLET (LEXAPRO) PO SCH (11:53)
[2022-12-08] MEDS: SANTYL OINT 30GM TOP SCH (11:55)
[2022-12-08] MEDS: HEPARIN SOD (PORCINE) 5000UNITS/ML 1ML VIAL/SYRINGE SQ SCH ×2 (11:56→20:55)
[2022-12-08] MEDS ORDERED: VANCOMYCIN HCL 750 MG, VIAL MATE ADAPTER 1 EACH in D5W 250 ML IV ONE (12:00)
[2022-12-08] MEDS: LEVOTHYROXINE 100MCG (0.1MG) 5ML SDV PF (SOLUTION FORM) IV SCH (16:30)
[2022-12-08] MEDS: LEVEMIR (INSULIN DETEMIR) 1 UNITS/0.01ML SC SCH (20:52)
[2022-12-08] MEDS: AMITRIPTYLINE 25MG TABLET PO SCH (22:25)
[2022-12-09] VITALS (31 sets, daily range): BP systolic 82–130; BP diastolic 56–85
[2022-12-09] MEDS: INSULIN LISPRO (NovoLOG) PER UNIT SC SCH ×4 (00:08→18:34)
[2022-12-09 04:27] LABS: HEMATOCRIT 32.4 % (42.0-52.0); HEMOGLOBIN 10.3 g/dl (13.5-17.5); MEAN CORPUSCULAR HEMOGLOBIN 30.3 pg (27.0-33.0); MEAN CORPUSCULAR HGB CONC 31.8 g/dl (32.0-36.5); MEAN CORPUSCULAR VOLUME 95.3 fl (80.0-96.0); PLATELET COUNT, AUTOMATED 252 10^3/uL (150-450); WHITE BLOOD COUNT 6.3 10^3/uL (4.0-10.0)
[2022-12-09 04:57] LABS: VANCOMYCIN RANDOM 16.5 UG/ML
[2022-12-09 05:10] LABS: CALCIUM LEVEL 7.4 MG/DL (8.3-10.6); CREATININE FOR GFR 3.08 MG/DL (0.70-1.30); GLOMERULAR FILTRATION RATE 20.8 (>35); PHOSPHORUS LEVEL 2.2 MG/DL (2.4-5.1); POTASSIUM SERUM 4.2 MMOL/L (3.5-5.1)
[2022-12-09 05:39] LABS: ABG BASE EXCESS 0.3 (-2.0-2.0); ABG HCO3 23.8 MEQ/L (22.0-26.0); ABG O2 SATURATION 96.3 % (95.0-99.0); ABG PARTIAL PRESSURE CO2 34.2 mmHg (35.0-45.0); ABG PARTIAL PRESSURE O2 77.4 mmHg (75.0-100.0); ABG STANDARD HCO3 24.8 MEQ/L (22.0-26.0); ABG TOTAL CO2 24.8 MEQ/L (23.0-31.0)
[2022-12-09] MEDS: MIRALAX *UNIT DOSE* 17GM PACKET PO SCH ×2 (08:20→20:13)
[2022-12-09] MEDS: PIPERACILLIN/TAZOBACTAM SOD 4.5 GM in D5W MINI-BAG PLUS 50 ML IV SCH ×2 (08:20→20:11)
[2022-12-09] MEDS: SENNA 8.6 MG TAB (SENOKOT) PO SCH ×2 (08:20→20:12)
[2022-12-09] MEDS: CHLORHEXIDINE GLUCONATE 0.12 % 15ML UDC (PERIDEX ORAL RINSE) MT SCH ×2 (08:20→20:13)
[2022-12-09] MEDS: FINASTERIDE 5MG TAB PO SCH (08:21)
[2022-12-09] MEDS: MIDODRINE 5 MG TAB PO SCH ×3 (08:21→16:25)
[2022-12-09] MEDS: ASPIRIN 81MG ENTERIC TABLET PO SCH (08:23)
[2022-12-09] MEDS: METOPROLOL TART 25 MG TABLET PO SCH ×2 (08:25→20:13)
[2022-12-09] MEDS: HEPARIN SOD (PORCINE) 5000UNITS/ML 1ML VIAL/SYRINGE SQ SCH ×2 (08:32→20:11)
[2022-12-09] MEDS: PANTOPRAZOLE 40MG VIAL IV SCH (08:33)
[2022-12-09] MEDS: AMIODARONE 100MG TABLET (PACERONE) PO SCH (08:34)
[2022-12-09] MEDS: SODIUM CHLORIDE NASAL 0.65% SPRAY BTL (OCEAN) SCH ×2 (08:35→20:14)
[2022-12-09] MEDS: SANTYL OINT 30GM TOP SCH (08:35)
[2022-12-09] MEDS: ESCITALOPRAM OXALATE 5MG TABLET (LEXAPRO) PO SCH (08:55)
[2022-12-09] MEDS: NYSTATIN 100,000 UNITS/GM TOPICAL PWD 15GM TOP SCH ×2 (09:11→20:14)
[2022-12-09] MEDS ORDERED: HEPARIN 1,000UNITS/ML 10ML VIAL (FOR RADIOLOGY & DIALYSIS ONLY) IV PRN (10:10)
[2022-12-09] MEDS ORDERED: SODIUM CHLORIDE 0.9% 1000ML IV PRN (10:10)
[2022-12-09] MEDS ORDERED: HEPARIN 1,000UNITS/ML 10ML VIAL (FOR RADIOLOGY & DIALYSIS ONLY) XX SCH (10:10)
[2022-12-09 13:50] LABS: AMPHETAMINES LEVEL URINE NEGATIVE (NEGATIVE); BARBITURATES URINE NEGATIVE (NEGATIVE); CANNABINOIDS URINE NEGATIVE (NEGATIVE); COCAINE METABOLITE URINE NEGATIVE (NEGATIVE); METHADONE URINE NEGATIVE (NEGATIVE); OPIATES URINE NEGATIVE (NEGATIVE); PHENCYCLIDINE URINE NEGATIVE (NEGATIVE)
[2022-12-09 13:51] LABS: BENZODIAZEPINES URINE POSITIVE (NEGATIVE)
[2022-12-09] MEDS: IRON SUCROSE 100MG 5ML VIAL IV SCH (15:44)
[2022-12-09] MEDS: LACRILUBE (AKWA TEARS) OPHTH OINT 3.5GM OU SCH ×2 (16:25→20:14)
[2022-12-09] MEDS: LEVOTHYROXINE 100MCG (0.1MG) 5ML SDV PF (SOLUTION FORM) IV SCH (18:34)
[2022-12-09] MEDS: LEVEMIR (INSULIN DETEMIR) 1 UNITS/0.01ML SC SCH (20:10)
[2022-12-09] MEDS: AMITRIPTYLINE 25MG TABLET PO SCH (20:12)
[2022-12-09] MEDS: MOM 30ML SUSPENSION UDC PO PRN (20:13)
[2022-12-10] VITALS (14 sets, daily range): BP systolic 93–113; BP diastolic 55–73
[2022-12-10] MEDS: INSULIN LISPRO (NovoLOG) PER UNIT SC SCH ×3 (00:31→12:13)
[2022-12-10 05:06] LABS: VANCOMYCIN RANDOM 12.9 UG/ML
[2022-12-10 05:12] LABS: ALBUMIN 1.7 G/DL (3.2-5.2); BILIRUBIN,TOTAL 0.3 MG/DL (0.3-1.2); CALCIUM LEVEL 7.5 MG/DL (8.3-10.6); CREATININE FOR GFR 2.3 MG/DL (0.70-1.30); GLOMERULAR FILTRATION RATE 29.2 (>35); POTASSIUM SERUM 3.9 MMOL/L (3.5-5.1); TOTAL PROTEIN 4.6 G/DL (5.7-8.2)
[2022-12-10 06:11] LABS: ABG BASE EXCESS 1.1 (-2.0-2.0); ABG HCO3 24.7 MEQ/L (22.0-26.0); ABG O2 SATURATION 95.8 % (95.0-99.0); ABG PARTIAL PRESSURE CO2 35.9 mmHg (35.0-45.0); ABG PARTIAL PRESSURE O2 74.5 mmHg (75.0-100.0); ABG STANDARD HCO3 25.4 MEQ/L (22.0-26.0); ABG TOTAL CO2 25.8 MEQ/L (23.0-31.0); ABG pH (ARTERIAL) 7.456 UNITS (7.350-7.450)
[2022-12-10 07:23] LABS: HEMATOCRIT 32.4 % (42.0-52.0); HEMOGLOBIN 9.9 g/dl (13.5-17.5); MEAN CORPUSCULAR HEMOGLOBIN 30.2 pg (27.0-33.0); MEAN CORPUSCULAR HGB CONC 30.6 g/dl (32.0-36.5); MEAN CORPUSCULAR VOLUME 98.8 fl (80.0-96.0); PLATELET COUNT, AUTOMATED 260 10^3/uL (150-450); RED BLOOD COUNT 3.28 10^6/uL (4.30-6.10)
[2022-12-10 07:31] LABS: MAGNESIUM LEVEL 1.6 MG/DL (1.8-2.4); PHOSPHORUS LEVEL 1.8 MG/DL (2.4-5.1)
[2022-12-10] MEDS: MIDODRINE 5 MG TAB PO SCH ×2 (07:48→12:13)
[2022-12-10] MEDS ORDERED: VANCOMYCIN HCL 1,000 MG, VIAL MATE ADAPTER 1 EACH in D5W 250 ML IV ONE (08:00)
[2022-12-10] MEDS: MAG SULF 1GM/100ML (MAG RUN) 1 GM in IV 1 EA IV SCH ×2 (08:38→09:57)
[2022-12-10] MEDS: CHLORHEXIDINE GLUCONATE 0.12 % 15ML UDC (PERIDEX ORAL RINSE) MT SCH (08:38)
[2022-12-10] MEDS: HEPARIN SOD (PORCINE) 5000UNITS/ML 1ML VIAL/SYRINGE SQ SCH (08:39)
[2022-12-10] MEDS: FINASTERIDE 5MG TAB PO SCH (08:40)
[2022-12-10] MEDS: METOPROLOL TART 25 MG TABLET PO SCH (08:40)
[2022-12-10] MEDS: ESCITALOPRAM OXALATE 5MG TABLET (LEXAPRO) PO SCH (08:40)
[2022-12-10] MEDS: SODIUM CHLORIDE NASAL 0.65% SPRAY BTL (OCEAN) SCH (08:41)
[2022-12-10] MEDS: SENNA 8.6 MG TAB (SENOKOT) PO SCH (08:41)
[2022-12-10] MEDS: AMIODARONE 100MG TABLET (PACERONE) PO SCH (08:41)
[2022-12-10] MEDS: MIRALAX *UNIT DOSE* 17GM PACKET PO SCH (08:41)
[2022-12-10] MEDS: PANTOPRAZOLE 40MG VIAL IV SCH (08:41)
[2022-12-10] MEDS: SANTYL OINT 30GM TOP SCH (08:42)
[2022-12-10] MEDS: LACRILUBE (AKWA TEARS) OPHTH OINT 3.5GM OU SCH (08:42)
[2022-12-10] MEDS: NYSTATIN 100,000 UNITS/GM TOPICAL PWD 15GM TOP SCH (08:42)
[2022-12-10] MEDS ORDERED: BISACODYL ENEMA 10MG/30ML PR ONE (09:00)
[2022-12-10] MEDS ORDERED: METOCLOPRAMIDE INJ 10MG/2ML VIAL IV SCH (09:00)
[2022-12-10] MEDS ORDERED: ASPIRIN 81MG CHEW TABLET PEG SCH (09:00)
[2022-12-10] MEDS ORDERED: POTASSIUM PHOSPHATE IV ONE (11:00)
[2022-12-10] MEDS ORDERED: NS IV ONE (11:00)
[2022-12-10] MEDS ORDERED: LORazepam 2 MG/ML 1ML VIAL IV PRN (13:45)
[2022-12-10] MEDS ORDERED: MORPHINE 2 MG/ML 1ML VIAL IV PRN (13:45)
[2022-12-10] MEDS ORDERED: LEVEMIR (INSULIN DETEMIR) 1 UNITS/0.01ML SC SCH (21:00)
== END 2022-12-10 16:27 | disposition expired | DRG 673 ==
LOC: M ED 10:19 → EDBD 10:19 → M ED INP 14:47 → ENRESERV 11-18 07:56 → M MSPAV 11-18 09:39 → M PCU 12-02 17:08 → M ICU 12-05 01:38
PROVIDERS: ADMIT Internal Medicine; ATTEND Internal Medicine Pulmonary Disease
PROC: 0JH63XZ Insertion of Tunneled Vascular Access Device into Chest Subcutaneous Tissue and Fascia, Percutaneous Approach (ICD-10-PCS; 2022-11-18)
PROC: 02H633Z Insertion of Infusion Device into Right Atrium, Percutaneous Approach (ICD-10-PCS; 2022-11-18)
PROC: 0JBR0ZZ Excision of Left Foot Subcutaneous Tissue and Fascia, Open Approach (ICD-10-PCS; principal; 2022-11-18 12:00)
PROC: 5A1D70Z Performance of Urinary Filtration, Intermittent, Less than 6 Hours Per Day (ICD-10-PCS; 2022-11-19)
PROC: 30233N1 Transfusion of Nonautologous Red Blood Cells into Peripheral Vein, Percutaneous Approach (ICD-10-PCS; 2022-11-26)
PROC: 047L341 Dilation of Left Femoral Artery with Drug-eluting Intraluminal Device, using Drug-Coated Balloon, Percutaneous Approach (ICD-10-PCS; 2022-11-30)
PROC: 04FL3ZZ Fragmentation of Left Femoral Artery, Percutaneous Approach (ICD-10-PCS; 2022-11-30)
PROC: 04FU3ZZ Fragmentation of Left Peroneal Artery, Percutaneous Approach (ICD-10-PCS; 2022-11-30)
PROC: B246ZZZ Ultrasonography of Right and Left Heart (ICD-10-PCS; 2022-12-05)
PROC: 0BH17EZ Insertion of Endotracheal Airway into Trachea, Via Natural or Artificial Opening (ICD-10-PCS; 2022-12-05)
PROC: 5A1955Z Respiratory Ventilation, Greater than 96 Consecutive Hours (ICD-10-PCS; 2022-12-05)
PROC: 0W9930Z Drainage of Right Pleural Cavity with Drainage Device, Percutaneous Approach (ICD-10-PCS; 2022-12-06)
DX: N17.9 Acute kidney failure, unspecified (principal); J18.9 Pneumonia, unspecified organism; I50.33 Acute on chronic diastolic (congestive) heart failure; J96.01 Acute respiratory failure with hypoxia; J15.212 Pneumonia due to Methicillin resistant Staphylococcus aureus; J69.0 Pneumonitis due to inhalation of food and vomit; J98.11 Atelectasis; L97.528 Non-pressure chronic ulcer of other part of left foot with other specified severity; D62 Acute posthemorrhagic anemia; G93.1 Anoxic brain damage, not elsewhere classified; I13.2 Hypertensive heart and chronic kidney disease with heart failure and with stage 5 chronic kidney disease, or end stage renal disease; I42.9 Cardiomyopathy, unspecified; E87.20 Acidosis, unspecified; E46 Unspecified protein-calorie malnutrition; G93.40 Encephalopathy, unspecified; I48.20 Chronic atrial fibrillation, unspecified; J90 Pleural effusion, not elsewhere classified; Z51.5 Encounter for palliative care; Z66 Do not resuscitate; E11.22 Type 2 diabetes mellitus with diabetic chronic kidney disease; N18.6 End stage renal disease; K21.9 Gastro-esophageal reflux disease without esophagitis; M10.9 Gout, unspecified; E03.9 Hypothyroidism, unspecified; N40.1 Benign prostatic hyperplasia with lower urinary tract symptoms; R33.9 Retention of urine, unspecified; N25.81 Secondary hyperparathyroidism of renal origin; E11.65 Type 2 diabetes mellitus with hyperglycemia; B35.1 Tinea unguium; Z85.818 Personal history of malignant neoplasm of other sites of lip, oral cavity, and pharynx; Z92.21 Personal history of antineoplastic chemotherapy; Z92.3 Personal history of irradiation; Z98.41 Cataract extraction status, right eye; Z98.42 Cataract extraction status, left eye; Z79.01 Long term (current) use of anticoagulants; Z79.4 Long term (current) use of insulin; Z79.890 Hormone replacement therapy; Z79.899 Other long term (current) drug therapy; Z88.8 Allergy status to other drugs, medicaments and biological substances; J30.9 Allergic rhinitis, unspecified; D63.1 Anemia in chronic kidney disease; E11.621 Type 2 diabetes mellitus with foot ulcer; I08.3 Combined rheumatic disorders of mitral, aortic and tricuspid valves; I95.3 Hypotension of hemodialysis; I45.19 Other right bundle-branch block; E11.51 Type 2 diabetes mellitus with diabetic peripheral angiopathy without gangrene; I27.20 Pulmonary hypertension, unspecified; F32.A Depression, unspecified; Z99.2 Dependence on renal dialysis; D50.9 Iron deficiency anemia, unspecified; M50.30 Other cervical disc degeneration, unspecified cervical region; R04.0 Epistaxis; I46.9 Cardiac arrest, cause unspecified; I70.0 Atherosclerosis of aorta

== ENCOUNTER → 2022-11-17 | Outpatient (REF) | payer MEDICARE, MEDICAID ==
[~2022-11-17] MED LIST changes: +INSU100I6 SC; -LEVE1INJ5 SC; +NS 500 ML IV ONE
[2022-11-17 07:41] LABS: HEMATOCRIT 33.3 % (42.0-52.0); HEMOGLOBIN 10.3 g/dl (13.5-17.5); MEAN CORPUSCULAR HEMOGLOBIN 29.3 pg (27.0-33.0); MEAN CORPUSCULAR HGB CONC 30.9 g/dl (32.0-36.5); MEAN CORPUSCULAR VOLUME 94.6 fl (80.0-96.0); PLATELET COUNT, AUTOMATED 338 10^3/uL (150-450); RED BLOOD COUNT 3.52 10^6/uL (4.30-6.10); WHITE BLOOD COUNT 4.8 10^3/uL (4.0-10.0)
[2022-11-17 08:28] LABS: ALBUMIN 2.8 G/DL (3.2-5.2); BILIRUBIN,TOTAL 0.3 MG/DL (0.3-1.2); CALCIUM LEVEL 8.6 MG/DL (8.3-10.6); CREATININE FOR GFR 4.4 MG/DL (0.70-1.30); GLOMERULAR FILTRATION RATE 13.8 (>35); TOTAL PROTEIN 6.8 G/DL (5.7-8.2)
== END ==
LOC: SKLAB3 08:53
PROVIDERS: ATTEND Internal Medicine
DX: E11.9 Type 2 diabetes mellitus without complications (principal); I50.9 Heart failure, unspecified